=== PATIENT | male | born 1960 ===

== ENCOUNTER 2020-04-24 09:33 | Outpatient (REF) | payer MEDICARE, MEDICAID, SELFPAY | END 2020-04-24 09:34 | disposition home or self-care (01) | LOC: HO.LAB 09:33 | PROVIDERS: PCP Internal Medicine; Visit Provider Internal Medicine | DX: Z20.828 Contact with and (suspected) exposure to other viral communicable diseases (principal) | CPT/HCPCS: C9803; U0003 ==

== ENCOUNTER 2020-05-06 11:39 | Emergency (ER) | payer MEDICARE, MEDICAID, SELFPAY ==
[2020-05-06 11:41] VITALS: PULSE 84; RESP 16; TEMP 37.2; O2SAT 98; BMI 29.9
--- NOTE | 2020-05-06 13:12 | ECG_ITS ---
Test Reason : ELEVATED POTASSIUM Blood Pressure : / mmHG Vent. Rate : 078 BPM Atrial Rate : 078 BPM P-R Int : 196 ms QRS Dur : 080 ms QT Int : 378 ms P-R-T Axes : 028 009 046 degrees QTc Int : 430 ms Normal sinus rhythm Normal ECG When compared with ECG of 24-JUL-2015 09:22, No significant change was found Referred By: Rocío Goldberg Electronically Signed By:PARVEEN HALL MD
--- NOTE | 2020-05-06 13:37 | ED_ITS ---
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 The patient tells me he was seen by his primary care doctor yesterday and had annual labs. He was called this morning and told his potassium level was high and was told to come to the emergency department for further evaluation. The patient has no complaints. He denies any chest pain, shortness breath, cough, dizziness, vomiting, diarrhea or any other complaints. No changes in his medications. MD complaint: abnormal lab Initial visit (ago): day(s) (1 day ) Returns today for: called because of abnormal lab/test Symptoms since prior visit: no new symptoms Context: called for abnormal lab result Associated symptoms: none Related Data Previous Rx's Medication Instructions Recorded sodium polystyrene sulfonate 15 g PO DAILY 1 Days #15 g 05/06/20 Allergies Allergy/AdvReac Type Severity Reaction Status Date / Time No Known Allergies Allergy Verified 05/06/20 11:46 [No Known Allergies*] Review of Systems Review of Systems: Yes all other systems are reviewed and are negative Constitutional: Constitutional: Reports no additional constitutional complaints, Denies body ache(s), Denies chills, Denies fever(s), Denies headache(s) and Denies weakness Eyes: Eyes: Reports no additional eye complaints and Denies change in vision ENT: Reports system reviewed and no additional complaints, except as documented, Denies dizziness, Denies headache(s), Denies nasal congestion, Denies nasal discharge and Denies neck pain Cardiovascular: Cardiovascular: Reports no additional cardiovascular c omplaints, Denies chest pain, Denies leg edema and Denies dyspnea Respiratory: Respiratory: Reports no additional respiratory complaints, Denies cough and Denies dyspnea Gastrointestinal: Gastrointestinal: Reports no additional gastrointestinal complaints, Denies abdominal pain, Denies diarrhea, Denies nausea and Denies vomiting Genitourinary: Genitourinary: Denies urinary incontinence Musculoskeletal: Musculoskeletal: Reports no additional musculoskeletal complaints, Denies back pain, Denies arthralgias, Denies joint swelling, Denies neck pain, Denies numbness and Denies tingling Integumentary/Breasts: Skin/Breast: Reports system reviewed and no additional complaints, except as docu and Denies rash Neurologic: Reports system reviewed and no additional complaints, except as documented, Denies Abnormal speech present, Denies dizziness, Denies headache(s), Denies numbness, Denies tingling and Denies weakness PMFSH Past Medical History Attestation statement: The following information was validated with the patient. Source: old records reviewed and nursing notes reviewed Medical History Diabetes HTN (hypertension) Social History Social History Alcohol intake: unknown Smoking Status: Unknown if ever smoked Use of substances other than those prescribed or required for medical reasons: No Advance Directives: No Advance Directives Information Provided: No Physical Exam Vital Signs: Vital Signs: Last Vital Signs Temp 99.0 F 05/06/20 11:41 Pulse 69 05/06/20 16:00 Resp 12 05/06/20 16:00 BP 132/57 L 05/06/20 16:00 Pulse Ox 94 05/06/20 16:00 Body Mass Index 29.9 Const: General: cooperative, healthy appearing, comfortable and no acute distress Orientation/consciousness: patient oriented x3 Limitations: no limitations HENMT: Head: Yes normal to inspection Ears: hearing grossly normal bilaterally General nose exam: Normal external nose present Face and sinus: Yes normal facial exam Mouth: Normal oral and palatal mucosa present Throat: Yes posterior oropharynx normal Eyes: General: appearance normal, both eyes and all related structures Pupils: Equal, round and reactive pupils present Neck: Neck: Yes normal visual inspection Chest: Chest palpation & inspection: normal inspection of the chest Resp: Effort & Inspection: normal respiratory effort Auscultation: clear to auscultation bilaterally Cardio: Rate: regular rate Rhythm: regular rhythm Peripheral pulses: Peripheral pulses 2+ throughout GI: Inspection: Yes normal to inspection Palpation (GI): Soft to palpation and nontender Auscultation: normal bowel sounds Back/Spine/Pelvis: Thoracic/Lumbar Spine: thoracic and lumbar spine normal to inspection Skin: General skin exam: no rashes or lesions noted Neuro: General: patient oriented x3, no focal motor deficits and normal sensation to monofilament Cranial nerves: Yes Equal, round and reactive pupils present Cognition (Neuro): normal cognition Speech: No Abnormal speech present Gait exam (Neuro): Normal gait present Motor exam (neuro): 5/5 motor strength present throughout Extrem: General: Yes normal to inspection Course Course Course Narrative: 59-year-old male here with abnormal labs. The patient tells me was called for an abnormally high potassium level which had run yesterday as an annual screening by his primary care doctor. He has no complaints. Will plan to recheck potassium and EKG here. 1630- Labs show mildly elevated renal function more c/w with dehydration. Not likely contributing to hyperkalemia. Likely more medication related. On lisinopril. Potassium 5.6. Patient given 1 L of normal saline with improvement of renal function. His repeat potassium is 5.2. Plan for 1 dose of Kayexalate here with repeat tomorrow and then a follow-up with PCP and this week. Patient did have some hypoglycemia but took insulin just prior to arrival and did not eat anything. He was alert and oriented was able to take oral food and recheck of glucose was improved. Reviewed worrisome signs symptoms of when to return to the emergency department. Comfortable discharge home. MDM - Recheck/Abnormal Lab/Rx Medical Records Attestation: I reviewed the patient's medical records. Lab Data Attestation: I reviewed the patient's lab results. Result diagrams: 05/06/20 13:30 05/06/20 15:41 Labs: Lab Results 05/06/20 05/06/20 05/06/20 Range/Units 13:30 13:30 13:30 WBC 7.4 (4.8-10.8) X10*3/uL RBC 3.83 L (4.60-5.80) X10*6/uL Hgb 10.9 L (14.0-18.0) g/dl Hct 35.1 L (42-52) % MCV 91.6 (80-98) fL MCH 28.5 (27.0-33.0) pg MCHC 31.1 (31.0-36.0) g/dl RDW 13.2 (11.0-16.0) % Plt Count 300 (160-400) X10*3/uL MPV 11.5 (9.4-12.4) fL Immature Gran % (Auto) 0.7 H (0.0-0.4) % Neut % (Auto) 40.2 L (45-73) % Lymph % (Auto) 42.9 H (20-40) % [place] % (Auto) 10.7 (2-11) % Eos % (Auto) 4.1 H (0-4) % Baso % (Auto) 1.4 (0-2) % Lymph # (Auto) 3.2 (1.2-4.9) X10*3/uL [place] # (Auto) 0.8 (0.1-1.2) X10*3/uL Eos # (Auto) 0.3 (0.0-0.4) X10*3/uL Baso # (Auto) 0.1 (0.0-0.2) X10*3/uL Abs Immat Gran (auto) 0.05 H (0.00-0.03) X10*3/uL Absolute Neuts (auto) 3.0 (2.0-8.3) X10*3/uL Absolute Nucleated RBC 0.000 (0.0-0.012) X10*3/uL Nucleated RBC % (auto) 0.0 (0.0-0.2) /100WBC Hold Blue Top SEE NOTE Sodium 141 (135-145) mmol/L Potassium 5.6 H (3.3-5.1) mmol/l Chloride 107 (96-108) mmol/L Carbon Dioxide 29 (22-29) mmol/L Anion Gap 11 L (12-20) BUN 48 H (9-16) mg/dL Creatinine 1.31 (0.5-1.4) mg/dL Estim Creat Clear Calc 71.4 Estimated GFR 56 POC Glucose (60-115) mg/dL Random Glucose 75 (60-115) mg/dL Calcium 9.3 (8.4-10.2) mg/dL Magnesium (1.6-2.6) mg/dL Total Bilirubin (0.0-1.0) mg/dL Direct Bilirubin (0.0-0.5) mg/dL AST (5-37) U/L ALT (0-40) U/L Alkaline Phosphatase (39-117) U/L Total Protein (6.5-8.0) g/dL Albumin (3.5-5.0) g/dL 05/06/20 05/06/20 05/06/20 Range/Units 13:30 15:41 17:26 WBC (4.8-10.8) X10*3/uL RBC (4.60-5.80) X10*6/uL Hgb (14.0-18.0) g/dl Hct (42-52) % MCV (80-98) fL MCH (27.0-33.0) pg MCHC (31.0-36.0) g/dl RDW (11.0-16.0) % Plt Count (160-400) X10*3/uL MPV (9.4-12.4) fL Immature Gran % (Auto) (0.0-0.4) % Neut % (Auto) (45-73) % Lymph % (Auto) (20-40) % [place] % (Auto) (2-11) % Eos % (Auto) (0-4) % Baso % (Auto) (0-2) % Lymph # (Auto) (1.2-4.9) X10*3/uL [place] # (Auto) (0.1-1.2) X10*3/uL Eos # (Auto) (0.0-0.4) X10*3/uL Baso # (Auto) (0.0-0.2) X10*3/uL Abs Immat Gran (auto) (0.00-0.03) X10*3/uL Absolute Neuts (auto) (2.0-8.3) X10*3/uL Absolute Nucleated RBC (0.0-0.012) X10*3/uL Nucleated RBC % (auto) (0.0-0.2) /100WBC Hold Blue Top Sodium 142 (135-145) mmol/L Potassium 5.2 H (3.3-5.1) mmol/l Chloride 111 H (96-108) mmol/L Carbon Dioxide 26 (22-29) mmol/L Anion Gap 10 L (12-20) BUN 47 H (9-16) mg/dL Creatinine 1.09 (0.5-1.4) mg/dL Estim Creat Clear Calc 85.8 Estimated GFR > 60 POC Glucose 95 (60-115) mg/dL Random Glucose 40 L* (60-115) mg/dL Calcium 8.2 L D (8.4-10.2) mg/dL Magnesium 2.6 (1.6-2.6) mg/dL Total Bilirubin < 0.2 (0.0-1.0) mg/dL Direct Bilirubin < 0.2 (0.0-0.5) mg/dL AST 19 (5-37) U/L ALT 28 (0-40) U/L Alkaline Phosphatase 112 (39-117) U/L Total Protein 6.1 L (6.5-8.0) g/dL Albumin 3.2 L (3.5-5.0) g/dL ECG Data Attestation: I personally reviewed and interpreted this ECG as follows: ECG interpretation date: 05/06/20 ECG interpretation time: 13:20 Interpretation: Sinus rhythm with rate of 78, normal [place], normal QRS, normal QT Discharge Plan Discharge Clinical Impression: Hypoglycemia, Acute hyperkalemia, Acute dehydration Patient Disposition: Home, Self-Care Instructions: Hypoglycemia in a Person with Diabetes (ED), Hyperkalemia (ED) Additional Instructions: we gave you a dose of Kayexalate here today. Take your next dose tomorrow. Call your doctor tomorrow for a follow-up appointment in next 1-2 days. Some times her medications can cause her potassium level to be high. Do not change her medications before speaking to her primary care doctor. Eat frequent small meals especially after taking insulin as her blood sugar was low today. Prescriptions: New sodium polystyrene sulfonate Powder 15 g PO DAILY 1 Days Qty: 15 RF: 0 Referrals: Freddy Rai MD [Primary Care Provider] - 2 days Interventions: ED Discharge Assessment Last Done: 05/06/20 17:30 Discharge Date/Time: 05/06/20 17:30 Print Language: Bulgarian
[2020-05-06 13:38] LABS: MANUAL DIFF FLAG NO
[2020-05-06 13:39] LABS: Basophils Absolute Auto 0.1 X10*3/uL (0.0-0.2); Basophils Percent Auto 1.4 % (0-2); Eosinophils Absolute Auto 0.3 X10*3/uL (0.0-0.4); Eosinophils Percent Auto 4.1 % (0-4); Hematocrit 35.1 % (42-52); Hemoglobin 10.9 g/dl (14.0-18.0); Imm Gran Abs Auto 0.05 X10*3/uL (0.00-0.03); Imm Gran Pct Auto 0.7 % (0.0-0.4); Lymphocytes Absolute Auto 3.2 X10*3/uL (1.2-4.9); Lymphocytes Percent Auto 42.9 % (20-40); Mean Corpuscular HGB Conc 31.1 g/dl (31.0-36.0); Mean Corpuscular Hemoglobin 28.5 pg (27.0-33.0); Mean Corpuscular Volume 91.6 fL (80-98); Mean Platelet Volume 11.5 fL (9.4-12.4); Monocytes Absolute Auto 0.8 X10*3/uL (0.1-1.2); Monocytes Percent Auto 10.7 % (2-11); Neutrophils Percent Auto 40.2 % (45-73); Platelet Count 300 X10*3/uL (160-400); Red Blood Count 3.83 X10*6/uL (4.60-5.80); Red Cell Distribution Width 13.2 % (11.0-16.0); White Blood Count 7.4 X10*3/uL (4.8-10.8)
[2020-05-06 14:02] LABS: Anion Gap 11 (12-20); Blood Urea Nitrogen 48 mg/dL (9-16); Calcium 9.3 mg/dL (8.4-10.2); Carbon Dioxide 29 mmol/L (22-29); Chloride 107 mmol/L (96-108); Creatinine Clr Calc Pharmacy 71.4; Estimated Glomerular Filt Rate 56; Glucose Random 75 mg/dL (60-115); Potassium 5.6 mmol/l (3.3-5.1); Sodium 141 mmol/L (135-145)
[2020-05-06 14:05] LABS: Alanine Aminotransferase 28 U/L (0-40); Magnesium 2.6 mg/dL (1.6-2.6)
[2020-05-06 14:23] LABS: Albumin Level 3.2 g/dL (3.5-5.0); Alkaline Phosphatase 112 U/L (39-117); Aspartate Amino Transferase 19 U/L (5-37); Bilirubin Direct < 0.2 mg/dL (0.0-0.5); Bilirubin Total < 0.2 mg/dL (0.0-1.0); Total Protein 6.1 g/dL (6.5-8.0)
[2020-05-06] MEDS: 0.9 % Sodium Chloride 1,000 ML 999 ML IV (14:39)
--- NOTE | 2020-05-06 14:39 | PC.NURSE ---
scanning device would not work in room, tried multiple times.
[2020-05-06 16:00] VITALS: BP 132/57; PULSE 69; RESP 12; O2SAT 94
[2020-05-06 16:23] LABS: Anion Gap 10 (12-20); Blood Urea Nitrogen 47 mg/dL (9-16); Calcium 8.2 mg/dL (8.4-10.2); Carbon Dioxide 26 mmol/L (22-29); Chloride 111 mmol/L (96-108); Creatinine Clr Calc Pharmacy 85.8; Estimated Glomerular Filt Rate > 60; Glucose Random 40 mg/dL (60-115); Potassium 5.2 mmol/l (3.3-5.1); Sodium 142 mmol/L (135-145)
[2020-05-06] MEDS: Sodium Polystyrene Sulfon/Sorb 15 GM/60 ML ORAL.SUSP PO (16:56)
[2020-05-06 17:29] LABS: Glucose, Whole Blood 95 mg/dL (60-115)
== END 2020-05-06 17:30 | disposition home or self-care (01) ==
PROVIDERS: Nurse Practitioner Family; Emergency Provider Emergency Medicine Emergency Medical Services; PCP Internal Medicine
DX: E11.649 Type 2 diabetes mellitus with hypoglycemia without coma (principal); E23.2 Diabetes insipidus; E86.0 Dehydration; R79.89 Other specified abnormal findings of blood chemistry; Z79.899 Other long term (current) drug therapy
CPT/HCPCS: 36415; 80048; 80076; 82947; 83735; 85025; 93005; 96360; 99284

== ENCOUNTER 2020-06-27 09:48 | Outpatient (REF) | payer MEDICARE, MEDICAID, SELFPAY | END 2020-06-27 09:49 | disposition home or self-care (01) | LOC: HO.LAB 09:48 | PROVIDERS: Visit Provider Internal Medicine | DX: Z20.822 Contact with and (suspected) exposure to COVID-19 (principal) | CPT/HCPCS: 36415; C9803; U0003 ==

== ENCOUNTER 2020-10-31 11:11 | Outpatient (REF) | payer MEDICARE, MEDICAID, SELFPAY | END 2020-10-31 11:12 | disposition home or self-care (01) | LOC: HO.LAB 11:11 | PROVIDERS: Visit Provider Internal Medicine | DX: Z20.822 Contact with and (suspected) exposure to COVID-19 (principal) | CPT/HCPCS: C9803; U0003; U0005 ==

== ENCOUNTER 2020-11-15 20:54 | Emergency (ER) | payer MEDICARE, MEDICAID, SELFPAY ==
[2020-11-15 21:11] VITALS: BP 139/63; PULSE 81; RESP 16; TEMP 36.7; O2SAT 98; BMI 29.9
--- NOTE | 2020-11-15 21:15 | ECG_ITS ---
Test Reason : HYPERKALEMIA Blood Pressure : / mmHG Vent. Rate : 079 BPM Atrial Rate : 079 BPM P-R Int : 168 ms QRS Dur : 082 ms QT Int : 378 ms P-R-T Axes : 080 024 080 degrees QTc Int : 433 ms Normal sinus rhythm Normal ECG When compared with ECG of 06-MAY-2020 13:20, No significant change was found Referred By: Generic ED Physician Electronically Signed By:Isaac Guzmán
[2020-11-15 21:29] LABS: MANUAL DIFF FLAG NO
[2020-11-15 21:29] LABS: Glucose, Whole Blood 105 mg/dL (60-115)
[2020-11-15 21:34] LABS: Basophils Absolute Auto 0.1 X10*3/uL (0.0-0.2); Eosinophils Absolute Auto 0.4 X10*3/uL (0.0-0.4); Eosinophils Percent Auto 4.5 % (0-4); Hematocrit 35.3 % (42-52); Hemoglobin 11.2 g/dl (14.0-18.0); Imm Gran Abs Auto 0.03 X10*3/uL (0.00-0.03); Imm Gran Pct Auto 0.4 % (0.0-0.4); Lymphocytes Absolute Auto 3.6 X10*3/uL (1.2-4.9); Lymphocytes Percent Auto 43.2 % (20-40); Mean Corpuscular HGB Conc 31.7 g/dl (31.0-36.0); Mean Corpuscular Hemoglobin 28.6 pg (27.0-33.0); Mean Corpuscular Volume 90.3 fL (80-98); Mean Platelet Volume 11.7 fL (9.4-12.4); Monocytes Absolute Auto 0.8 X10*3/uL (0.1-1.2); Monocytes Percent Auto 9.6 % (2-11); Neutrophils Absolute Auto 3.4 X10*3/uL (2.0-8.3); Neutrophils Percent Auto 41.3 % (45-73); Platelet Count 254 X10*3/uL (160-400); Red Blood Count 3.91 X10*6/uL (4.60-5.80); White Blood Count 8.3 X10*3/uL (4.8-10.8)
[2020-11-15 21:56] LABS: Anion Gap 14 (12-20); Blood Urea Nitrogen 42 mg/dL (9-16); Carbon Dioxide 24 mmol/L (22-29); Chloride 107 mmol/L (96-108); Creatinine Clr Calc Pharmacy 69.9; Estimated Glomerular Filt Rate 55; Glucose Random 106 mg/dL (60-115); Sodium 140 mmol/L (135-145)
[2020-11-15 21:58] LABS: Troponin-I High Sensitivity < 3.5 ng/L (<3.5-35.0)
--- NOTE | 2020-11-16 00:29 | ED.RECABL ---
HPI - Recheck/Abnormal Lab/Rx General Chief Complaint: Recheck/Abnormal Lab/Rx Stated Complaint: Abnormal Labs Time Seen by Provider: 11/16/20 00:29 Source: patient, RN notes reviewed and old records reviewed Mode of arrival: ambulatory Limitations: no limitations History of Present Illness HPI narrative: 60-year-old male is here today to recheck his lab work. Patient was called by his PCP at the [facility] that his potassium was elevated. Patient does not recall how high it was. Patient was given Kayexalate as prescription however pharmacy called patient and told him the prescription is not available right now, patient is concerned however has no cardiac symptoms. Denies any CP, PND, syncope, presyncope, palpitations. Related Data Previous Rx's Medication Instructions Recorded sodium polystyrene sulfonate 15 g PO DAILY 1 Days #15 g 05/06/20 Allergies Allergy/AdvReac Type Severity Reaction Status Date / Time No Known Allergies Allergy Verified 11/15/20 21:15 [No Known Allergies*] Review of Systems Review of Systems: Constitutional : No Weight loss, No Fever, No Chills, No Night Sweats, No Fatigue, No Malaise ENT/Mouth : No Hearing loss, No Ear Pain, No Nasal Congestion, No Sinus Pain, No Hoarseness, No sore throat, No Rhinorrhea, No Swallowing Difficulty Eyes: No Eye Pain, No Swelling, No Redness, No Foreign Body, No Discharge, No Vision Changes Cardiovascular : No Chest Pain, No SOB, No Dyspnea on Exertion, No Orthopnea, No Edema, No Palpitations Respiratory : No Cough, No Sputum, No Wheezing, No Smoke Exposure, No Dyspnea Gastrointestinal : No Nausea, No Vomiting, No Diarrhea, No Constipation, No abdominal Pain, No Hematochezia, No Melena Genitourinary : no irregular bleeding, No Dysuria, No Urinary Frequency, No Hematuria, No Urinary Incontinence, No Urgency, No Flank Pain, No Urinary Flow Changes, No Hesitancy Musculoskeletal : No joint pain, No Myalgias, No Joint Swelling Skin : No Skin Lesions, No rash Neuro : No Weakness, No Numbness, No Paresthesias, No Loss of Consciousness, No Dizziness, No Headache Psych : No Anxiety/Panic, No Depression, No SI/HI/AH/VH, No Social Issues, Heme/Lymph: No Bruising, No Bleeding,No Lymphadenopathy Endocrine : No Polyuria, No Polydipsia, No Temperature Intolerance Yes all other systems are reviewed and are negative PMFSH Past Medical History Medical History Diabetes HTN (hypertension) Social History Social History Alcohol intake: unknown Advance Directives: No Advance Directives Information Provided: No Physical Exam Vital Signs: Vital Signs: Last Vital Signs Temp 98.5 F 11/16/20 00:58 Pulse 75 11/16/20 00:58 Resp 16 11/16/20 00:58 BP 153/72 H 11/16/20 00:58 Pulse Ox 98 11/16/20 00:58 Body Mass Index 29.9 Const: General: healthy appearing, no acute distress and well developed Nutritional Appearance: well nourished Orientation/consciousness: patient oriented x3 Neck: Neck: Yes normal visual inspection, Yes full ROM and Yes trachea midline Thyroid: Thyroid normal Resp: Auscultation: clear to auscultation bilaterally Cardio: Rate: regular rate Rhythm: regular rhythm GI: Inspection: Yes normal to inspection and No distended Palpation (GI): No hepatosplenomegaly present Auscultation: normal bowel sounds Skin: General skin exam: elasticity normal, turgor normal and dry skin Neuro: General: patient oriented x3 Course Course Course Narrative: 60-year-old male is here today to recheck his potassium level. His PCP called him to let him know that his potassium level was elevated. Kayexalate was order however not available in pharmacy. Patient is concerned as his doctor called him couple times. Patient denies any cardiac symptoms. Denies any CP, palpitations, syncope, presyncope, PND, SOB with or without exertion. His potassium is 5. I will give him copy of his results so he can bring it to his primary care provider. MDM - Recheck/Abnormal Lab/Rx Lab Data Result diagrams: 11/15/20 21:23 11/15/20 21:23 Labs: Lab Results 11/15/20 11/15/20 11/15/20 Range/Units 21:23 21:23 21:23 WBC 8.3 (4.8-10.8) X10*3/uL RBC 3.91 L (4.60-5.80) X10*6/uL Hgb 11.2 L (14.0-18.0) g/dl Hct 35.3 L (42-52) % MCV 90.3 (80-98) fL MCH 28.6 (27.0-33.0) pg MCHC 31.7 (31.0-36.0) g/dl RDW 14.0 (11.0-16.0) % Plt Count 254 (160-400) X10*3/uL MPV 11.7 (9.4-12.4) fL Immature Gran % (Auto) 0.4 (0.0-0.4) % Neut % (Auto) 41.3 L (45-73) % Lymph % (Auto) 43.2 H (20-40) % [place] % (Auto) 9.6 (2-11) % Eos % (Auto) 4.5 H (0-4) % Baso % (Auto) 1.0 (0-2) % Lymph # (Auto) 3.6 (1.2-4.9) X10*3/uL [place] # (Auto) 0.8 (0.1-1.2) X10*3/uL Eos # (Auto) 0.4 (0.0-0.4) X10*3/uL Baso # (Auto) 0.1 (0.0-0.2) X10*3/uL Abs Immat Gran (auto) 0.03 (0.00-0.03) X10*3/uL Absolute Neuts (auto) 3.4 (2.0-8.3) X10*3/uL Absolute Nucleated RBC 0.000 (0.0-0.012) X10*3/uL Nucleated RBC % (auto) 0.0 (0.0-0.2) /100WBC Hold Blue Top SEE NOTE Sodium 140 (135-145) mmol/L Potassium 5.0 (3.3-5.1) mmol/L Chloride 107 (96-108) mmol/L Carbon Dioxide 24 (22-29) mmol/L Anion Gap 14 (12-20) BUN 42 H (9-16) mg/dL Creatinine 1.32 (0.5-1.4) mg/dL Estim Creat Clear Calc 69.9 Estimated GFR 55 POC Glucose (60-115) mg/dL Random Glucose 106 D (60-115) mg/dL Calcium 9.0 D (8.4-10.2) mg/dL Troponin I High Sens (<3.5-35.0) ng/L 11/15/20 11/15/20 Range/Units 21:23 21:24 WBC (4.8-10.8) X10*3/uL RBC (4.60-5.80) X10*6/uL Hgb (14.0-18.0) g/dl Hct (42-52) % MCV (80-98) fL MCH (27.0-33.0) pg MCHC (31.0-36.0) g/dl RDW (11.0-16.0) % Plt Count (160-400) X10*3/uL MPV (9.4-12.4) fL Immature Gran % (Auto) (0.0-0.4) % Neut % (Auto) (45-73) % Lymph % (Auto) (20-40) % [place] % (Auto) (2-11) % Eos % (Auto) (0-4) % Baso % (Auto) (0-2) % Lymph # (Auto) (1.2-4.9) X10*3/uL [place] # (Auto) (0.1-1.2) X10*3/uL Eos # (Auto) (0.0-0.4) X10*3/uL Baso # (Auto) (0.0-0.2) X10*3/uL Abs Immat Gran (auto) (0.00-0.03) X10*3/uL Absolute Neuts (auto) (2.0-8.3) X10*3/uL Absolute Nucleated RBC (0.0-0.012) X10*3/uL Nucleated RBC % (auto) (0.0-0.2) /100WBC Hold Blue Top Sodium (135-145) mmol/L Potassium (3.3-5.1) mmol/L Chloride (96-108) mmol/L Carbon Dioxide (22-29) mmol/L Anion Gap (12-20) BUN (9-16) mg/dL Creatinine (0.5-1.4) mg/dL Estim Creat Clear Calc Estimated GFR POC Glucose 105 (60-115) mg/dL Random Glucose (60-115) mg/dL Calcium (8.4-10.2) mg/dL Troponin I High Sens < 3.5 (<3.5-35.0) ng/L Discharge Plan Discharge Clinical Impression: Alteration in lab values Patient Disposition: Home, Self-Care Instructions: Normal Exam (ED) Additional Instructions: Your sent to emergency department to recheck your potassium level as your potassium level was high per your primary care provider. However your potassium level in the emergency department tonight was 5. Please follow-up with your PCP in the next 2-3 days. You may return to emergency department leave he will experience any additional concerning symptoms. Prescriptions: No Action sodium polystyrene sulfonate Powder 15 g PO DAILY 1 Days Qty: 15 RF: 0 Interventions: ED Discharge Assessment Last Done: 11/16/20 01:02 Discharge Date/Time: 11/16/20 01:03
[2020-11-16 00:58] VITALS: BP 153/72; PULSE 75; RESP 16; TEMP 36.9; O2SAT 98
== END 2020-11-16 01:03 | disposition home or self-care (01) ==
PROVIDERS: Emergency Provider Emergency Medicine Emergency Medical Services
DX: R79.89 Other specified abnormal findings of blood chemistry (principal); E11.9 Type 2 diabetes mellitus without complications; I10 Essential (primary) hypertension; Z79.899 Other long term (current) drug therapy
CPT/HCPCS: 36415; 80048; 82947; 84484; 85025; 93005; 99283

== ENCOUNTER 2021-03-09 11:18 | Emergency (ER) | payer MEDICARE, MEDICAID, SELFPAY ==
[2021-03-09 12:54] VITALS: BP 124/64; PULSE 73; RESP 19; TEMP 35.5; O2SAT 97; BMI 30.4
--- NOTE | 2021-03-09 13:27 | ED_ITS ---
HPI - Wound/Laceration General Chief Complaint: Wound/Laceration Stated Complaint: FALL Time Seen by Provider: 03/09/21 13:27 Source: patient and family () Mode of arrival: ambulatory Limitations: no limitations History of Present Illness HPI narrative: 60-year-old insulin-dependent diabetic lost his balance due to his neuropathy and fell on to a glass table landing on his left hip. Patient had no head strike, no loss of consciousness. This was a mechanical fall, no dizziness, lightheadedness, chest pain, or shortness of breath preceded the fall. Patient has had itching on his left hip, no pain is washing area daily, applying bacitracin. Related Data Previous Rx's Medication Instructions Recorded sodium polystyrene sulfonate 15 g PO DAILY 1 Days #15 g 05/06/20 Allergies Allergy/AdvReac Type Severity Reaction Status Date / Time No Known Allergies Allergy Verified 11/15/20 21:15 [No Known Allergies*] Review of Systems Constitutional: Constitutional: Denies body ache(s), Denies chills, Denies fatigue, Denies fever(s), Denies headache(s), Denies malaise and Denies weakness Eyes: Eyes: Denies diplopia ENT: Denies vertigo, Denies dizziness, Denies otalgia, Denies headache(s), Denies mouth pain, Denies post nasal drip, Denies sinus pain, Denies sinus pressure, Denies sore throat and Denies throat swelling Cardiovascular: Cardiovascular: Denies chest pain, Denies syncope, Denies leg edema, Denies lightheadedness, Denies Loss of Consciousness, Denies palpitations and Denies dyspnea Respiratory: Respiratory: Denies chest congestion, Denies cough and Denies dyspnea Gastrointestinal: Gastrointestinal: Reports abdominal pain, Denies hemat ochezia, Denies constipation, Denies diarrhea and Denies vomiting Musculoskeletal: Musculoskeletal: Reports no additional musculoskeletal complaints Integumentary/Breasts: Comments: Laceration to left hip Neurologic: Denies confusion, Denies vertigo, Denies dizziness, Denies syncope, Denies headache(s) and Denies weakness Psychiatric: Psychiatric: Denies anxiety, Denies confusion and Denies depression Endocrine: Endocrine: Denies fatigue and Denies palpitations Allergic/Immunologic: Allergic/Immunologic: Denies throat swelling PMFSH Past Medical History Medical History Diabetes HTN (hypertension) Social History Social History Alcohol intake: unknown Advance Directives: No Advance Directives Information Provided: No Physical Exam Vital Signs: Vital Signs: Last Vital Signs Temp 95.9 F L 03/09/21 12:54 Pulse 73 03/09/21 12:54 Resp 19 03/09/21 12:54 BP 124/64 03/09/21 12:54 Pulse Ox 97 03/09/21 12:54 Body Mass Index 30.4 Const: General: No confusion Nutritional Appearance: well nourished Orientation/consciousness: No confusion Limitations: no limitations Eyes: Conjunctivae: conjunctivae normal Pupils: Equal, round and reactive p upils present EOM: EOMs intact bilaterally Neck: Neck: Yes full ROM, Yes no lymphadenopathy and Yes supple Resp: Effort & Inspection: normal respiratory effort and able to speak in complete sentences Auscultation: clear to auscultation bilaterally, no crackles, no rales, no rhonchi and no wheezes Cardio: Rate: regular rate Rhythm: regular rhythm Heart sounds: S1 normal heart sound present and S2 normal heart sound present Back/Spine/Pelvis: Thoracic/Lumbar Spine: No thoracic spinal tenderness and No lumbar spinal tenderness Pelvis: no pain with anterior-posterior compression, no pain with lateral compression and buttock ecchymosis Back/spine/pelvis image: 1. Area of ecchymosis Neuro: General: No confusion Cranial nerves: Yes Equal, round and reactive pupils present Extrem: General: Yes normal to inspection and Yes full ROM Psych: Appearance: grossly normal Affect: normal affect Attitude: cooperative Thought process: Normal thought process present Discharge Plan Discharge Clinical Impression: Abrasion Patient Disposition: Home, Self-Care Instructions: Abrasion (ED) Additional Instructions: Please continue to dress his wounds the way have been doing, wash with soap and water, pat dry, thin layer bacitracin. This wound on his left hip looks good to me today, it is not red, it is not infected. Please return to the emergency room for any new or concerning symptoms. Prescriptions: No Action sodium polystyrene sulfonate Powder 15 g PO DAILY 1 Days Qty: 15 RF: 0 Interventions: ED Discharge Assessment Last Done: 03/09/21 13:52 Discharge Date/Time: 03/09/21 13:54
[2021-03-09] MEDS: Diphth,Pertus(ACell),Tet Adult 0.5 ML SYRINGE IM (13:48)
== END 2021-03-09 13:54 | disposition home or self-care (01) ==
PROVIDERS: Emergency Provider Emergency Medicine; PCP Internal Medicine
DX: S70.212A Abrasion, left hip, initial encounter (principal); M25.552 Pain in left hip; I10 Essential (primary) hypertension; W01.10XA Fall on same level from slipping, tripping and stumbling with subsequent striking against unspecified object, initial encounter; Y93.9 Activity, unspecified; Y92.9 Unspecified place or not applicable; Y99.9 Unspecified external cause status; Z79.899 Other long term (current) drug therapy
CPT/HCPCS: 90471; 90715; 99283; 99284

== ENCOUNTER 2021-06-23 10:03 | Outpatient (REF) | payer MEDICARE, MEDICAID, SELFPAY ==
[2021-06-23 13:37] LABS: Binax Now Covid-19 Ag Negative (Negative)
[2021-06-23 13:38] LABS: Binax Internal Control QC Valid
== END 2021-06-23 10:04 | disposition home or self-care (01) ==
LOC: HO.LAB 10:03
PROVIDERS: Visit Provider Internal Medicine
DX: Z20.822 Contact with and (suspected) exposure to COVID-19 (principal)
CPT/HCPCS: C9803

== ENCOUNTER 2022-02-02 20:03 | Emergency (ER) | payer MEDICARE, MEDICAID, SELFPAY ==
[2022-02-02 20:41] VITALS: BP 171/81; PULSE 86; RESP 17; TEMP 36.3; O2SAT 96; BMI 29.9
--- NOTE | 2022-02-02 20:43 | PC.NURSE ---
Patient ran out of BP meds approximately 1 month ago, hypertensive at triage. 171/81.
== END 2022-02-03 03:56 | disposition left against medical advice (07) ==
LOC: HO.ED 23:37
PROVIDERS: Emergency Provider Emergency Medicine; PCP Internal Medicine
DX: R60.0 Localized edema (principal)
CPT/HCPCS: 99281

== ENCOUNTER 2022-03-24 19:19 | Emergency (ER) | payer OTHER, MEDICARE, MEDICAID, SELFPAY ==
[2022-03-24 21:07] VITALS: BP 124/65; PULSE 82; RESP 16; TEMP 36.6; O2SAT 98; BMI 30.2
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
== END 2022-03-24 22:17 | disposition home or self-care (01) ==
LOC: HO.ED 22:08
PROVIDERS: Emergency Provider Emergency Medicine
DX: M54.50 Low back pain, unspecified (principal)
CPT/HCPCS: 99282; 99283

== ENCOUNTER 2022-03-29 15:20 | Outpatient (REF) | payer OTHER, MEDICARE, MEDICAID, SELFPAY ==
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
== END 2022-03-29 15:21 | disposition home or self-care (01) ==
LOC: HO.XRAY 15:20
PROVIDERS: PCP Internal Medicine; Visit Provider Chiropractor
DX: S13.4XXA Sprain of ligaments of cervical spine, initial encounter (principal); S23.3XXA Sprain of ligaments of thoracic spine, initial encounter; S33.5XXA Sprain of ligaments of lumbar spine, initial encounter
CPT/HCPCS: 72040; 72072; 72100

== ENCOUNTER 2022-04-03 14:37 | Emergency (ER) | payer OTHER, MEDICARE, MEDICAID, SELFPAY ==
--- NOTE | ~2022-04-03 | CT_ITS ---
EXAMINATION: CT ABDOMEN AND PELVIS WITHOUT CONTRAST CLINICAL INFORMATION: Epigastric pain COMPARISON: None TECHNIQUE: Multidetector volumetric imaging was performed from the superior aspect of the liver through the pubic symphysis. Sagittal and coronal reformatted images were obtained on the technologist's workstation. This CT examination was performed using dose optimization techniques as appropriate, variously including the following: *Automated exposure control *Adjustment of mA and/or kV according to patient size (this includes techniques or standardized protocols for targeted exams where dose is matched to indication/reason for exam; i.e. extremities or head) *Use of iterative reconstruction technique DLP: 781 mGy-cm FINDINGS: LUNG BASES: Calcified granulomata at both bases symmetrical gynecomastia moderate severity. Scarring or discoid atelectasis right base middle lobe. LIVER, GALLBLADDER, AND BILIARY TREE: The liver is normal in size, shape, and attenuation. No focal hepatic lesion or biliary ductal dilatation is present. The gallbladder is unremarkable with no evidence of radiopaque gallstones, gallbladder wall thickening, or obvious pericholecystic inflammatory changes. PANCREAS: Unremarkable. SPLEEN: Unremarkable. ADRENAL GLANDS: Unremarkable. KIDNEYS AND URETERS: The kidneys are normal in size, shape, and attenuation. No hydronephrosis, hydroureter, or calculi seen. No perinephric stranding. BLADDER: Bladder wall relatively thick diffusely. No discrete lesion or stones. GASTROINTESTINAL TRACT: The small and large bowel are unremarkable. The appendix is unremarkable. Small axial type hiatus hernia. ABDOMINAL WALL: No significant hernia is appreciated. LYMPH NODES: Normal. VASCULAR: Unremarkable. PELVIC VISCERA: Unremarkable. OSSEOUS STRUCTURES: Unremarkable. CT/CT abdomen pelvis wo IV con IMPRESSION: 1. No specific findings to explain patient's symptoms. 2. Incidental findings as above. Nonspecific bladder wall thickening. Fleischner guidelines were followed.
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
[2022-04-03 14:58] VITALS: BP 152/60; PULSE 84; RESP 18; TEMP 36.6; O2SAT 97; BMI 30.4
--- NOTE | 2022-04-03 15:03 | ECG_ITS ---
Test Reason : CP Blood Pressure : / mmHG Vent. Rate : 082 BPM Atrial Rate : 082 BPM P-R Int : 186 ms QRS Dur : 086 ms QT Int : 362 ms P-R-T Axes : 045 001 053 degrees QTc Int : 422 ms Normal sinus rhythm Normal ECG When compared with ECG of 15-NOV-2020 21:18, No significant change was found Referred By: Generic ED Physician Electronically Signed By:PARVEEN HALL MD
--- OUTSIDE RECORDS SUMMARY | 2022-04-03 15:40 | XMS_ITS | Continuity of Care Document ---
:1960 Author Organization [facility] Address [address] [place] [phone]- Care Team Providers Name Role Phone Fredi COLEMAN MD, Freddy Stephenson Primary Care Physician Encounter [facility] [place] Date(s): 06/02/20 - 07/02/20 [facility] [address] [place] [id number] Allergies, Adverse Reactions, Alerts Substance Reaction Severity Status NKA Active Immunizations Not Given Vaccine Date Status Refusal Reason pneumococcal 23-valent vaccine 05/31/18 Not Given P atient Refuses Medications Alcohol Pads See Instructions, # 200 each, Refills 5, Tot. Refills 5, Maintenance, use as directed for Type 1 Diabetes Mellitus, 11/28/18 16:25:00 EDT, Compound Start Date: 11/28/18 Stop Date: 05/27/19 Status: OrderedALPRAZOLAM 1 MG TABS ALPRAZOLAM 1 MG TABS, 0 Refills, Maintenance, 09/04/18 9:26:40 EDT Start Date: 09/04/18 Status: OrderedAMMONIUM LACTATE 12 % CREA AMMONIUM LACTATE 12 % CREA, 0 Refills, Maintenance, 09/04/18 9:26:43 EDT Start Date: 09/04/18 Status: OrderedATORVASTATIN CALCIUM 80 MG TABS ATORVASTATIN CALCIUM 80 MG TABS, 0 Refills, Maintenance, 09/04/18 9:26:48 EDT Start Date: 09/04/18 Status: OrderedClonazepam = 20 mg, By Mouth, 2 times a day, 1pill in AM 2 pills in PM, 0 Refills, Maintenance, 05/30/18 17:05:05 EST Start Date: 05/30/18 Status: OrderedDiabetic shoes Diabetic shoes, See Instructions, # 1 each, Refills 1, Tot. Refills 1, Maintenance, dx E10.9, severeperipheral neuropathy, frequent falls, 03/10/20 16:16:00 EDT, Supply Start Date: 03/10/20 Status: OrderedDOXYCYCLINE MONOHYDRATE 100 MG TABS DOXYCYCLINE MONOHYDRATE 100 MG TABS, 0 Refills, Maintenance, 09/04/18 9:26:31 EDT Start Date: 09/04/18 Status: OrderedENALAPRIL MALEATE 10 MG TABS ENALAPRIL MALEATE 10 MG TABS, 0 Refills, Maintenance, 09/04/18 9:26:42 EDT Start Date: 09/04/18 Status: OrderedFLUoxetine 20 mg oral capsule 20 mg, 1, capsule, By Mouth, Daily, # 60 capsule, Refills 0, Maintenance, 05/30/18 17:06:31 EST Start Date: 05/30/18 Status: OrderedFLUOXETINE HCL 20 MG CAPS FLUOXETINE HCL 20 MG CAPS, 0 Refills, Maintenance, 09/04/18 9:26:37 EDT Start Date: 09/04/18 Status: OrderedFLUTICASONE PROPIONATE 50 MCG/ACT SUSP FLUTICASONE PROPIONATE 50 MCG/ACT SUSP, 0 Refills, Maintenance, 09/04/18 9:26:39 EDT Start Date: 09/04/18 Status: OrderedFreestyle Quynh 2 CGM Freestyle Quynh 2 CGM, See Instructions, # 1 each, Refills 1, Tot. Refills 1, Maintenance, use to check BS 5 times daily, 03/10/20 16:02:00 EDT, Supply, 180, cm, 03/04/20 6:18:00 EDT, Height, 100.3, kg, 03/04/20 6:18:00 EDT, Dry Weight Start Date: 03/10/20 Status: OrderedFreestyle Quynh 2 sensors Freestyle Quynh 2 sensors, See Instructions, # 2 each, Refills 11, Tot. Refills 11, Maintenance, change every 14 days, 03/10/20 16:03:00 EDT, Supply, 180, cm, 03/04/20 6:18:00 EDT, Height, 100.3, kg, 03/04/20 6:18:00 EDT, Dry Weight Start Date: 03/10/20 Status: OrderedGABAPENTIN 300 MG CAPS GABAPENTIN 300 MG CAPS, 0 Refills, Maintenance, 09/04/18 9:26:36 EDT Start Date: 09/04/18 Status: OrderedGlucose Tablets See Instructions, # 100 each, Refills 5, Tot. Refills 5, Maintenance, take 4-8 tablets as needed forsymptoms of hypoglycemia, 09/20/16 21:56:03, Compound Start Date: 09/20/16 Status: OrderedHumaLOG KwikPen 200 units/mL (Concentrated) subcutaneous solution See Instructions, Inject 3 times daily with meals, E 10.9, 90 days, max 120 units/d, # 18 each, 4 Refills, Maintenance, 03/10/20 16:09:00 EDT, [facility]/pharmacy #[id number], 6 pens per month, 180, cm, 03/04/20 6:18:00 EDT, Height, 100.3, kg, 03/04/20 6:18:00 EDT... Start Date: 03/10/20 Status: OrderedMethadone = 50 mg, By Mouth, Daily, [facility], 0 Refills, Maintenance, 05/30/18 17:15:33 EST Start Date: 05/30/18 Status: OrderedOneTouch Verio Test Strips See Instructions, # 450 each, Refills 4, Tot. Refills 4, Maintenance, Use to test blood glucose up to 5 times a day, E10.65, 03/10/20 16:10:00 EDT, Compound, 180, cm, 03/04/20 6:18:00 EDT, Height, 100.3, kg, 03/04/20 6:18:00 EDT, Dry Weight Start Date: 03/10/20 Status: OrderedPen [place], 31 G x 5 mm BD Ultra Fine III See Instructions, # 450 each, Refills 4, Tot. Refills 4, Maintenance, use to inject insulin 5 times a day for Type 1 Diabetes Mellitus, E 10.9, 90 days, 03/10/20 16:10:00 EDT, Compound, 180, cm, 03/04/20 6:18:00 EDT, Height, 100.3, kg, 03/04/20 6:18:0... Start Date: 03/10/20 Stop Date: 08/07/20 Status: OrderedPROAIR HFA 108 (90 Base) MCG/ACT AERS PROAIR HFA 108 (90 Base) MCG/ACT AERS, 0 Refills, Maintenance, 09/04/18 9:26:34 EDT Start Date: 09/04/18 Status: OrderedTRESIBA FLEXTOUCH 100 UNIT/ML SOPN TRESIBA FLEXTOUCH 100 UNIT/ML SOPN, 0 Refills, Maintenance, 09/04/18 9:26:45 EDT Start Date: 09/04/18 Status: OrderedTresiba FlexTouch 200 units/mL subcutaneous solution See Instructions, 50 units in am and 50 units at bedtime, 90 days E10.9, # 15 each, 4 Refills, Maintenance, 03/10/20 16:05:00 EDT, [facility]/pharmacy #[id number], 5 pens per month, 180, cm, 03/04/20 6:18:00 EDT, Height, 100.3, kg, 03/04/20 6:18:00 EDT, Dry Weight Start Date: 03/10/20 Status: OrderedXanax 1 mg oral tablet 1 tablet = 1 mg, By Mouth, 2 times a day, 1 in AM 2 in PM, 0 Refills, Maintenance, 05/30/18 17:06:02EST, Tablet Start Date: 05/30/18 Status: Ordered Problem List Condition Effective Dates Status Health Status Informant Hyperlipidemia(Confirmed) Active HTN (hypertension)(Confirmed) Active MARIANGEL (obstructive sleep Active apnea)(Confirmed) Long-term current use of methadone for Active opiate dependence(Confirmed) T1DM (type 1 diabetes Active mellitus)(Confirmed) Social History Social History Type Response Sex Male
--- OUTSIDE RECORDS SUMMARY | 2022-04-03 15:40 | XMS_ITS | Continuity of Care Document ---
:1960 Author Organization [facility] Address [address] [place] [phone]- Care Team Providers Name Role Phone Fredi COLEMAN MD, Freddy Stephenson Primary Care Physician [place] [facility] [place] 12/19[place] - 01/18/21 [facility] [address] [place] [id number] Attending Physician: AdmMoris meier Admitting Physician: Admtr, [id number] Referring Physician: Admtr, [id number] Allergies, Adverse Reactions, Alerts Substance Reaction Severity [...] each, 4 Refills, Maintenance, 03/10/20 16:09:00 EDT, [facility]/pharmacy #[id number], 6 pens per month, 180, cm, 03/04/20 6:18:00 EDT, Height, 100.3, kg, 03/04/20 6:18:00 EDT... Start Date: 03/10/20 Status: OrderedMethadone = 50 mg, By Mouth, Daily, [facility], 0 Refills, Maintenance, 05/30/18 17:15:33 EST Start Date: 05/30/18 Status: OrderedOneTouch Verio Test Strips See Instructions, # 450 each, Refills 4, Tot. Refills 4, Maintenance, Use to test blood glucose up to 5 times a day, E10.65, 03/10/20 16:10:00 EDT, Compound, 180, cm, 03/04/20 6:18:00 EDT, Height, 100.3, kg, 03/04/20 6:18:00 EDT, Dry Weight Start Date: 03/10/20 Status: OrderedPen [place], 31 G x 5 mm BD Ultra [...] FlexTouch 200 units/mL subcutaneous solution See Instructions, please inject twice daily ; 50 units in am and 30 units at bedtime, 90 days E10.9,# 12 each, 4 Refills, Maintenance, 01/01/21 19:03:00 EDT, 4 pens per month, 180, cm, 12/19/20 14:48:00 EDT, Height, 100.3, kg, 03/04/20 6:18:00 EDT, D... Start Date: 01/01/21 Status: OrderedXanax 1 mg oral tablet 1 [...]
--- OUTSIDE RECORDS SUMMARY | 2022-04-03 15:40 | XMS_ITS | Continuity of Care Document ---
:1960 Author Organization [facility] Address [address] [place] [phone]- Care Team Providers Name Role Phone Fredi COLEMAN MD, Freddy Stephenson Primary Care Physician Encounter [facility] [place] Date(s): 01/16/20 - 02/15/20 [facility] [address] [place] [phone]- [facility] Allergies, Adverse Reactions, Alerts Substance Reaction Severity [...] 05/30/18 17:05:05 EST Start Date: 05/30/18 Status: OrderedDOXYCYCLINE MONOHYDRATE 100 MG TABS DOXYCYCLINE [...] 09/04/18 9:26:39 EDT Start Date: 09/04/18 Status: OrderedGABAPENTIN 300 MG CAPS GABAPENTIN 300 MG CAPS, 0 Refills, Maintenance, 09/04/18 9:26:36 EDT Start Date: 09/04/18 Status: OrderedGlucose Tablets See Instructions, # 100 each, Refills 5, Tot. Refills 5, Maintenance, take 4-8 tablets as needed forsymptoms of hypoglycemia, 09/20/16 21:56:03, Compound Start Date: 09/20/16 Status: OrderedHumalog Kwik Pen 100 units/mL subcutaneous injection See Instructions, 100-149: 6 units, 208284: 8 units, 200-249: 10 units, 250-299: 12 units, 300-349: 14 units, 350-399: 16 units, call MD if glucose less than 80 or more than 400., # 60 mL, 5 Refills, Maintenance, 06/01/18 9:32:36 EST Start Date: 06/01/18 Status: Orderedlisinopril 2.5 mg oral tablet 2.5 mg, 1, tablet, By Mouth, Daily, # 30 tablet, Refills 11, Tot. Refills 11, Maintenance, 09/07/18 9:28:27 EDT, Route to Pharmacy Electronically, [id number], [facility]/pharmacy #[id number] Start Date: 09/07/18 Stop Date: 09/02/19 Status: OrderedMethadone = 50 mg, By Mouth, Daily, [facility], 0 Refills, Maintenance, 05/30/18 17:15:33 EST Start Date: 05/30/18 Status: OrderedOneTouch Verio Test Strips See Instructions, # 150 each, Refills 11, Tot. Refills 11, Maintenance, Use to test blood glucose upto 5 times a day, E10.65, 01/17/20 10:12:00 EDT, Compound, 180, cm, 12/24/19 13:08:00 EDT, Height, 95.2, kg, 05/30/18 16:59:00 EST, Dry Weight Start Date: 01/17/20 Status: OrderedOneTouch Verio Test Strips See Instructions, # 200 each, Refills 5, Tot. Refills 5, Maintenance, to test blood glucose 5 times a day for Dx E 10.9, 07/16/16 16:18:18, Compound Start Date: 07/16/16 Status: OrderedPen [place], 31 G x 5 mm BD Ultra Fine III See Instructions, # 150 each, Refills 5, Tot. Refills 5, Maintenance, use to inject insulin 5 times a day for Type 1 Diabetes Mellitus, 07/16/16 16:16:41, Compound Start Date: 07/16/16 Stop Date: 01/12/17 Status: OrderedPROAIR HFA 108 (90 Base) MCG/ACT AERS PROAIR HFA 108 (90 Base) MCG/ACT AERS, 0 Refills, Maintenance, 09/04/18 9:26:34 EDT Start Date: 09/04/18 Status: OrderedTRESIBA FLEXTOUCH 100 UNIT/ML SOPN TRESIBA FLEXTOUCH 100 UNIT/ML SOPN, 0 Refills, Maintenance, 09/04/18 9:26:45 EDT Start Date: 09/04/18 Status: OrderedTresiba FlexTouch 200 units/mL subcutaneous solution See Instructions, 35 units in am and 30 units at bedtime, # 45 mL, 5 Refills, Maintenance, 06/01/18 9:34:21 EST Start Date: 06/01/18 Status: OrderedXanax 1 mg oral tablet 1 tablet = 1 mg, By Mouth, 2 times a day, 1 in AM 2 in PM, 0 Refills, Maintenance, 05/30/18 17:06:02EST, Tablet Start Date: 05/30/18 Status: Ordered Problem List Condition Effective Dates Status Health Status Informant T1DM (type 1 diabetes Active mellitus)(Confirmed) Social History Social History Type Response Sex Male
--- OUTSIDE RECORDS SUMMARY | 2022-04-03 15:40 | XMS_ITS | Continuity of Care Document ---
:1960 Author Organization [facility] Address [address] [place] [address]- Care Team Providers Name Role Phone Fredi COLEMAN MD, Freddy Stephenson Primary Care Physician [id number] Date(s): 03/03/20 - 03/04/[address] [address]- [facility] Discharge Disposition: A-D/C AMA Attending Physician: Berlin Castillo MD Admitting Physician: Lane ARANDA, Ayush Referring Physician: Not on Staff, Referring MD Allergies, Adverse Reactions, Alerts Substance Reaction Severity [...] subcutaneous injection See Instructions, 100-149: 6 units, 843496: 8 units, 200-249: 10 units, 250-299: 12 [...] 09/07/18 9:28:27 EDT, Route to Pharmacy Electronically, [id number], [facility]/pharmacy #[id number] Start Date: 09/07/18 Stop Date: 09/02/19 Status: OrderedMethadone = 50 mg, By Mouth, Daily, [facility], 0 Refills, Maintenance, 05/30/18 17:15:33 EST Start [...] 16:18:18, Compound Start Date: 07/16/16 Status: OrderedPen [place], 31 G x 5 mm BD Ultra [...] Informant T1DM (type 1 diabetes Active mellitus)(Confirmed) Results Radiology Reports Exam Date Time Procedure Performing Provider Status 03/03/20 3:21 PM Chest 2 Views Frontal and Lat Carlos Massey; Au th (Verified) Notes:(Chest 2 Views Frontal and Lat) Reason For Exam: Shortness of Breath RESULT: Chest 2 Views Frontal and Lat Chest 2 Views Frontal and Lat INDICATION: From urgent care known diabetic no new complaints has chronic issues recent lab work ECGappears unchanged from previous BS 58 given oral glucose reports feeling better. Aox 4 English speaking no distress notedNeuros intact no current complaints.; Reason: Shortness of Breath; Clinical Question(s): Pneumonia / Pneumonia COMPARISON: 05/30/2018 FINDINGS: LINES AND TUBES: None. LUNGS AND PLEURA: Mild linear scarring or atelectasis in the right mid lung. No consolidation or evidence of pulmonaryedema. No pleural effusion. No pneumothorax. HEART, MEDIASTINUM AND ELIA: Heart is normal in size. Normal mediastinal and hilar contour. BONES AND SOFT TISSUES: No acute abnormality. IMPRESSION: No evidence of acute abnormality. WSN: [id number] Ordering Physician: Sandeep Beasley Dictated By: Roly Curran MD Dictated Date/Time: 03/03/20 3:24 pm Reviewed By: Roly Curran MD Signed By: Roly Curran MD Signed Date/Time: 03/03/20 3:24 pm Transcribed By: JAY Transcribed Date/Time: 03/03/20 3:23 pm Vital Signs Most recent to oldest 1 2 3 [Reference Range]: Height 180 cm 180 cm 180 cm (03/04/20 6:18 AM) (03/04/20 4:00 AM) (03/04/20 1:3 2 AM) Weight 100.3 kg 100.3 kg 100.3 kg (03/04/20 6:18 AM) (03/04/20 4:00 AM) (03/04/20 1:3 2 AM) Oxygen Saturation [94-100 %] 96 % 97 % 99 % (03/04/20 6:18 AM) (03/04/20 4:00 AM) (03/04/20 1:3 2 AM) Pulse Rate [55-90 bpm] 89 bpm 84 bpm 93 bpm (03/04/20 6:18 AM) (03/04/20 4:00 AM) *H* (03/04/20 1:32 AM ) Body Mass Index [18.5-24.99] 30.96 30.96 30. 96 *>HHI* *>HHI* *>HHI* (03/04/20 6:18 AM) (03/04/20 4:00 AM) (03/04/20 1:3 2 AM) Blood Pressure [90-138/55-84 mm 178/87 mm Hg 152/77 mm Hg 189/80 mm Hg Hg] *H* *H* *H* (03/04/20 6:18 AM) (03/04/20 4:00 AM) (03/04/20 1:3 2 AM) Respiratory Rate [16-30 br/min] 18 br/min 22 br/min 21 br/min (03/04/20 6:18 AM) (03/04/20 4:00 AM) (03/04/20 1:3 2 AM) Temperature [96.8-100.4 DegF] 98.1 DegF 99.6 DegF 98 .1 DegF (03/04/20 6:18 AM) (03/04/20 4:00 AM) (03/04/20 1:3 2 AM) Mode of Delivery (Oxygen) Room air Room air Room a ir (03/04/20 6:18 AM) (03/04/20 4:00 AM) (03/04/20 1:3 2 AM) Blood pressure sites Arm, right Arm, right Arm, right (03/04/20 6:18 AM) (03/04/20 4:00 AM) (03/04/20 1:3 2 AM) Temperature Route Oral Oral Oral (03/04/20 6:18 AM) (03/04/20 4:00 AM) (03/04/20 1:3 2 AM) Dry Weight 100.3 kg 100.3 kg 100.3 kg (03/04/20 6:18 AM) (03/04/20 4:00 AM) (03/04/20 1:3 2 AM) Weight Obtained Via Standing scale (03/03/20 1:43 PM) Dry Weight Obtained Via Standing scale (03/03/20 1:43 PM) Social History Social History Type Response Sex Male
--- OUTSIDE RECORDS SUMMARY | 2022-04-03 15:40 | XMS_ITS | Continuity of Care Document ---
:1960 Author Organization [facility] Address [address] [place] [address]- Care Team Providers Name Role Phone Fredi COLEMAN MD, Freddy Stephenson Primary Care Physician En[place] [facility] [place] Date(s): 01/01/21 - 01/31/21 [facility] [address] [place] [address]- Allergies, Adverse Reactions, Alerts Substance Reaction Severity [...] each, 4 Refills, Maintenance, 03/10/20 16:09:00 EDT, [facility]/pharmacy #[id number], 6 pens per month, 180, cm, 03/04/20 6:18:00 EDT, Height, 100.3, kg, 03/04/20 6:18:00 EDT... Start Date: 03/10/20 Status: OrderedMethadone = 50 mg, By Mouth, Daily, [facility], 0 Refills, Maintenance, 05/30/18 17:15:33 EST Start Date: 05/30/18 Status: OrderedOneTouch Verio Test Strips See Instructions, # 450 each, Refills 4, Tot. Refills 4, Maintenance, Use to test blood glucose up to 5 times a day, E10.65, 03/10/20 16:10:00 EDT, Compound, 180, cm, 03/04/20 6:18:00 EDT, Height, 100.3, kg, 03/04/20 6:18:00 EDT, Dry Weight Start Date: 03/10/20 Status: OrderedPen [place], 31 G x 5 mm BD Ultra [...]
--- OUTSIDE RECORDS SUMMARY | 2022-04-03 15:40 | XMS_ITS | Continuity of Care Document ---
:1960 Author Organization [facility] Address [address] [place] [address]- Care Team Providers Name Role Phone Fredi COLEMAN MD, Freddy Stephenson Primary Care Physician [place] [facility] [place] Date(s): 06/15/21 - 07/15/21 [facility] [address] [place] [id number] Allergies, Adverse Reactions, Alerts No Known Allergies Immunizations Not Given Vaccine Date Status Refusal [...] units/d, # 18 each, 4 Refills, Maintenance, 06/15/21 15:11:00 EST, [facility], 6 pens per month, 180, cm, 12/19/20 14:48:00 EDT, Height, 100.3, kg, 03/04/... Start Date: 06/15/21 Status: OrderedMethadone = 50 mg, By Mouth, Daily, [facility], 0 Refills, Maintenance, 05/30/18 17:15:33 EST Start Date: 05/30/18 Status: OrderedOneTouch Verio Test Strips See Instructions, # 450 each, Refills 4, Tot. Refills 4, Maintenance, Use to test blood glucose up to 5 times a day, E10.65, 06/15/21 15:12:00 EST, Compound, 180, cm, 12/19/20 14:48:00 EDT, Height, 100.3, kg, 03/04/20 6:18:00 EDT, Dry Weight Start Date: 06/15/21 Status: OrderedPen [place], 31 G x 5 mm BD Ultra Fine III See Instructions, # 450 each, Refills 4, Tot. Refills 4, Maintenance, use to inject insulin 5 times a day for Type 1 Diabetes Mellitus, E 10.9, 90 days, 06/15/21 15:11:00 EST, Compound, 180, cm, 12/19/20 14:48:00 EDT, Height, 100.3, kg, 03/04/20 6:18:... Start Date: 06/15/21 Stop Date: 11/12/21 Status: OrderedPROAIR HFA 108 (90 Base) MCG/ACT [...]
--- OUTSIDE RECORDS SUMMARY | 2022-04-03 15:40 | XMS_ITS | Continuity of Care Document ---
:1960 Author Organization [facility] Address [address] [place] [address]- Care Team Providers Name Role Phone Fredi COLEMAN MD, Freddy Stephenson Primary Care Physician Encounter [facility] [place] Date(s): 12/21/21 - 01/20/22 [facility] [address] [place] [address] Attending Physician: Moris Kelly Admitting Physician: AdmtrMoris Referring Physician: Admtr, Ar8 Allergies, Adverse Reactions, Alerts No Known Allergies Immunizations Not Given Vaccine Date Status Refusal Reason pneumococcal 23-valent vaccine 05/31/18 Not Given P atient Refuses Medications Alcohol Pads See Instructions, # 200 each, Refills 5, Tot. Refills 5, Maintenance, use as directed for Type 1 Diabetes Mellitus, 09/09/21 9:45:00 EDT, Compound, 180, cm, 09/09/21 9:14:00 EDT, Height, 100.3, kg, 03/04/20 6:18:00 EDT, Dry Weight Start Date: 09/09/21 Stop Date: 03/08/22 Status: OrderedALPRAZOLAM 1 MG TABS ALPRAZOLAM 1 [...] Refills 11, Maintenance, change every 14 days, 09/09/21 9:46:00 EDT, Supply, 180, cm, 09/09/21 9:14:00 EDT, Height, 100.3, kg, 03/04/20 6:18:00 EDT, Dry Weight Start Date: 09/09/21 Status: OrderedGABAPENTIN 300 MG CAPS GABAPENTIN 300 [...] units/d, # 18 each, 4 Refills, Maintenance, 09/10/21 9:33:00 EDT, [facility], 6 pens per month, 180, cm,09/09/21 9:14:00 EDT, Height, 100.3, kg, 03/04/20... Start Date: 09/10/21 Status: OrderedMethadone = 50 mg, By Mouth, Daily, [facility], 0 Refills, Maintenance, 05/30/18 17:15:33 EST Start Date: 05/30/18 Status: OrderedOneTouch Verio Test Strips See Instructions, # 450 each, Refills 4, Tot. Refills 4, Maintenance, Use to test blood glucose up to 5 times a day, E10.65, 09/09/21 9:46:00 EDT, Compound, 180, cm, 09/09/21 9:14:00 EDT, Height, 100.3, kg, 03/04/20 6:18:00 EDT, Dry Weight Start Date: 09/09/21 Status: OrderedPen [place], 31 G x 5 mm BD Ultra Fine III See Instructions, # 450 each, Refills 4, Tot. Refills 4, Maintenance, use to inject insulin 5 times a day for Type 1 Diabetes Mellitus, E 10.9, 90 days, 09/09/21 9:45:00 EDT, Compound, 180, cm, 09/09/21 9:14:00 EDT, Height, 100.3, kg, 03/04/20 6:18:00... Start Date: 09/09/21 Stop Date: 02/06/22 Status: OrderedPROAIR HFA 108 (90 Base) MCG/ACT [...] days E10.9,# 12 each, 4 Refills, Maintenance, 09/09/21 9:45:00 EDT, [id number], 4 pens permonth, 180, cm, 09/09/21 9:14:00 EDT, Height, 100... 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
--- OUTSIDE RECORDS SUMMARY | 2022-04-03 15:40 | XMS_ITS | Continuity of Care Document ---
:1960 Author Organization [facility] Address [address] [place] [address]- Care Team Providers Name Role Phone Freddy Rai III, MD Primary Care Physician [place] [facility] [place]s): 09/09/21 - 12/04/[address] [address] Attending Physician: Val Cano MD Admitting Physician: Val Cano MD Referring Physician: Freddy Rai III, MD Allergies, Adverse Reactions, Alerts No Known Allergies [...] each, 4 Refills, Maintenance, 09/10/21 9:33:00 EDT, [facility], 6 pens per month, 180, cm,09/09/21 9:14:00 EDT, Height, 100.3, kg, 03/04/20... Start Date: 09/10/21 Status: OrderedMethadone = 50 mg, By Mouth, Daily, [facility], 0 Refills, Maintenance, 05/30/18 17:15:33 EST Start Date: 05/30/18 Status: OrderedOneTouch Verio Test Strips See Instructions, # 450 each, Refills 4, Tot. Refills 4, Maintenance, Use to test blood glucose up to 5 times a day, E10.65, 09/09/21 9:46:00 EDT, Compound, 180, cm, 09/09/21 9:14:00 EDT, Height, 100.3, kg, 03/04/20 6:18:00 EDT, Dry Weight Start Date: 09/09/21 Status: OrderedPen [place], 31 G x 5 mm BD Ultra [...] each, 4 Refills, Maintenance, 09/09/21 9:45:00 EDT, [facility]-17[address], 4 pens permonth, 180, cm, 09/09/21 9:14:00 [...]
--- OUTSIDE RECORDS SUMMARY | 2022-04-03 15:40 | XMS_ITS | Continuity of Care Document ---
:1960 Author Organization [facility] Address [address] [place] [address]- Care Team Providers Name Role Phone Freddy Rai III, MD Primary Care Physician [place] [facility]/02/[place] - 09/28/[address] [address]- [facility] Attending Physician: Val Cano MD Admitting Physician: Val Cano MD Referring Physician: Freddy Rai III, MD Allergies, Adverse Reactions, Alerts Substance Reaction [...] subcutaneous injection See Instructions, 100-149: 6 units, 567647: 8 units, 200-249: 10 units, 250-299: 12 [...] 09/07/18 9:28:27 EDT, Route to Pharmacy Electronically, [id number], [facility]/pharmacy #[id number] Start Date: 09/07/18 Stop Date: 09/02/19 Status: OrderedMethadone = 50 mg, By Mouth, Daily, [facility], 0 Refills, Maintenance, 05/30/18 17:15:33 EST Start Date: 05/30/18 Status: OrderedOneTouch Verio Test Strips See Instructions, # 150 each, Refills 6, Tot. Refills 6, Maintenance, Use to test blood glucose up to 5 times a day, E10.65, 12/22/18 13:43:03 EDT, Compound Start Date: 12/22/18 Status: OrderedOneTouch Verio Test Strips See Instructions, # 200 each, Refills 5, Tot. Refills 5, Maintenance, to test blood glucose 5 times a day for Dx E 10.9, 07/16/16 16:18:18, Compound Start Date: 07/16/16 Status: OrderedPen [place], 31 G x 5 mm BD Ultra [...]
--- OUTSIDE RECORDS SUMMARY | 2022-04-03 15:40 | XMS_ITS | Continuity of Care Document ---
:1960 Author Organization [facility] Address [address] [place] [address]- Care Team Providers Name Role Phone Freddy Rai III, MD Primary Care Physician En[place] [facility] [place] Date(s): 10/05/19 - 11/07/[address] [address]- [facility] Attending Physician: Jerome ARANDA Ibitorviraj Referring Physician: Freddy Rai III, MD Allergies, [...] subcutaneous injection See Instructions, 100-149: 6 units, [id number]: 8 units, 200-249: 10 units, 250-299: 12 [...] 09/07/18 9:28:27 EDT, Route to Pharmacy Electronically, [id number], [facility]/pharmacy #[id number] Start Date: 09/07/18 Stop Date: 09/02/19 Status: OrderedMethadone = 50 mg, By Mouth, Daily, [facility], 0 Refills, Maintenance, 05/30/18 17:15:33 EST [...] 16:18:18, Compound Start Date: 07/16/16 Status: OrderedPen [place], 31 G x 5 mm BD Ultra [...]
--- OUTSIDE RECORDS SUMMARY | 2022-04-03 15:40 | XMS_ITS | Continuity of Care Document ---
:1960 Author Organization [facility] Address [address] [place] [address]- Care Team Providers Name Role Phone Freddy Rai III, MD Primary Care Physician [place] [facility] [place] Date(s): 08/01/19 - 10/03/19 [facility] [address] [place] [address]- [facility] Attending Physician: Sanrda Meza MD Admitting Physician: Sandra Meza MD Referring Physician: Freddy Rai III, MD [...] subcutaneous injection See Instructions, 100-149: 6 units, 272912: 8 units, 200-249: 10 units, 250-299: 12 [...] 09/07/18 9:28:27 EDT, Route to Pharmacy Electronically, [id number], [facility]/pharmacy #[id number] Start Date: 09/07/18 Stop Date: 09/02/19 Status: OrderedMethadone = 50 mg, By Mouth, Daily, [facility], 0 Refills, Maintenance, 05/30/18 17:15:33 EST Start [...] 16:18:18, Compound Start Date: 07/16/16 Status: OrderedPen [place], 31 G x 5 mm BD Ultra [...]
--- OUTSIDE RECORDS SUMMARY | 2022-04-03 15:40 | XMS_ITS | Continuity of Care Document ---
:1960 Author Organization [facility] Address [address] [place] [address]- Care Team Providers Name Role Phone Fredi COLEMAN MD, Freddy Stephenson Primary Care Phys[id number] Date(s[facility] 11/23/19 - 12/23/[address] [address]- [facility] Attending Physician: Moris Kelly Admitting Physician: Moris Kelly Referring Physician: AdmtrMoris Allergies, Adverse Reactions, Alerts Substance Reaction Severity [...] subcutaneous injection See Instructions, 100-149: 6 units, [id number]: 8 units, 200-249: 10 units, 250-299: 12 [...] 09/07/18 9:28:27 EDT, Route to Pharmacy Electronically, [id number], [facility]/pharmacy #[id number] Start Date: 09/07/18 Stop Date: 09/02/19 Status: OrderedMethadone = 50 mg, By Mouth, Daily, [facility], 0 Refills, Maintenance, 05/30/18 17:15:33 EST [...] 16:18:18, Compound Start Date: 07/16/16 Status: OrderedPen [place], 31 G x 5 mm BD Ultra [...]
--- OUTSIDE RECORDS SUMMARY | 2022-04-03 15:40 | XMS_ITS | Continuity of Care Document ---
:1960 Author Organization [facility] Address [address] [place] [address]- Care Team Providers Name Role Phone Freddy Rai III, MD Primary Care Physician [place] [facility] [place] Date(s[place] 06/03/20 - 07/03/[address] [address]- Attending Physician: Moris Kelly Admitting Physician: AdmtrMoris Referring Physician: Admtr, Moris Allergies, Adverse Reactions, Alerts Substance Reaction Severity [...] each, 4 Refills, Maintenance, 03/10/20 16:09:00 EDT, [facility]/pharmacy #[id number], 6 pens per month, 180, cm, 03/04/20 6:18:00 EDT, Height, 100.3, kg, 03/04/20 6:18:00 EDT... Start Date: 03/10/20 Status: OrderedMethadone = 50 mg, By Mouth, Daily, [facility], 0 Refills, Maintenance, 05/30/18 17:15:33 EST Start Date: 05/30/18 Status: OrderedOneTouch Verio Test Strips See Instructions, # 450 each, Refills 4, Tot. Refills 4, Maintenance, Use to test blood glucose up to 5 times a day, E10.65, 03/10/20 16:10:00 EDT, Compound, 180, cm, 03/04/20 6:18:00 EDT, Height, 100.3, kg, 03/04/20 6:18:00 EDT, Dry Weight Start Date: 03/10/20 Status: OrderedPen [place], 31 G x 5 mm BD Ultra [...] each, 4 Refills, Maintenance, 03/10/20 16:05:00 EDT, [facility]/pharmacy #[id number], 5 pens per month, 180, cm, [...]
--- OUTSIDE RECORDS SUMMARY | 2022-04-03 15:40 | XMS_ITS | Continuity of Care Document ---
:1960 Author Organization [facility] Address [address] [place] [address]- Care Team Providers Name Role Phone Freddy Rai III, MD Primary Care Physician En[place] [facility] [place] Date(s): 08/01/19 - 10/03/19 [facility] [address] [place] [address]- [facility] Attending Physician: Dinah Arreola MD Admitting Physician: Dinah Arreola MD Referring Physician: Freddy Rai III, MD [...] subcutaneous injection See Instructions, 100-149: 6 units, [id number]: 8 units, 200-249: 10 units, 250-299: 12 [...] 09/07/18 9:28:27 EDT, Route to Pharmacy Electronically, [id number], [facility]/pharmacy #[id number] Start Date: 09/07/18 Stop Date: 09/02/19 Status: OrderedMethadone = 50 mg, By Mouth, Daily, [facility], 0 Refills, Maintenance, 05/30/18 17:15:33 EST [...] 16:18:18, Compound Start Date: 07/16/16 Status: OrderedPen [place], 31 G x 5 mm BD Ultra [...]
--- OUTSIDE RECORDS SUMMARY | 2022-04-03 15:40 | XMS_ITS | Continuity of Care Document ---
:1960 Author Organization [facility] Address [address] [place] [address]- Care Team Providers Name Role Phone Fredi COLEMAN MD, Freddy Stephenson Primary Care Physician [place] [facility] [place] 02/01/20 [facility] [address] [place] [address]- [facility] Allergies, Adverse Reactions, Alerts Substance Reaction Severity [...] subcutaneous injection See Instructions, 100-149: 6 units, 280845: 8 units, 200-249: 10 units, 250-299: 12 [...] 09/07/18 9:28:27 EDT, Route to Pharmacy Electronically, [id number], [facility]/pharmacy #[id number] Start Date: 09/07/18 Stop Date: 09/02/19 Status: OrderedMethadone = 50 mg, By Mouth, Daily, [facility], 0 Refills, Maintenance, 05/30/18 17:15:33 EST Start [...] 16:18:18, Compound Start Date: 07/16/16 Status: OrderedPen [place], 31 G x 5 mm BD Ultra [...]
--- OUTSIDE RECORDS SUMMARY | 2022-04-03 15:40 | XMS_ITS | Continuity of Care Document ---
:1960 Author Organization [facility] Address [address] [place] [address]- Care Team Providers Name Role Phone Freddy Rai III, MD Primary Care Physician [place] [facility] [place] - 12/06/[address] [address]- [facility] Attending Physician: Val Cano MD Referring Physician: Freddy [...] subcutaneous injection See Instructions, 100-149: 6 units, [id number]: 8 units, 200-249: 10 units, 250-299: 12 [...] 09/07/18 9:28:27 EDT, Route to Pharmacy Electronically, [id number], [facility]/pharmacy #[id number] Start Date: 09/07/18 Stop Date: 09/02/19 Status: OrderedMethadone = 50 mg, By Mouth, Daily, [facility], 0 Refills, Maintenance, 05/30/18 17:15:33 EST [...] 16:18:18, Compound Start Date: 07/16/16 Status: OrderedPen [place], 31 G x 5 mm BD Ultra [...]
--- OUTSIDE RECORDS SUMMARY | 2022-04-03 15:40 | XMS_ITS | Continuity of Care Document ---
:1960 Author Organization [facility] Address [address] [place] [address]- Care Team Providers Name Role Phone Freddy Rai III, MD Primary Care Physician En[place] [facility] [place] Date(s): 11/04/21 - 12/04/[address] [address]- Attending Physician: Moris Kelly Admitting Physician: AdmtrMoris Referring Physician: Admtr, ArSajan Allergies, Adverse Reactions, Alerts No Known Allergies [...] each, 4 Refills, Maintenance, 09/10/21 9:33:00 EDT, [facility], 6 pens per month, 180, cm,09/09/21 9:14:00 EDT, Height, 100.3, kg, 03/04/20... Start Date: 09/10/21 Status: OrderedMethadone = 50 mg, By Mouth, Daily, [facility], 0 Refills, Maintenance, 05/30/18 17:15:33 EST Start Date: 05/30/18 Status: OrderedOneTouch Verio Test Strips See Instructions, # 450 each, Refills 4, Tot. Refills 4, Maintenance, Use to test blood glucose up to 5 times a day, E10.65, 09/09/21 9:46:00 EDT, Compound, 180, cm, 09/09/21 9:14:00 EDT, Height, 100.3, kg, 03/04/20 6:18:00 EDT, Dry Weight Start Date: 09/09/21 Status: OrderedPen [place], 31 G x 5 mm BD Ultra [...] each, 4 Refills, Maintenance, 09/09/21 9:45:00 EDT, [facility]-[address], 4 pens permonth, 180, cm, 09/09/21 9:14:00 [...]
--- OUTSIDE RECORDS SUMMARY | 2022-04-03 15:40 | XMS_ITS | Continuity of Care Document ---
:1960 Author Organization [facility] Address [address] [place] [address]- Care Team Providers Name Role Phone Fredi COLEMAN MD, Freddy Stephenson Primary Care Physician En[place] [facility] [place] Date(s): 09/10/21 - 10/10/21 [facility] [address] [place] [id number] Allergies, Adverse Reactions, Alerts No Known Allergies [...] each, 4 Refills, Maintenance, 09/10/21 9:33:00 EDT, [facility], 6 pens per month, 180, cm,09/09/21 9:14:00 EDT, Height, 100.3, kg, 03/04/20... Start Date: 09/10/21 Status: OrderedMethadone = 50 mg, By Mouth, Daily, [facility], 0 Refills, Maintenance, 05/30/18 17:15:33 EST Start Date: 05/30/18 Status: OrderedOneTouch Verio Test Strips See Instructions, # 450 each, Refills 4, Tot. Refills 4, Maintenance, Use to test blood glucose up to 5 times a day, E10.65, 09/09/21 9:46:00 EDT, Compound, 180, cm, 09/09/21 9:14:00 EDT, Height, 100.3, kg, 03/04/20 6:18:00 EDT, Dry Weight Start Date: 09/09/21 Status: OrderedPen [place], 31 G x 5 mm BD Ultra [...] Refills, Maintenance, 09/09/21 9:45:00 EDT, [facility]-[address], 4 pens permonth, 180, cm, 09/09/21 9:14:00 [...]
--- OUTSIDE RECORDS SUMMARY | 2022-04-03 15:40 | XMS_ITS | Continuity of Care Document ---
:1960 Author Organization [facility] Address [address] [place] [address]- Care Team Providers Name Role Phone Fredi COLEMAN MD, Freddy Stephenson Primary Care Physician Encounter [facility] Date(s): 06/02/20 - 07/02/[address] [address] Attending Physician: Linn WILLS, Bing Gunter Admitting Physician: Linn WILLS, Bing Gunter Referring Physician: Linn WILLS, Bing Gunter Allergies, Adverse Reactions, Alerts Substance Reaction Severity [...] each, 4 Refills, Maintenance, 03/10/20 16:09:00 EDT, [facility]/pharmacy #[id number], 6 pens per month, 180, cm, 03/04/20 6:18:00 EDT, Height, 100.3, kg, 03/04/20 6:18:00 EDT... Start Date: 03/10/20 Status: OrderedMethadone = 50 mg, By Mouth, Daily, [facility], 0 Refills, Maintenance, 05/30/18 17:15:33 EST Start Date: 05/30/18 Status: OrderedOneTouch Verio Test Strips See Instructions, # 450 each, Refills 4, Tot. Refills 4, Maintenance, Use to test blood glucose up to 5 times a day, E10.65, 03/10/20 16:10:00 EDT, Compound, 180, cm, 03/04/20 6:18:00 EDT, Height, 100.3, kg, 03/04/20 6:18:00 EDT, Dry Weight Start Date: 03/10/20 Status: OrderedPen [place], 31 G x 5 mm BD Ultra [...] each, 4 Refills, Maintenance, 03/10/20 16:05:00 EDT, [facility]/pharmacy #[id number], 5 pens per month, 180, cm, [...]
--- OUTSIDE RECORDS SUMMARY | 2022-04-03 15:40 | XMS_ITS | Continuity of Care Document ---
:1960 Author Organization [facility] Address [address] [place] [address]- Care Team Providers Name Role Phone Freddy Rai III, MD Primary Care Physician Encounter [facility] R [id number] Date(s): 02/04/20 - 03/05/[address] [address]- [facility] Attending Physician: Moris Kelly Admitting Physician: AdmtrMoris Referring Physician: AdmtrMoris Allergies, Adverse Reactions, Alerts [...] subcutaneous injection See Instructions, 100-149: 6 units, 636016: 8 units, 200-249: 10 units, 250-299: 12 [...] 09/07/18 9:28:27 EDT, Route to Pharmacy Electronically, [id number], [facility]/pharmacy #[id number] Start Date: 09/07/18 Stop Date: 09/02/19 Status: OrderedMethadone = 50 mg, By Mouth, Daily, [facility], 0 Refills, Maintenance, 05/30/18 17:15:33 [...] 16:18:18, Compound Start Date: 07/16/16 Status: OrderedPen [place], 31 G x 5 mm BD Ultra [...]
--- OUTSIDE RECORDS SUMMARY | 2022-04-03 15:40 | XMS_ITS | Continuity of Care Document ---
:1960 Author Organization [facility] Address [address] [place] [address]- Care Team Providers Name Role Phone Freddy Rai III, MD Primary Care Physician Encounter [facility] Date(s): 08/27/19 - 11/07/[address] [address]- [facility] Attending Physician: Val Cano MD Admitting Physician: [...] subcutaneous injection See Instructions, 100-149: 6 units, [id number]: 8 units, 200-249: 10 units, 250-299: 12 [...] 09/07/18 9:28:27 EDT, Route to Pharmacy Electronically, [id number], [facility]/pharmacy #[id number] Start Date: 09/07/18 Stop Date: 09/02/19 Status: OrderedMethadone = 50 mg, By Mouth, Daily, [facility], 0 Refills, Maintenance, 05/30/18 17:15:33 EST Start [...] 16:18:18, Compound Start Date: 07/16/16 Status: OrderedPen [place], 31 G x 5 mm BD Ultra [...]
--- OUTSIDE RECORDS SUMMARY | 2022-04-03 15:40 | XMS_ITS | Continuity of Care Document ---
:1960 Author Organization [facility] Address [address] [place] [address]- Care Team Providers Name Role Phone Fredi COLEMAN MD, Freddy Stephenson Primary Care Physician Encounter [facility] Date(s): 03/10/20 - 04/09/20 [facility] [address] [place] [address]- [facility] Attending Physician: Admhardeep, Moris Admitting Physician: AdmtrMoris Referring Physician: Admtr, Ar8 [...] each, 4 Refills, Maintenance, 03/10/20 16:09:00 EDT, [facility]/pharmacy #[id number], 6 pens per month, 180, cm, 03/04/20 6:18:00 EDT, Height, 100.3, kg, 03/04/20 6:18:00 EDT... Start Date: 03/10/20 Status: OrderedMethadone = 50 mg, By Mouth, Daily, [facility], 0 Refills, Maintenance, 05/30/18 17:15:33 EST Start Date: 05/30/18 Status: OrderedOneTouch Verio Test Strips See Instructions, # 450 each, Refills 4, Tot. Refills 4, Maintenance, Use to test blood glucose up to 5 times a day, E10.65, 03/10/20 16:10:00 EDT, Compound, 180, cm, 03/04/20 6:18:00 EDT, Height, 100.3, kg, 03/04/20 6:18:00 EDT, Dry Weight Start Date: 03/10/20 Status: OrderedPen [place], 31 G x 5 mm BD Ultra [...] each, 4 Refills, Maintenance, 03/10/20 16:05:00 EDT, [facility]/pharmacy #[id number], 5 pens per month, 180, cm, [...]
--- OUTSIDE RECORDS SUMMARY | 2022-04-03 15:40 | XMS_ITS | Continuity of Care Document ---
:1960 Author Organization [facility] Address [address] [place] [address]- Care Team Providers Name Role Phone Freddy Rai III, MD Primary Care Physician [id number] Date(s): 11/09/19 - 12/23/[address] [address]- [facility] Attending Physician: Val Cano MD Admitting [...] subcutaneous injection See Instructions, 100-149: 6 units, 728155: 8 units, 200-249: 10 units, 250-299: 12 [...] 09/07/18 9:28:27 EDT, Route to Pharmacy Electronically, [id number], [facility]/pharmacy #[id number] Start Date: 09/07/18 Stop Date: 09/02/19 Status: OrderedMethadone = 50 mg, By Mouth, Daily, [facility], 0 Refills, Maintenance, 05/30/18 17:15:33 EST Start [...] 16:18:18, Compound Start Date: 07/16/16 Status: OrderedPen [place], 31 G x 5 mm BD Ultra [...]
--- OUTSIDE RECORDS SUMMARY | 2022-04-03 15:40 | XMS_ITS | Continuity of Care Document ---
:1960 Author Organization [facility] Address [address] [place] [address]- Care Team Providers Name Role Phone Fredi COLEMAN MD, Freddy Stephenson Primary Care Physician Encounter [facility] Date(s): 09/03/19 - 09/13/19 [facility] [address] [place] [address]- [facility] Attending Physician: Moris Kelly Admitting Physician: [...] subcutaneous injection See Instructions, 100-149: 6 units, 196384: 8 units, 200-249: 10 units, 250-299: 12 [...] 09/07/18 9:28:27 EDT, Route to Pharmacy Electronically, [id number], [facility]/pharmacy #[id number] Start Date: 09/07/18 Stop Date: 09/02/19 Status: OrderedMethadone = 50 mg, By Mouth, Daily, [facility], 0 Refills, Maintenance, 05/30/18 17:15:33 [...] 16:18:18, Compound Start Date: 07/16/16 Status: OrderedPen [place], 31 G x 5 mm BD Ultra [...]
--- OUTSIDE RECORDS SUMMARY | 2022-04-03 15:40 | XMS_ITS | Continuity of Care Document ---
:1960 Author Organization [facility] Address [address] [place] [address]- Care Team Providers Name Role Phone Fredi COLEMAN MD, Freddy Stephenson Primary Care Physician Encounter [facility] Date(s): 05/26/20 - 06/25/20 [facility] [address] [place] [address] Allergies, Adverse Reactions, Alerts Substance Reaction [...] 4 Refills, Maintenance, 03/10/20 16:09:00 EDT, [facility]/pharmacy #[id number], 6 pens per month, 180, cm, 03/04/20 6:18:00 EDT, Height, 100.3, kg, 03/04/20 6:18:00 EDT... Start Date: 03/10/20 Status: OrderedMethadone = 50 mg, By Mouth, Daily, [facility], 0 Refills, Maintenance, 05/30/18 17:15:33 EST Start Date: 05/30/18 Status: OrderedOneTouch Verio Test Strips See Instructions, # 450 each, Refills 4, Tot. Refills 4, Maintenance, Use to test blood glucose up to 5 times a day, E10.65, 03/10/20 16:10:00 EDT, Compound, 180, cm, 03/04/20 6:18:00 EDT, Height, 100.3, kg, 03/04/20 6:18:00 EDT, Dry Weight Start Date: 03/10/20 Status: OrderedPen [place], 31 G x 5 mm BD Ultra [...] each, 4 Refills, Maintenance, 03/10/20 16:05:00 EDT, [facility]/pharmacy #[id number], 5 pens per month, 180, cm, [...]
--- OUTSIDE RECORDS SUMMARY | 2022-04-03 15:40 | XMS_ITS | Continuity of Care Document ---
:1960 Author Organization [facility] Address [address] [place] [address]- Care Team Providers Name Role Phone Freddy Rai III, MD Primary Care Physician [place] [facility] [place] [id number] Date(s): 03/17/20 - 04/16/[address] [address]- [facility] Attending Physician: Moris Kelly Admitting Physician: AdmtrMoris [...] Maintenance, 03/10/20 16:09:00 EDT, [facility]/pharmacy #[id number], 6 pens per month, 180, cm, 03/04/20 6:18:00 EDT, Height, 100.3, kg, 03/04/20 6:18:00 EDT... Start Date: 03/10/20 Status: OrderedMethadone = 50 mg, By Mouth, Daily, [facility], 0 Refills, Maintenance, 05/30/18 17:15:33 EST Start Date: 05/30/18 Status: OrderedOneTouch Verio Test Strips See Instructions, # 450 each, Refills 4, Tot. Refills 4, Maintenance, Use to test blood glucose up to 5 times a day, E10.65, 03/10/20 16:10:00 EDT, Compound, 180, cm, 03/04/20 6:18:00 EDT, Height, 100.3, kg, 03/04/20 6:18:00 EDT, Dry Weight Start Date: 03/10/20 Status: OrderedPen [place], 31 G x 5 mm BD Ultra [...] 4 Refills, Maintenance, 03/10/20 16:05:00 EDT, [facility]/pharmacy #[id number], 5 pens per month, 180, [...]
--- OUTSIDE RECORDS SUMMARY | 2022-04-03 15:40 | XMS_ITS | Continuity of Care Document ---
:1960 Author Organization [facility] Address [address] [place] [address]- Care Team Providers Name Role Phone Fredi COLEMAN MD, Freddy Stephenson Primary Care Physician Encounter [facility] Date(s): 02/13/20 - 03/14/20 [facility] [address] [place] [address]- [facility] Allergies, Adverse Reactions, Alerts Substance Reaction Severity [...] each, 4 Refills, Maintenance, 03/10/20 16:09:00 EDT, [facility]/pharmacy #[id number], 6 pens per month, 180, cm, 03/04/20 [...] Dry Weight Start Date: 03/10/20 Status: OrderedPen [place], 31 G x 5 mm BD Ultra [...] each, 4 Refills, Maintenance, 03/10/20 16:05:00 EDT, [facility]/pharmacy #[id number], 5 pens per month, 180, cm, [...]
--- OUTSIDE RECORDS SUMMARY | 2022-04-03 15:41 | XMS_ITS | Continuity of Care Document ---
:1960 Author Organization [facility] Address [address] [place] [address]- Care Team Providers Name Role Phone Fredi COLEMAN MD, Freddy Stephenson Primary Care Physician [facility] [facility] Date(s): 01/01/21 - 01/31/21 [facility] [address] [place] [address]- Allergies, Adverse Reactions, Alerts Substance Reaction Severity [...] each, 4 Refills, Maintenance, 03/10/20 16:09:00 EDT, [facility]/pharmacy #[id number], 6 pens per month, 180, cm, 03/04/20 6:18:00 EDT, Height, 100.3, kg, 03/04/20 6:18:00 EDT... Start Date: 03/10/20 Status: OrderedMethadone = 50 mg, By Mouth, Daily, [facility], 0 Refills, Maintenance, 05/30/18 17:15:33 EST Start Date: 05/30/18 Status: OrderedOneTouch Verio Test Strips See Instructions, # 450 each, Refills 4, Tot. Refills 4, Maintenance, Use to test blood glucose up to 5 times a day, E10.65, 03/10/20 16:10:00 EDT, Compound, 180, cm, 03/04/20 6:18:00 EDT, Height, 100.3, kg, 03/04/20 6:18:00 EDT, Dry Weight Start Date: 03/10/20 Status: OrderedPen [place], 31 G x 5 mm BD Ultra [...]
--- NOTE | 2022-04-03 15:57 | ED.GENADULT ---
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 (9.4-12.4) fL Immature Gran % (Auto) (0.0-0.4) % Neut % (Auto) (45-73) % Lymph % (Auto) (20-40) % [place] % (Auto) (2-11) % Eos % (Auto) (0-4) % Baso % (Auto) (0-2) % Lymph # (Auto) (1.2-4.9) X10*3/uL [place] # (Auto) (0.1-1.2) X10*3/uL Eos # (Auto) (0.0-0.4) X10*3/uL Baso # (Auto) (0.0-0.2) X10*3/uL Abs Immat Gran (auto) (0.00-0.03) X10*3/uL Absolute Neuts (auto) (2.0-8.3) x10*3/uL Absolute Nucleated RBC (0.0-0.012) X10*3/uL Nucleated RBC % (auto) (0.0-0.2) /100WBC VBG pH (7.32-7.43) VBG pCO2 mmHg VBG pO2 mmHg VBG HCO3 (22-26) mmol/L VBG O2 Saturation % VBG Base Excess mmol/L Sodium 139 139 (135-145) mmol/L Potassium 5.4 H 4.6 (3.3-5.1) mmol/L Chloride 106 110 H (96-108) mmol/L Carbon Dioxide 25 23 (22-29) mmol/L Anion Gap 13 11 L (12-20) BUN 31 H 27 H (9-16) mg/dL Creatinine 1.24 0.99 (0.5-1.4) mg/dL Estim Creat Clear Calc 74.0 92.7 Estimated GFR 59 > 60 POC Glucose 202 H (60-115) mg/dL Random Glucose 296 H 187 H D (60-115) mg/dL Calcium 9.2 8.1 L D (8.4-10.2) mg/dL Total Bilirubin (0.0-1.0) mg/dL Direct Bilirubin (0.0-0.5) mg/dL AST (5-37) U/L ALT (0-40) U/L Alkaline Phosphatase (39-117) U/L Troponin I High Sens (<3.5-35.0) ng/L Total Protein (6.5-8.0) g/dL Albumin (3.5-5.0) g/dL Lipase (8-78) U/L Urine Color Urine Appearance Urine pH (5.0-9.0) Ur Specific [place] (1.005-1.025) Urine Protein (Neg-Trace) mg/dL Urine Glucose (UA) (Negative) mg/dL Urine Ketones (Negative) mg/dL Urine Blood (Negative) Urine Nitrite (Negative) Ur Leukocyte Esterase (Negative) Urine RBC (0-2) /HPF Urine WBC (0-5) /HPF Ur Squamous Epith Cells (0-2) /HPF Urine Bacteria (None Seen) Hyaline Casts (0-2) /LPF Acetone, Qual (Negative) <OSMIN Davison - Last Filed: 04/03/22 23:31> Lab Results 04/03/22 04/03/22 04/03/22 Range/Units 16:32 16:32 16:32 WBC 8.3 (4.8-10.8) X10*3/uL RBC 3.92 L (4.60-5.80) X10*6/uL Hgb 10.9 L (14.0-18.0) g/dl Hct 36.5 L (42.0-52.0) % MCV 93.1 (80.0-98.0) fL MCH 27.8 (27.0-33.0) pg MCHC 29.9 L (31.0-36.0) g/dl RDW 13.4 (11.0-16.0) % Plt Count 280 (160-400) X10*3/uL MPV 11.9 (9.4-12.4) fL Immature Gran % (Auto) 0.5 H (0.0-0.4) % Neut % (Auto) 46.9 (45-73) % Lymph % (Auto) 39.0 (20-40) % [place] % (Auto) 9.0 (2-11) % Eos % (Auto) 3.6 (0-4) % Baso % (Auto) 1.0 (0-2) % Lymph # (Auto) 3.2 (1.2-4.9) X10*3/uL [place] # (Auto) 0.8 (0.1-1.2) X10*3/uL Eos # (Auto) 0.3 (0.0-0.4) X10*3/uL Baso # (Auto) 0.1 (0.0-0.2) X10*3/uL Abs Immat Gran (auto) 0.04 H (0.00-0.03) X10*3/uL Absolute Neuts (auto) 3.9 (2.0-8.3) x10*3/uL Absolute Nucleated RBC 0.000 (0.0-0.012) X10*3/uL Nucleated RBC % (auto) 0.0 (0.0-0.2) /100WBC VBG pH (7.32-7.43) VBG pCO2 mmHg VBG pO2 mmHg VBG HCO3 (22-26) mmol/L VBG O2 Saturation % VBG Base Excess mmol/L Sodium 135 (135-145) mmol/L Potassium 6.1 H* D (3.3-5.1) mmol/L Chloride 101 (96-108) mmol/L Carbon Dioxide 27 (22-29) mmol/L Anion Gap 13 (12-20) BUN 32 H (9-16) mg/dL Creatinine 1.45 H (0.5-1.4) mg/dL Estim Creat Clear Calc 63.3 Estimated GFR 49 POC Glucose (60-115) mg/dL Random Glucose 503 H* (60-115) mg/dL Calcium 9.1 (8.4-10.2) mg/dL Total Bilirubin (0.0-1.0) mg/dL Direct Bilirubin (0.0-0.5) mg/dL AST (5-37) U/L ALT (0-40) U/L Alkaline Phosphatase (39-117) U/L Troponin I High Sens < 3.5 (<3.5-35.0) ng/L Total Protein (6.5-8.0) g/dL Albumin (3.5-5.0) g/dL Lipase (8-78) U/L Urine Color Urine Appearance Urine pH (5.0-9.0) Ur Specific [place] (1.005-1.025) Urine Protein (Neg-Trace) mg/dL Urine Glucose (UA) (Negative) mg/dL Urine Ketones (Negative) mg/dL Urine Blood (Negative) Urine Nitrite (Negative) Ur Leukocyte Esterase (Negative) Urine RBC (0-2) /HPF Urine WBC (0-5) /HPF Ur Squamous Epith Cells (0-2) /HPF Urine Bacteria (None Seen) Hyaline Casts (0-2) /LPF Acetone, Qual (Negative) 04/03/22 04/03/22 04/03/22 Range/Units 16:32 16:34 17:36 WBC (4.8-10.8) X10*3/uL RBC (4.60-5.80) X10*6/uL Hgb (14.0-18.0) g/dl Hct (42.0-52.0) % MCV (80.0-98.0) fL MCH (27.0-33.0) pg MCHC (31.0-36.0) g/dl RDW (11.0-16.0) % Plt Count (160-400) X10*3/uL MPV (9.4-12.4) fL Immature Gran % (Auto) (0.0-0.4) % Neut % (Auto) (45-73) % Lymph % (Auto) (20-40) % [place] % (Auto) (2-11) % Eos % (Auto) (0-4) % Baso % (Auto) (0-2) % Lymph # (Auto) (1.2-4.9) X10*3/uL [place] # (Auto) (0.1-1.2) X10*3/uL Eos # (Auto) (0.0-0.4) X10*3/uL Baso # (Auto) (0.0-0.2) X10*3/uL Abs Immat Gran (auto) (0.00-0.03) X10*3/uL Absolute Neuts (auto) (2.0-8.3) x10*3/uL Absolute Nucleated RBC (0.0-0.012) X10*3/uL Nucleated RBC % (auto) (0.0-0.2) /100WBC VBG pH (7.32-7.43) VBG pCO2 mmHg VBG pO2 mmHg VBG HCO3 (22-26) mmol/L VBG O2 Saturation % VBG Base Excess mmol/L Sodium (135-145) mmol/L Potassium (3.3-5.1) mmol/L Chloride (96-108) mmol/L Carbon Dioxide (22-29) mmol/L Anion Gap (12-20) BUN (9-16) mg/dL Creatinine (0.5-1.4) mg/dL Estim Creat Clear Calc Estimated GFR POC Glucose (60-115) mg/dL Random Glucose (60-115) mg/dL Calcium (8.4-10.2) mg/dL Total Bilirubin 0.2 (0.0-1.0) mg/dL Direct Bilirubin < 0.2 (0.0-0.5) mg/dL AST 13 (5-37) U/L ALT 16 (0-40) U/L Alkaline Phosphatase 94 (39-117) U/L Troponin I High Sens (<3.5-35.0) ng/L Total Protein 6.6 (6.5-8.0) g/dL Albumin 3.6 (3.5-5.0) g/dL Lipase 9 (8-78) U/L Urine Color Yellow Urine Appearance Clear Urine pH 6.0 (5.0-9.0) Ur Specific [place] 1.015 (1.005-1.025) Urine Protein 30 (1+) H (Neg-Trace) mg/dL Urine Glucose (UA) >=1000 H (Negative) mg/dL Urine Ketones Negative (Negative) mg/dL Urine Blood Negative (Negative) Urine Nitrite Negative (Negative) Ur Leukocyte Esterase Negative (Negative) Urine RBC 0-2 (0-2) /HPF Urine WBC 0-5 (0-5) /HPF Ur Squamous Epith Cells 0-2 (0-2) /HPF Urine Bacteria None Seen (None Seen) Hyaline Casts 0-2 (0-2) /LPF Acetone, Qual Negative (Negative) 04/03/22 04/03/22 04/03/22 Range/Units 17:39 19:24 20:27 WBC (4.8-10.8) X10*3/uL RBC (4.60-5.80) X10*6/uL Hgb (14.0-18.0) g/dl Hct (42.0-52.0) % MCV (80.0-98.0) fL MCH (27.0-33.0) pg MCHC (31.0-36.0) g/dl RDW (11.0-16.0) % Plt Count (160-400) X10*3/uL MPV (9.4-12.4) fL Immature Gran % (Auto) (0.0-0.4) % Neut % (Auto) (45-73) % Lymph % (Auto) (20-40) % [place] % (Auto) (2-11) % Eos % (Auto) (0-4) % Baso % (Auto) (0-2) % Lymph # (Auto) (1.2-4.9) X10*3/uL [place] # (Auto) (0.1-1.2) X10*3/uL Eos # (Auto) (0.0-0.4) X10*3/uL Baso # (Auto) (0.0-0.2) X10*3/uL Abs Immat Gran (auto) (0.00-0.03) X10*3/uL Absolute Neuts (auto) (2.0-8.3) x10*3/uL Absolute Nucleated RBC (0.0-0.012) X10*3/uL Nucleated RBC % (auto) (0.0-0.2) /100WBC VBG pH 7.31 L (7.32-7.43) VBG pCO2 55 mmHg VBG pO2 44 mmHg VBG HCO3 28 H (22-26) mmol/L VBG O2 Saturation 73.0 % VBG Base Excess 1.3 mmol/L Sodium 136 (135-145) mmol/L Potassium 5.5 H (3.3-5.1) mmol/L Chloride 106 (96-108) mmol/L Carbon Dioxide 25 (22-29) mmol/L Anion Gap 11 L (12-20) BUN 29 H (9-16) mg/dL Creatinine 1.25 (0.5-1.4) mg/dL Estim Creat Clear Calc 73.4 Estimated GFR 59 POC Glucose 353 H* (60-115) mg/dL Random Glucose 393 H* (60-115) mg/dL Calcium 9.1 (8.4-10.2) mg/dL Total Bilirubin (0.0-1.0) mg/dL Direct Bilirubin (0.0-0.5) mg/dL AST (5-37) U/L ALT (0-40) U/L Alkaline Phosphatase (39-117) U/L Troponin I High Sens (<3.5-35.0) ng/L Total Protein (6.5-8.0) g/dL Albumin (3.5-5.0) g/dL Lipase (8-78) U/L Urine Color Urine Appearance Urine pH (5.0-9.0) Ur Specific [place] (1.005-1.025) Urine Protein (Neg-Trace) mg/dL Urine Glucose (UA) (Negative) mg/dL Urine Ketones (Negative) mg/dL Urine Blood (Negative) Urine Nitrite (Negative) Ur Leukocyte Esterase (Negative) Urine RBC (0-2) /HPF Urine WBC (0-5) /HPF Ur Squamous Epith Cells (0-2) /HPF Urine Bacteria (None Seen) Hyaline Casts (0-2) /LPF Acetone, Qual (Negative) 04/03/22 04/04/22 04/04/22 Range/Units 22:52 00:52 02:28 WBC (4.8-10.8) X10*3/uL RBC (4.60-5.80) X10*6/uL Hgb (14.0-18.0) g/dl Hct (42.0-52.0) % MCV (80.0-98.0) fL MCH (27.0-33.0) pg MCHC (31.0-36.0) g/dl RDW (11.0-16.0) % Plt Count (160-400) X10*3/uL MPV (9.4-12.4) fL Immature Gran % (Auto) (0.0-0.4) % Neut % (Auto) (45-73) % Lymph % (Auto) (20-40) % [place] % (Auto) (2-11) % Eos % (Auto) (0-4) % Baso % (Auto) (0-2) % Lymph # (Auto) (1.2-4.9) X10*3/uL [place] # (Auto) (0.1-1.2) X10*3/uL Eos # (Auto) (0.0-0.4) X10*3/uL Baso # (Auto) (0.0-0.2) X10*3/uL Abs Immat Gran (auto) (0.00-0.03) X10*3/uL Absolute Neuts (auto) (2.0-8.3) x10*3/uL Absolute Nucleated RBC (0.0-0.012) X10*3/uL Nucleated RBC % (auto) (0.0-0.2) /100WBC VBG pH (7.32-7.43) VBG pCO2 mmHg VBG pO2 mmHg VBG HCO3 (22-26) mmol/L VBG O2 Saturation % VBG Base Excess mmol/L Sodium 139 139 (135-145) mmol/L Potassium 5.4 H 4.6 (3.3-5.1) mmol/L Chloride 106 110 H (96-108) mmol/L Carbon Dioxide 25 23 (22-29) mmol/L Anion Gap 13 11 L (12-20) BUN 31 H 27 H (9-16) mg/dL Creatinine 1.24 0.99 (0.5-1.4) mg/dL Estim Creat Clear Calc 74.0 92.7 Estimated GFR 59 > 60 POC Glucose 202 H (60-115) mg/dL Random Glucose 296 H 187 H D (60-115) mg/dL Calcium 9.2 8.1 L D (8.4-10.2) mg/dL Total Bilirubin (0.0-1.0) mg/dL Direct Bilirubin (0.0-0.5) mg/dL AST (5-37) U/L ALT (0-40) U/L Alkaline Phosphatase (39-117) U/L Troponin I High Sens (<3.5-35.0) ng/L Total Protein (6.5-8.0) g/dL Albumin (3.5-5.0) g/dL Lipase (8-78) U/L Urine Color Urine Appearance Urine pH (5.0-9.0) Ur Specific [place] (1.005-1.025) Urine Protein (Neg-Trace) mg/dL Urine Glucose (UA) (Negative) mg/dL Urine Ketones (Negative) mg/dL Urine Blood (Negative) Urine Nitrite (Negative) Ur Leukocyte Esterase (Negative) Urine RBC (0-2) /HPF Urine WBC (0-5) /HPF Ur Squamous Epith Cells (0-2) /HPF Urine Bacteria (None Seen) Hyaline Casts (0-2) /LPF Acetone, Qual (Negative) <Sally Govea MD - Last Filed: 04/04/22 03:12> ECG Data Attestation: I personally reviewed and interpreted this ECG as follows: <OSMIN Pineda - Last Filed: 04/03/22 20:03> Interpretation: EKG normal sinus rhythm at a rate of 82. Pr interval 186. QTC 422. No STEMI <OSMIN Pineda - Last Filed: 04/03/22 20:03> Critical Care Time Critical Care Time Critical Care Time: Yes <OSMIN Pineda - Last Filed: 04/03/22 20:03> Total Critical Care Time: 40 <OSMIN Pineda - Last Filed: 04/03/22 20:03> Attestation: I have personally provided critical care time exclusive of time spent on separately billable procedures. Time includes review of lab data, radiology results, discussion with consultants, and monitoring for potential decompensation. Intervention performed as documented. <OSMIN Pineda - Last Filed: 04/03/22 20:03> Discharge Plan Discharge Clinical Impression: Contusion of rib, Acute hyperkalemia, Acute hyperglycemia <OSMIN Pineda - Last Filed: 04/03/22 20:03> Patient Disposition: Home, Self-Care <OSMIN Pineda - Last Filed: 04/03/22 20:03> Instructions: Hyperkalemia (ED), Contusion in Adults (ED), Diabetic Hyperglycemia (ED) <OSMIN Pineda - Last Filed: 04/03/22 20:03> Additional Instructions: Your blood work showed elevation in your potassium, glucose, and renal function. Is very important for you to take her prescribed home medications, especially your insulin/diabetic medications Monitor your glucose closely. Your CAT scans do not show any acute abnormalities or fractures, you likely have contusions of her ribs. You do have an increasing attenuation in her right upper/middle lobe, please have close follow-up with her primary care doctor in regards to this. Your CAT scan of her belly was unremarkable Flexeril as a muscle relaxer, take as needed, this makes you drowsy, do not drive, drink alcohol, or operate machinery while taking. Additionally ketorolac as an anti-inflammatory/pain medication, take with food. You may also take Tylenol and use Lidoderm patches. If symptoms persist or worsen, pain becomes unbearable return to the emergency department. [place] an?lisis de kye mostr? elevaci?n en purcell potasio, glucosa y funci?n renal. Es muy importante que usted lleve janice medicamentos prescritos a casa, especialmente purcell insulina/medicamentos para la diabetes. Controle purcell glucosa de cerca. Janice tomograf?as computarizadas no muestran anomal?as agudas ni fracturas, es probable que tenga contusiones en las costillas. Tiene hany atenuaci?n creciente en purcell l?bulo superior/medio derecho, yael un seguimiento cercano con purcell m?dico de atenci?n primaria con respecto a esto. Purcell tomograf?a computarizada de purcell vientre fue normal Flexeril koki relajante muscular, t?bravo seg?n sea necesario, esto lo adormecer?, no maneje, rimma alcohol ni opere maquinaria mientras lo josefina. Adem?s, ketorolaco koki medicamento antiinflamatorio/analg?sico, t?bravo con alimentos. Tambi?n puede jessica Tylenol y usar parches de Lidoderm. Si los s?ntomas persisten o empeoran, el dolor se vuelve insoportable, regrese al servicio de urgencias. <OSMIN Pineda - Last Filed: 04/03/22 20:03> Prescriptions: New ketorolac 10 mg tablet 10 mg PO TID PRN (Reason: pain) 5 Days Qty: 15 0RF cyclobenzaprine 5 mg tablet 5 mg PO Q8H PRN (Reason: pain (scale score 7-10)) 5 Days Qty: 14 0RF acetaminophen [Tylenol Extra Strength] 500 mg tablet 500 mg PO Q6H PRN (Reason: fever or pain) Qty: 14 0RF lidocaine [Lidoderm] 5 % adhesive patch,medicated 1 patch topical DAILY MDD remove after 12 hours PRN (Reason: pain) Qty: 30 0RF Rx Instructions: leave on most painful area for up to 12 hrs No Action sodium polystyrene sulfonate Powder 15 g PO DAILY 1 Days Qty: 15 0RF cyclobenzaprine 10 mg tablet 10 mg PO TID PRN (Reason: muscle spasm) Qty: 10 0RF <OSMIN Pineda - Last Filed: 04/03/22 20:03> Referrals: Freddy Rai III, MD [Primary Care Provider] - 3 days <OSMIN Pineda - Last Filed: 04/03/22 20:03> Print Language: Faroese <OSMIN Pineda - Last Filed: 04/03/22 20:03>
[2022-04-03 16:44] LABS: MANUAL DIFF FLAG NO
[2022-04-03 16:45] LABS: Basophils Absolute Auto 0.1 X10*3/uL (0.0-0.2); Eosinophils Absolute Auto 0.3 X10*3/uL (0.0-0.4); Eosinophils Percent Auto 3.6 % (0-4); Hematocrit 36.5 % (42.0-52.0); Hemoglobin 10.9 g/dl (14.0-18.0); Imm Gran Abs Auto 0.04 X10*3/uL (0.00-0.03); Imm Gran Pct Auto 0.5 % (0.0-0.4); Lymphocytes Absolute Auto 3.2 X10*3/uL (1.2-4.9); Mean Corpuscular HGB Conc 29.9 g/dl (31.0-36.0); Mean Corpuscular Hemoglobin 27.8 pg (27.0-33.0); Mean Corpuscular Volume 93.1 fL (80.0-98.0); Mean Platelet Volume 11.9 fL (9.4-12.4); Monocytes Absolute Auto 0.8 X10*3/uL (0.1-1.2); Neutrophils Absolute Auto 3.9 x10*3/uL (2.0-8.3); Neutrophils Percent Auto 46.9 % (45-73); Platelet Count 280 X10*3/uL (160-400); Red Blood Count 3.92 X10*6/uL (4.60-5.80); Red Cell Distribution Width 13.4 % (11.0-16.0); White Blood Count 8.3 X10*3/uL (4.8-10.8)
[2022-04-03 16:46] LABS: Appearance Urine Clear; Color Urine Yellow; Glucose Urine UA >=1000 mg/dL (Negative); Leukocyte Esterase Urine Negative (Negative); Nitrite Urine Negative (Negative); Specific Gravity - Urine 1.015 (1.005-1.025); UMIC TRIGGER UACC YES; Urine Blood Negative (Negative); Urine Ketones Negative (Negative); Urine Protein 30 (1+) mg/dL (Neg-Trace)
[2022-04-03 16:49] LABS: Bacteria Urine None Seen (None Seen); Hyaline Casts Urine 0-2 /LPF (0-2); RBC Urine 0-2 /HPF (0-2); Squamous Epithelial Cell Urine 0-2 /HPF (0-2); WBC Urine 0-5 /HPF (0-5)
[2022-04-03 16:59] LABS: Alanine Aminotransferase 16 U/L (0-40); Albumin Level 3.6 g/dL (3.5-5.0); Alkaline Phosphatase 94 U/L (39-117); Aspartate Amino Transferase 13 U/L (5-37); Bilirubin Direct < 0.2 mg/dL (0.0-0.5); Bilirubin Total 0.2 mg/dL (0.0-1.0); Lipase 9 U/L (8-78); Total Protein 6.6 g/dL (6.5-8.0)
[2022-04-03 17:04] LABS: Troponin-I High Sensitivity < 3.5 ng/L (<3.5-35.0)
[2022-04-03] MEDS: Cyclobenzaprine HCl 10 MG TABLET PO (17:13)
[2022-04-03 17:16] LABS: Anion Gap 13 (12-20); Blood Urea Nitrogen 32 mg/dL (9-16); Calcium 9.1 mg/dL (8.4-10.2); Carbon Dioxide 27 mmol/L (22-29); Chloride 101 mmol/L (96-108); Creatinine Clr Calc Pharmacy 63.3; Estimated Glomerular Filt Rate 49; Glucose Random 503 mg/dL (60-115); Potassium 6.1 mmol/L (3.3-5.1); Sodium 135 mmol/L (135-145)
[2022-04-03 17:46] LABS: Venous Blood Gas Refer to POC result
[2022-04-03 17:46] LABS: VBG Base Excess 1.3 mmol/L; VBG HCO3 28 mmol/L (22-26); VBG pCO2 55 mmHg; VBG pH 7.31 (7.32-7.43); VBG pO2 44 mmHg
[2022-04-03 17:51] LABS: Acetone, serum QL Negative (Negative)
[2022-04-03] MEDS: 0.9 % Sodium Chloride 1,000 ML 999 ML IV ×2 (17:57→23:38)
[2022-04-03] MEDS: Calcium Gluconate/NaCl,Iso-Osm 1 GM/50 ML PLAST..BAG IV (18:03)
[2022-04-03] MEDS: Sodium Zirconium Cyclosilicate 10 GM POWD.PACK PO (18:07)
[2022-04-03] MEDS: Insulin Lispro 100 UNIT/ML 3 ML VIAL 10 UNIT SUBCUT (18:13)
[2022-04-03 19:28] LABS: Glucose, Whole Blood 353 mg/dL (60-115)
[2022-04-03] MEDS: Ketorolac Tromethamine 15 MG/ML VIAL IVPUSH (20:12)
[2022-04-03] MEDS: Lidocaine 4 % Patch ADH..PATCH 1 PATCH TRANSDERMA (20:13)
[2022-04-03] MEDS: Insulin Lispro 100 UNIT/ML 3 ML VIAL SUBCUT (20:13)
[2022-04-03 20:55] LABS: Anion Gap 11 (12-20); Blood Urea Nitrogen 29 mg/dL (9-16); Calcium 9.1 mg/dL (8.4-10.2); Carbon Dioxide 25 mmol/L (22-29); Chloride 106 mmol/L (96-108); Creatinine Clr Calc Pharmacy 73.4; Estimated Glomerular Filt Rate 59; Glucose Random 393 mg/dL (60-115); Potassium 5.5 mmol/L (3.3-5.1); Sodium 136 mmol/L (135-145)
[2022-04-03 21:59] VITALS: BP 156/77; PULSE 62; RESP 9; TEMP 36.7; O2SAT 97
[2022-04-03 23:36] LABS: Anion Gap 13 (12-20); Blood Urea Nitrogen 31 mg/dL (9-16); Calcium 9.2 mg/dL (8.4-10.2); Carbon Dioxide 25 mmol/L (22-29); Chloride 106 mmol/L (96-108); Estimated Glomerular Filt Rate 59; Glucose Random 296 mg/dL (60-115); Potassium 5.4 mmol/L (3.3-5.1); Sodium 139 mmol/L (135-145)
[2022-04-04 00:59] LABS: Glucose, Whole Blood 202 mg/dL (60-115)
[2022-04-04] MEDS: 0.9 % Sodium Chloride 2,000 ML 999 ML IV (01:15)
[2022-04-04 03:02] LABS: Anion Gap 11 (12-20); Blood Urea Nitrogen 27 mg/dL (9-16); Calcium 8.1 mg/dL (8.4-10.2); Carbon Dioxide 23 mmol/L (22-29); Chloride 110 mmol/L (96-108); Creatinine Clr Calc Pharmacy 92.7; Estimated Glomerular Filt Rate > 60; Glucose Random 187 mg/dL (60-115); Potassium 4.6 mmol/L (3.3-5.1); Sodium 139 mmol/L (135-145)
== END 2022-04-04 03:41 | disposition home or self-care (01) ==
PROVIDERS: Physician Assistant; Student in an Organized Health Care Education/Training Program; Emergency Provider Emergency Medicine; PCP Internal Medicine
DX: S20.212D Contusion of left front wall of thorax, subsequent encounter (principal); V43.52XD Car driver injured in collision with other type car in traffic accident, subsequent encounter; E87.5 Hyperkalemia; E11.65 Type 2 diabetes mellitus with hyperglycemia; I10 Essential (primary) hypertension; Z79.84 Long term (current) use of oral hypoglycemic drugs
CPT/HCPCS: 36415; 71250; 74176; 80048; 80076; 81001; 82009; 82803; 82947; 83690; 84484; 85025; 93005; 96361; 96365; 96375; 99284; J0610; J1885

== ENCOUNTER 2022-08-12 12:58 | Outpatient (REF) | payer MEDICARE, MEDICAID, SELFPAY ==
[2022-08-12 13:36] LABS: COVID-19 Test Negative (Negative); IDNOW Serial# 55D5AD1C
== END 2022-08-12 12:59 | disposition home or self-care (01) ==
LOC: HO.LAB 12:58
PROVIDERS: Visit Provider Internal Medicine
DX: Z20.822 Contact with and (suspected) exposure to COVID-19 (principal)
CPT/HCPCS: 87635; C9803

== ENCOUNTER 2022-11-16 17:56 | Observation (INO) | payer MEDICARE, MEDICAID, SELFPAY ==
[2022-11-16] VITALS (7 sets, daily range): BP systolic 160–178; BP diastolic 81–93; PULSE 82–101; RESP 16–18; TEMP 36.4–36.7; O2SAT 94–97; BMI 30.5
--- NOTE | ~2022-11-16 | CT_ITS ---
EXAMINATION: CT HEAD WITHOUT CONTRAST CLINICAL INFORMATION: Multiple falls. COMPARISON: None. TECHNIQUE: Contiguous axial imaging was performed from the skull base to vertex without intravenous administration of contrast. This CT examination was performed using dose optimization techniques as appropriate, variously including the following: *Automated exposure control *Adjustment of mA and/or kV according to patient size (this includes techniques or standardized protocols for targeted exams where dose is matched to indication/reason for exam; i.e. extremities or head) *Use of iterative reconstruction technique DLP: 687 mGy-cm. FINDINGS: There is no intracranial hemorrhage, large infarction, or mass lesion. There is no extra-axial collection. The ventricles are normal in size and configuration without evidence of hydrocephalus. The visualized paranasal sinuses and mastoid air cells are clear. CT/CT head/brain wo IV con IMPRESSION: No acute intracranial abnormality.
--- NOTE | 2022-11-16 18:01 | ECG_ITS ---
Test Reason : chestpain Blood Pressure : / mmHG Vent. Rate : 086 BPM Atrial Rate : 086 BPM P-R Int : 160 ms QRS Dur : 080 ms QT Int : 352 ms P-R-T Axes : 038 -10 078 degrees QTc Int : 421 ms Normal sinus rhythm Minimal voltage criteria for LVH, may be normal variant ( R in aVL ) Borderline ECG When compared with ECG of 03-APR-2022 15:01, No significant change was found Referred By: Juliann Kaye Electronically Signed By:Isaac Guzmán
--- NOTE | 2022-11-16 18:43 | ED.RECABL ---
HPI - Recheck/Abnormal Lab/Rx General Chief Complaint: Recheck/Abnormal Lab/Rx Stated Complaint: sent by dr/ high potassium Time Seen by Provider: 11/16/22 19:42 Source: patient Mode of arrival: ambulatory Limitations: no limitations History of Present Illness HPI narrative: Patient comes emergency room complaining of high potassium. Patient states that he receive a phone call to to 3 days ago from their primary care physician asking them to come to the emergency room for hyperkalemia. Patient states he is asymptomatic. Patient has had high potassium in the past, states that he has to take some kind of medication that made him have hyperkalemia, but discontinue taking it several weeks ago. Patient denies chest pain or shortness of breath. Patient states that in 1 week, he has fallen 3 times. Patient states that it usually happens when he stands up fast, he falls, does not pass out. Patient states that today he hit his head, has mild headache, no neck pain, denies being on blood thinners. Related Data Previous Rx's Medication Instructions Recorded sodium polystyrene sulfonate 15 g PO DAILY 1 day #15 grams 05/06/20 cyclobenzaprine 10 mg tablet 10 mg PO TID PRN muscle spasm #10 03/24/22 tabs acetaminophen 500 mg tablet 500 mg PO Q6H PRN fever or pain 04/03/22 (Tylenol Extra Strength) #14 tabs cyclobenzaprine 5 mg tablet 5 mg PO Q8H PRN pain (scale score 04/03/22 7-10) 5 days #14 tabs ketorolac 10 mg tablet 10 mg PO TID PRN pain 5 days #15 04/03/22 tabs lidocaine 5 % topical patch 1 patch topical DAILY PRN pain #30 04/03/22 (Lidoderm) ea Allergies Allergy/AdvReac Type Severity Reaction Status Date / Time No Known Allergies Allergy Verified 11/16/22 18:49 [No Known Allergies*] Review of Systems Review of Systems: Constitutional : No Weight loss, No Fever, No Chills, No Night Sweats, No Fatigue, No Malaise , complaining of multiple falls ENT/Mouth : No Hearing loss, No Ear Pain, No Nasal Congestion, No Sinus Pain, No Hoarseness, No sore throat, No Rhinorrhea, No Swallowing Difficulty Eyes: No Eye Pain, No Swelling, No Redness, No Foreign Body, No Discharge, No Vision Changes Cardiovascular : No Chest Pain, No SOB, No Dyspnea on Exertion, No Orthopnea, No Edema, No Palpitations Respiratory : No Cough, No Sputum, No Wheezing, No Smoke Exposure, No Dyspnea Gastrointestinal : No Nausea, No Vomiting, No Diarrhea, No Constipation, No abdominal Pain, No Hematochezia, No Melena Genitourinary : no irregular bleeding, No Dysuria, No Urinary Frequency, No Hematuria, No Urinary Incontinence, No Urgency, No Flank Pain, No Urinary Flow Changes, No Hesitancy Musculoskeletal : No joint pain, No Myalgias, No Joint Swelling Skin : No Skin Lesions, No rash Neuro : No Weakness, No Numbness, No Paresthesias, No Loss of Consciousness, No Dizziness, complaining of mild Headache Psych : No Anxiety/Panic, No Depression, No SI/HI/AH/VH, No Social Issues, Heme/Lymph: No Bruising, No Bleeding,No Lymphadenopathy Endocrine : No Polyuria, No Polydipsia, No Temperature Intolerance [facility], [facility] Past Medical History Medical History Diabetes HTN (hypertension) Social History Social History Alcohol intake: unknown Advance Directives: No Advance Directives Information Provided: No Physical Exam Vital Signs: Vital Signs: Last Vital Signs Temp 97.5 F 11/16/22 22:57 Pulse 101 H 11/16/22 22:57 Resp 18 11/16/22 22:57 BP 160/87 H 11/16/22 22:57 Pulse Ox 96 11/16/22 22:57 O2 Del Method Room Air 11/16/22 22:57 BMI result Body Mass Index 30.5 Const: Other: Appearance: Alert. Oriented X3. No acute distress. Eyes: Pupils equal, round and reactive to light. ENT: Pharynx normal. Neck: Normal inspection. Neck supple. No lymph nodes noted. No crepitus CVS: Normal heart rate and rhythm. Pulses normal. Normal S1 and S2 Respiratory: No respiratory distress. Breath sounds normal. No Wheezing. No rales Abdomen: Soft and nontender. No rigidity. No distention. Skin: Skin warm and dry. Normal skin color. Normal skin turgor. there is a small barely noticeable ecchymosis on the scalp posteriorly Extremities: No lower extremity edema. No Lacerations. No Rash Neuro: Oriented X 3. No motor deficit. No sensory deficit. Moving all extremities. No slurred speech. CN 2 through 12 grossly intact Psych: calm, cooperative, normal affect Course Course Course Narrative: RME - 62 yo male with history of DM, HTN who presents to the ER from home for evaluation of elevated potassium on outpatient blood work. MD called expect with K 6.8. He also reports a fall today, lost his balance after seeing his PCP. No injuries. Also reporting some abdominal discomfort. Plan: repeat labs STAT Medications Administered Discontinued Medications Generic Name Dose Route Start Last Admin Trade Name Freq PRN Reason Stop Dose Admin Albuterol Sulfate 10 mg 11/16/22 19:56 11/16/22 20:20 Albuterol Sulfate (0.083%) 2.5 Mg/3 Ml Vial.Neb INHALE 11/16/22 19:57 10 mg ONCE ONE Administration Medical Decision Making Medical Decision Making [facility] Narrative: - potassium improved from 5.8-4.7. Patient remains asymptomatic. - However, after IV fluids, JUAN worsened, creatinine increased from 1.53-1.64. - I discussed the patient with Dr. Roy, patient being admitted for JUAN Admission/Observation Consideration of admission/observation: Escalation of care including admission/observation considered Consult Healthcare Provider Management of the patient was discussed with: Hospitalist Lab Data [facility] Lab Attestation statement: I reviewed the patient's lab results. 11/16/22 19:03 11/16/22 19:03 Labs: Lab Results 11/16/22 11/16/22 11/16/22 Range/Units 19:03 19:03 20:15 WBC 10.8 (4.8-10.8) X10*3/uL RBC 4.21 L (4.60-5.80) X10*6/uL Hgb 11.9 L (14.0-18.0) g/dl Hct 38.3 L (42.0-52.0) % MCV 91.0 (80.0-98.0) fL MCH 28.3 (27.0-33.0) pg MCHC 31.1 (31.0-36.0) g/dl RDW 13.2 (11.0-16.0) % Plt Count 263 (160-400) X10*3/uL MPV 11.9 (9.4-12.4) fL Immature Gran % (Auto) 0.6 H (0.0-0.4) % Neut % (Auto) 47.4 (45-73) % Lymph % (Auto) 39.0 (20-40) % [place] % (Auto) 9.8 (2-11) % Eos % (Auto) 2.5 (0-4) % Baso % (Auto) 0.7 (0-2) % Lymph # (Auto) 4.2 (1.2-4.9) X10*3/uL [place] # (Auto) 1.1 (0.1-1.2) X10*3/uL Eos # (Auto) 0.3 (0.0-0.4) X10*3/uL Baso # (Auto) 0.1 (0.0-0.2) X10*3/uL Abs Immat Gran (auto) 0.06 H (0.00-0.03) X10*3/uL Absolute Neuts (auto) 5.1 (2.0-8.3) x10*3/uL Absolute Nucleated RBC 0.000 (0.0-0.012) X10*3/uL Nucleated RBC % (auto) 0.0 (0.0-0.2) /100WBC Sodium 141 (135-145) mmol/L Potassium 5.8 H D (3.3-5.1) mmol/L Chloride 106 (96-108) mmol/L Carbon Dioxide 28 (22-29) mmol/L Anion Gap 13 (12-20) BUN 35 H (9-16) mg/dL Creatinine 1.53 H (0.5-1.4) mg/dL Estim Creat Clear Calc 59.3 Estimated GFR 46 POC Glucose (60-115) mg/dL Random Glucose 55 L* (60-115) mg/dL Calcium 10.2 D (8.4-10.2) mg/dL Magnesium 2.0 (1.6-2.6) mg/dL Total Bilirubin 0.4 (0.0-1.0) mg/dL Direct Bilirubin 0.1 (0.0-0.5) mg/dL AST 17 (5-37) U/L ALT 14 (0-40) U/L Alkaline Phosphatase 91 (39-117) U/L Troponin I High Sens < 2.7 (<3.5-35.0) ng/L Total Protein 7.2 (6.5-8.0) g/dL Albumin 3.9 (3.5-5.0) g/dL 11/16/22 11/16/22 Range/Units 20:25 22:10 WBC (4.8-10.8) X10*3/uL RBC (4.60-5.80) X10*6/uL Hgb (14.0-18.0) g/dl Hct (42.0-52.0) % MCV (80.0-98.0) fL MCH (27.0-33.0) pg MCHC (31.0-36.0) g/dl RDW (11.0-16.0) % Plt Count (160-400) X10*3/uL MPV (9.4-12.4) fL Immature Gran % (Auto) (0.0-0.4) % Neut % (Auto) (45-73) % Lymph % (Auto) (20-40) % [place] % (Auto) (2-11) % Eos % (Auto) (0-4) % Baso % (Auto) (0-2) % Lymph # (Auto) (1.2-4.9) X10*3/uL [place] # (Auto) (0.1-1.2) X10*3/uL Eos # (Auto) (0.0-0.4) X10*3/uL Baso # (Auto) (0.0-0.2) X10*3/uL Abs Immat Gran (auto) (0.00-0.03) X10*3/uL Absolute Neuts (auto) (2.0-8.3) x10*3/uL Absolute Nucleated RBC (0.0-0.012) X10*3/uL Nucleated RBC % (auto) (0.0-0.2) /100WBC Sodium 139 (135-145) mmol/L Potassium 4.7 (3.3-5.1) mmol/L Chloride 104 (96-108) mmol/L Carbon Dioxide 25 (22-29) mmol/L Anion Gap 15 (12-20) BUN 37 H (9-16) mg/dL Creatinine 1.64 H (0.5-1.4) mg/dL Estim Creat Clear Calc 55.3 Estimated GFR 43 POC Glucose 124 H (60-115) mg/dL Random Glucose 238 H (60-115) mg/dL Calcium 9.4 D (8.4-10.2) mg/dL Magnesium (1.6-2.6) mg/dL Total Bilirubin (0.0-1.0) mg/dL Direct Bilirubin (0.0-0.5) mg/dL AST (5-37) U/L ALT (0-40) U/L Alkaline Phosphatase (39-117) U/L Troponin I High Sens (<3.5-35.0) ng/L Total Protein (6.5-8.0) g/dL Albumin (3.5-5.0) g/dL Critical Care Time Critical Care Time Critical Care Time: Yes Total Critical Care Time: 60 Attestation: I have personally provided critical care time. Time includes review of lab data, radiology results, discussion with consultants, and monitoring for potential decompensation. Intervention performed as documented. Discharge Plan Discharge Clinical Impression: Acute hyperkalemia, Acute kidney injury Patient Disposition: Admitted As Inpatient Prescriptions: No Action sodium polystyrene sulfonate Powder 15 g PO DAILY 1 Days Qty: 15 0RF cyclobenzaprine 10 mg tablet 10 mg PO TID PRN (Reason: muscle spasm) Qty: 10 0RF ketorolac 10 mg tablet 10 mg PO TID PRN (Reason: pain) 5 Days Qty: 15 0RF cyclobenzaprine 5 mg tablet 5 mg PO Q8H PRN (Reason: pain (scale score 7-10)) 5 Days Qty: 14 0RF acetaminophen [Tylenol Extra Strength] 500 mg tablet 500 mg PO Q6H PRN (Reason: fever or pain) Qty: 14 0RF lidocaine [Lidoderm] 5 % adhesive patch,medicated 1 patch topical DAILY MDD remove after 12 hours PRN (Reason: pain) Qty: 30 0RF Rx Instructions: leave on most painful area for up to 12 hrs
[2022-11-16 19:07] LABS: MANUAL DIFF FLAG NO
[2022-11-16 19:28] LABS: Alanine Aminotransferase 14 U/L (0-40); Albumin Level 3.9 g/dL (3.5-5.0); Alkaline Phosphatase 91 U/L (39-117); Anion Gap 13 (12-20); Aspartate Amino Transferase 17 U/L (5-37); Bilirubin Direct 0.1 mg/dL (0.0-0.5); Bilirubin Total 0.4 mg/dL (0.0-1.0); Blood Urea Nitrogen 35 mg/dL (9-16); Calcium 10.2 mg/dL (8.4-10.2); Carbon Dioxide 28 mmol/L (22-29); Chloride 106 mmol/L (96-108); Creatinine Clr Calc Pharmacy 59.3; Estimated Glomerular Filt Rate 46; Glucose Random 55 mg/dL (60-115); Potassium 5.8 mmol/L (3.3-5.1); Sodium 141 mmol/L (135-145); Total Protein 7.2 g/dL (6.5-8.0)
[2022-11-16 19:33] LABS: Basophils Absolute Auto 0.1 X10*3/uL (0.0-0.2); Basophils Percent Auto 0.7 % (0-2); Eosinophils Absolute Auto 0.3 X10*3/uL (0.0-0.4); Eosinophils Percent Auto 2.5 % (0-4); Hematocrit 38.3 % (42.0-52.0); Hemoglobin 11.9 g/dl (14.0-18.0); Imm Gran Abs Auto 0.06 X10*3/uL (0.00-0.03); Imm Gran Pct Auto 0.6 % (0.0-0.4); Lymphocytes Absolute Auto 4.2 X10*3/uL (1.2-4.9); Mean Corpuscular HGB Conc 31.1 g/dl (31.0-36.0); Mean Corpuscular Hemoglobin 28.3 pg (27.0-33.0); Mean Platelet Volume 11.9 fL (9.4-12.4); Monocytes Absolute Auto 1.1 X10*3/uL (0.1-1.2); Monocytes Percent Auto 9.8 % (2-11); Neutrophils Absolute Auto 5.1 x10*3/uL (2.0-8.3); Neutrophils Percent Auto 47.4 % (45-73); Platelet Count 263 X10*3/uL (160-400); Red Blood Count 4.21 X10*6/uL (4.60-5.80); Red Cell Distribution Width 13.2 % (11.0-16.0); White Blood Count 10.8 X10*3/uL (4.8-10.8)
--- NOTE | 2022-11-16 19:51 | PC.NURSE ---
Blood sugar 55 gave turkey sandwich and apple juice x 2. K-5.8
[2022-11-16] MEDS: Albuterol Sulfate (0.083%) 2.5 MG/3 ML VIAL.NEB 10 MG INHALE (20:20)
[2022-11-16 20:40] LABS: Glucose, Whole Blood 124 mg/dL (60-115)
[2022-11-16 20:48] LABS: Troponin-I High Sensitivity < 2.7 ng/L (<3.5-35.0)
[2022-11-16 22:46] LABS: Anion Gap 15 (12-20); Blood Urea Nitrogen 37 mg/dL (9-16); Calcium 9.4 mg/dL (8.4-10.2); Carbon Dioxide 25 mmol/L (22-29); Chloride 104 mmol/L (96-108); Creatinine Clr Calc Pharmacy 55.3; Estimated Glomerular Filt Rate 43; Glucose Random 238 mg/dL (60-115); Potassium 4.7 mmol/L (3.3-5.1); Sodium 139 mmol/L (135-145)
--- NOTE | 2022-11-17 00:13 | P.HPHOSP_ITS ---
History of Present Illness Date of Service: 11/17/22 Chief Complaint: Abnormal labs This is a 62-year-old male with pertinent history of essential hypertension, insulin-dependent diabetes mellitus, mixed hyperlipidemia, mood disorder who was sent to the emergency department for evaluation of abnormal labs. Patient states that he saw his primary care physician today and got blood work done. He was called from his PCPs office asking him to go to the ER for elevated potassium. Patient denies fever, chills, chest discomfort, palpitations, shortness of breath, abdominal pain, changes in urinary or bowel habits. Patient stated that he was taking some medication that made his potassium go up but that has been discontinued several weeks ago. He has been compliant with his medications in the emergency department, creatinine was found to be elevated Review of Systems Constitutional: Constitutional: Reports no additional constitutional complaints Cardiovascular: Cardiovascular: Reports no additional cardiovascular complaints Respiratory: Respiratory: Reports no additional respiratory complaints Gastrointestinal: Gastrointestinal: Reports no additional gastrointestinal complaints Genitourinary: Genitourinary: Reports no additional male genitourinary complaints [facility] Medical History Diabetes HTN (hypertension) Mixed hyperlipidemia Mood disorder Pertinent family history: no family history of early CAD Social History Alcohol intake: unknown Advance Directives: No Advance Directives Information Provided: No Meds Allergies Allergy/AdvReac Type Severity Reaction Status Date / Time No Known Allergies Allergy Verified 11/16/22 18:49 [No Known Allergies*] Active Medications: Current Medications Pharmacy Consult (Consult Rx Perform Med Rec) 1 each MISCELLANE ONCE PRN PRN Reason: Consult order Physical Exam Vital Signs and Narrative: Vital Signs: Last Vital Signs Temp 97.5 F 11/16/22 22:57 Pulse 101 H 11/16/22 22:57 Resp 18 11/16/22 22:57 BP 160/87 H 11/16/22 22:57 Pulse Ox 96 11/16/22 22:57 O2 Del Method Room Air 11/16/22 22:57 BMI result Body Mass Index 30.5 Middle-aged male lying in bed in no distress Neck supple, no JVD Regular rate and rhythm, S1-S2 heard Regular breath sounds bilaterally, no wheezing or crackles appreciated Abdomen distended nontender, no guarding, no rigidity Patient is awake, alert and oriented to self, place, time and person ; no focal motor deficit Psych: Normal mood No pedal edema Results Labs 11/16/22 19:03 11/16/22 22:10 Labs: Laboratory Results - last 24 hr 11/16/22 11/16/22 11/16/22 19:03 19:03 20:15 MCV 91.0 MCH 28.3 MCHC 31.1 RDW 13.2 Plt Count 263 MPV 11.9 Immature Gran % (Auto) 0.6 H Neut % (Auto) 47.4 Lymph % (Auto) 39.0 [place] % (Auto) 9.8 Eos % (Auto) 2.5 Baso % (Auto) 0.7 Lymph # (Auto) 4.2 [place] # (Auto) 1.1 Eos # (Auto) 0.3 Baso # (Auto) 0.1 Abs Immat Gran (auto) 0.06 H Absolute Neuts (auto) 5.1 Absolute Nucleated RBC 0.000 Nucleated RBC % (auto) 0.0 Anion Gap 13 Estim Creat Clear Calc 59.3 Estimated GFR 46 POC Glucose Random Glucose 55 L* Calcium 10.2 D Magnesium 2.0 Total Bilirubin 0.4 Direct Bilirubin 0.1 AST 17 ALT 14 Alkaline Phosphatase 91 Troponin I High Sens < 2.7 Total Protein 7.2 Albumin 3.9 11/16/22 11/16/22 20:25 22:10 MCV MCH MCHC RDW Plt Count MPV Immature Gran % (Auto) Neut % (Auto) Lymph % (Auto) [place] % (Auto) Eos % (Auto) Baso % (Auto) Lymph # (Auto) [place] # (Auto) Eos # (Auto) Baso # (Auto) Abs Immat Gran (auto) Absolute Neuts (auto) Absolute Nucleated RBC Nucleated RBC % (auto) Anion Gap 15 Estim Creat Clear Calc 55.3 Estimated GFR 43 POC Glucose 124 H Random Glucose 238 H Calcium 9.4 D Magnesium Total Bilirubin Direct Bilirubin AST ALT Alkaline Phosphatase Troponin I High Sens Total Protein Albumin Imaging Radiologist's Impressions: Impressions Head CT 11/16/22 21:01 IMPRESSION: No acute intracranial abnormality. Assessment and Plan (1) Acute kidney injury: Status: Acute Plan This is a 62-year-old male with pertinent history of essential hypertension, insulin-dependent diabetes mellitus, mixed hyperlipidemia, mood disorder who was sent to the emergency department for evaluation of abnormal labs. #. Acute kidney injury, stage I , nonoliguric. Monitor creatinine and urine output with fluid resuscitation. UA pending. urine creatinine and urine sodium obtained #. essential hypertension. Continue home antihypertensives, avoid nephrotoxins #. insulin-dependent diabetes mellitus with hyperglycemia. Initiating Accu- Cheks with sliding scale insulin before meals and at bedtime #. mood disorder. Continue home mood stabilizers #. mixed hyperlipidemia: On statin med rec pending DVT prophylaxis: Lovenox Full code Time Spent With Patient Time: Total time managing care of this patient today ____ minutes. Quality Stroke Does the patient have a stroke diagnosis?: No VTE Prior VTE?: No VTE Risk Level:: Medical - moderate - high VTE Device Contraindication: Treatment Not Indicated VTE Drug Contraindication: N/A - Med Ordered
[2022-11-17 00:27] VITALS: BP 151/89; PULSE 100; RESP 14; TEMP 36.4; O2SAT 97
[2022-11-17] MEDS: 0.9 % Sodium Chloride 1,000 ML 999 ML IV (00:52)
[2022-11-17] MEDS: Enoxaparin Sodium 40 MG/0.4 ML SYRINGE SUBCUT (01:05)
--- NOTE | 2022-11-17 01:25 | PC.NURSE ---
Med req completed
[2022-11-17 01:38] LABS: Appearance Urine Clear; Color Urine Yellow; Glucose Urine UA Negative (Negative); Leukocyte Esterase Urine Moderate (2+) (Negative); Nitrite Urine Negative (Negative); PH 5.5 (5.0-9.0); UMIC TRIGGER UACC YES; Urine Blood Negative (Negative); Urine Ketones Negative (Negative); Urine Protein 100 (2+) mg/dL (Neg-Trace)
[2022-11-17 01:43] LABS: Bacteria Urine None Seen (None Seen); Hyaline Casts Urine 0-2 /LPF (0-2); RBC Urine 0-2 /HPF (0-2); Squamous Epithelial Cell Urine 0-2 /HPF (0-2); UACC Culture Trigger YES
[2022-11-17 01:46] LABS: Creatinine Urine 57.63 mg/dL
--- NOTE | 2022-11-17 02:14 | P.HPHOSP_ITS ---
History of Present Illness Date of Service: 11/17/22 Chief Complaint: Fevers PMFSH Medical History Diabetes HTN (hypertension) Mixed hyperlipidemia Mood disorder Social History Alcohol intake: unknown Patient Tobacco Use Status: Former Tobacco user Smoked in Last 30 Days: No Use of substances other than those prescribed or required for medical reasons: No Advance Directives: No Advance Directives Information Provided: No Nutrition Risks: No Nutritional Risk Meds Allergies Allergy/AdvReac Type Severity Reaction Status Date / Time No Known Allergies Allergy Verified 11/16/22 18:49 [No Known Allergies*] Active Medications: Current Medications Acetaminophen (Acetaminophen 325 Mg Tablet) 650 mg PO Q6H PRN PRN Reason: Pain, Mild (Pain Scale 1-3) Enoxaparin Sodium (Enoxaparin Sodium 40 Mg/0.4 Ml Syringe) 40 mg SUBCUT Q24H [facility] Last Admin: 11/17/22 01:05 Dose: 40 mg Glucose (Glucose Gel 15 Gm Gel..Gram.) 15 gm PO Q15M PRN; Protocol PRN Reason: per Hypoglycemia Standing Ord. Dextrose (D10) 250 mls @ 750 mls/hr IV Q15M PRN; Protocol PRN Reason: per Hypoglycemia Standing Ord. Insulin Human Lispro (Insulin Lispro 100 Unit/Ml 3 Ml Vial) 0.1 - 10 unit SUBCUT QIDACHS [facility]; Protocol Melatonin (Melatonin 3 Mg Tablet) 6 mg PO BEDTIME PRN PRN Reason: Insomnia Ondansetron HCl (Ondansetron Hcl 4 Mg/2 Ml Vial) 4 mg IVPUSH Q8H PRN PRN Reason: Nausea and Vomiting Pharmacy Consult (Consult Rx Perform Med Rec) 1 each MISCELLANE ONCE PRN PRN Reason: Consult order Sodium Chloride (0.9 % Sodium Chloride Flush 3 Ml Syringe) 3 ml IVFLUSH QSHIST. [facility] Home Medications Medication Instructions Recorded Confirmed Last Taken Type albuterol sulfate 90 mcg/actuation 90 mcg inhalation Q6-8H PRN Cough 11/17/22 11/17/22 Unknown History aerosol inhaler alprazolam 1 mg tablet 1 mg PO BID PRN Sleep 11/17/22 11/17/22 Unknown History atorvastatin 80 mg tablet 80 mg PO DAILY 11/17/22 11/17/22 Unknown History bumetanide 1 mg tablet 1 mg PO DAILY 11/17/22 11/17/22 Unknown History famotidine 20 mg tablet 20 mg PO DAILY 11/17/22 11/17/22 Unknown History fluoxetine 20 mg capsule 60 mg PO QAM 11/17/22 11/17/22 Unknown History fluticasone furoate 100 1 ea inhalation DAILY 11/17/22 11/17/22 Unknown History mcg-vilanterol 25 mcg/dose inhalation powder (Breo Ellipta) gabapentin 300 mg capsule 300 mg PO DAILY 11/17/22 11/17/22 Unknown History hydrochlorothiazide 25 mg tablet 25 mg PO DAILY 11/17/22 11/17/22 Unknown History tamsulosin 0.4 mg capsule 0.4 mg PO DAILY 11/17/22 11/17/22 Unknown History tizanidine 4 mg tablet 4 mg PO Q6H PRN muscle spasm 11/17/22 11/17/22 Unknown History Physical Exam Vital Signs and Narrative: Vital Signs: Last Vital Signs Temp 97.6 F 11/17/22 00:27 Pulse 100 11/17/22 00:27 Resp 14 11/17/22 00:27 BP 151/89 H 11/17/22 00:27 Pulse Ox 97 11/17/22 00:27 O2 Del Method Room Air 11/17/22 00:27 BMI result Body Mass Index 30.5 Results Labs 11/16/22 19:03 11/16/22 22:10 Labs: Laboratory Results - last 24 hr 11/16/22 11/16/22 11/16/22 19:03 19:03 20:15 MCV 91.0 MCH 28.3 MCHC 31.1 RDW 13.2 Plt Count 263 MPV 11.9 Immature Gran % (Auto) 0.6 H Neut % (Auto) 47.4 Lymph % (Auto) 39.0 [place] % (Auto) 9.8 Eos % (Auto) 2.5 Baso % (Auto) 0.7 Lymph # (Auto) 4.2 [place] # (Auto) 1.1 Eos # (Auto) 0.3 Baso # (Auto) 0.1 Abs Immat Gran (auto) 0.06 H Absolute Neuts (auto) 5.1 Absolute Nucleated RBC 0.000 Nucleated RBC % (auto) 0.0 Anion Gap 13 Estim Creat Clear Calc 59.3 Estimated GFR 46 POC Glucose Random Glucose 55 L* Calcium 10.2 D Magnesium 2.0 Total Bilirubin 0.4 Direct Bilirubin 0.1 AST 17 ALT 14 Alkaline Phosphatase 91 Troponin I High Sens < 2.7 Total Protein 7.2 Albumin 3.9 Urine Color Urine Appearance Urine pH Ur Specific [place] Urine Protein Urine Glucose (UA) Urine Ketones Urine Blood Urine Nitrite Ur Leukocyte Esterase Urine RBC Urine WBC Ur Squamous Epith Cells Urine Bacteria Hyaline Casts Ur Random Sodium Urine Creatinine 11/16/22 11/16/22 11/17/22 20:25 22:10 01:27 MCV MCH MCHC RDW Plt Count MPV Immature Gran % (Auto) Neut % (Auto) Lymph % (Auto) [place] % (Auto) Eos % (Auto) Baso % (Auto) Lymph # (Auto) [place] # (Auto) Eos # (Auto) Baso # (Auto) Abs Immat Gran (auto) Absolute Neuts (auto) Absolute Nucleated RBC Nucleated RBC % (auto) Anion Gap 15 Estim Creat Clear Calc 55.3 Estimated GFR 43 POC Glucose 124 H Random Glucose 238 H Calcium 9.4 D Magnesium Total Bilirubin Direct Bilirubin AST ALT Alkaline Phosphatase Troponin I High Sens Total Protein Albumin Urine Color Urine Appearance Urine pH Ur Specific [place] Urine Protein Urine Glucose (UA) Urine Ketones Urine Blood Urine Nitrite Ur Leukocyte Esterase Urine RBC Urine WBC Ur Squamous Epith Cells Urine Bacteria Hyaline Casts Ur Random Sodium 32.0 Urine Creatinine 57.63 11/17/22 01:27 MCV MCH MCHC RDW Plt Count MPV Immature Gran % (Auto) Neut % (Auto) Lymph % (Auto) [place] % (Auto) Eos % (Auto) Baso % (Auto) Lymph # (Auto) [place] # (Auto) Eos # (Auto) Baso # (Auto) Abs Immat Gran (auto) Absolute Neuts (auto) Absolute Nucleated RBC Nucleated RBC % (auto) Anion Gap Estim Creat Clear Calc Estimated GFR POC Glucose Random Glucose Calcium Magnesium Total Bilirubin Direct Bilirubin AST ALT Alkaline Phosphatase Troponin I High Sens Total Protein Albumin Urine Color Yellow Urine Appearance Clear Urine pH 5.5 Ur Specific [place] 1.010 Urine Protein 100 (2+) H Urine Glucose (UA) Negative Urine Ketones Negative Urine Blood Negative Urine Nitrite Negative Ur Leukocyte Esterase Moderate (2+) H Urine RBC 0-2 Urine WBC 11-20 H Ur Squamous Epith Cells 0-2 Urine Bacteria None Seen Hyaline Casts 0-2 Ur Random Sodium Urine Creatinine Imaging Radiologist's Impressions: Impressions Head CT 11/16/22 21:01 IMPRESSION: No acute intracranial abnormality. Assessment and Plan Time Spent With Patient Time: Total time managing care of this patient today ____ minutes. Quality Stroke Does the patient have a stroke diagnosis?: No VTE Prior VTE?: No VTE Risk Level:: Medical - moderate - high VTE Device Contraindication: Treatment Not Indicated VTE Drug Contraindication: N/A - Med Ordered
[2022-11-17 06:11] LABS: MANUAL DIFF FLAG NO
[2022-11-17 06:16] LABS: Basophils Absolute Auto 0.1 X10*3/uL (0.0-0.2); Basophils Percent Auto 0.9 % (0-2); Eosinophils Absolute Auto 0.2 X10*3/uL (0.0-0.4); Eosinophils Percent Auto 2.3 % (0-4); Hematocrit 34.5 % (42.0-52.0); Hemoglobin 10.7 g/dl (14.0-18.0); Imm Gran Abs Auto 0.05 X10*3/uL (0.00-0.03); Imm Gran Pct Auto 0.6 % (0.0-0.4); Lymphocytes Absolute Auto 2.8 X10*3/uL (1.2-4.9); Lymphocytes Percent Auto 33.5 % (20-40); Mean Corpuscular Hemoglobin 28.5 pg (27.0-33.0); Monocytes Absolute Auto 0.8 X10*3/uL (0.1-1.2); Monocytes Percent Auto 9.4 % (2-11); Neutrophils Absolute Auto 4.4 x10*3/uL (2.0-8.3); Neutrophils Percent Auto 53.3 % (45-73); Platelet Count 219 X10*3/uL (160-400); Red Blood Count 3.75 X10*6/uL (4.60-5.80); Red Cell Distribution Width 13.5 % (11.0-16.0); White Blood Count 8.2 X10*3/uL (4.8-10.8)
[2022-11-17 06:28] VITALS: BP 102/54; PULSE 73; RESP 18; TEMP 37.1; O2SAT 99
[2022-11-17 06:32] LABS: Anion Gap 12 (12-20); Blood Urea Nitrogen 32 mg/dL (9-16); Calcium 9.2 mg/dL (8.4-10.2); Carbon Dioxide 26 mmol/L (22-29); Chloride 108 mmol/L (96-108); Creatinine Clr Calc Pharmacy 60.1; Estimated Glomerular Filt Rate 47; Glucose Random 211 mg/dL (60-115); Potassium 5.3 mmol/L (3.3-5.1); Sodium 141 mmol/L (135-145)
[2022-11-17 07:33] LABS: Glucose, Whole Blood 191 mg/dL (60-115)
[2022-11-17] MEDS: Insulin Lispro 100 UNIT/ML 3 ML VIAL SUBCUT ×4 (07:53→21:07)
[2022-11-17] MEDS: 0.9 % Sodium Chloride Flush 3 ML SYRINGE IVFLUSH (07:53)
--- NOTE | 2022-11-17 07:55 | PC.NURSE ---
medicated per emar- reports he uses methadone and goes in [place]. will reach out to [facility] for assistance
--- NOTE | 2022-11-17 08:04 | PC.NURSE ---
report given to [facility] reaching out to transport
--- NOTE | 2022-11-17 09:17 | PHA.MEDREC ---
Pharmacy Consult ? Medication Reconciliation Pharmacy has completed the medication reconciliation. Contacted patients for med list. contacted [facility] for directions. pt no longer taking trulicity and switching to ozempic but has not started this medicaiton yet
--- NOTE | 2022-11-17 09:27 | PM.EVENT ---
Event Note Date of Service: 11/17/22 Event Note: S C/o epigastric discomfort, nausea but no vomiting. No diarrhea. O VS- T 98.8, BP 102/54, P 73, R 18, SaO2 99 on RA Gen: in no acute distress HEENT: sclera anicteric, moist mucus membranes Neck: supple Lungs: clear to auscultation bilaterally Heart: regular rate and rhythm, no murmurs Abd: soft, non-tender, non-distended, obese Ext: no edema Skin: warm/well-perfused Neuro: alert and oriented x3, no focal findings Psych: appropriate affect Labs: SCr 1.51, K 5.3 A/P 62yo M with DM + HTN sent in by PCP for JUAN/hyperK # JUAN - Prerenal, FENa 0.6%. Give IVisotonic saline, hold diuretics [bumetanide + HCTZ], recheck BMP in AM # hyperK, mild - likely due to JUAN, not on BIBI-I/ARB/TMP. Will give 1 dose Lokelma + recheck K in AM # DM2 - basal/bolus insulin # HLD - atorvastatin # neuropathy - gabapentin # GERD - change to PPI # mood disorder - fluoxetine, alprazolam # chronic lung disease - Breo, albuterol, tiotropium # VTE ppx - LMWH # dispo - eventual home In my clinical judgment, the patient requires continued inpatient hospitalization for the following reasons: JUAN Time Spent With Patient Time: Total time managing care of this patient today ____ minutes.
[2022-11-17 09:33] VITALS: BP 178/84; PULSE 85; RESP 17; TEMP 36; O2SAT 97
[2022-11-17] MEDS: Sodium Zirconium Cyclosilicate 10 GM POWD.PACK PO (10:26)
[2022-11-17] MEDS: FLUoxetine HCl 20 MG CAPSULE 60 MG PO (10:27)
[2022-11-17] MEDS: Omeprazole 40 MG CAPSULE.DR PO (10:27)
[2022-11-17] MEDS: Gabapentin 300 MG CAPSULE PO (10:27)
[2022-11-17] MEDS: Tamsulosin HCL 0.4 MG CAPSULE PO (10:27)
[2022-11-17] MEDS: Atorvastatin Calcium 80 MG TABLET PO (10:27)
[2022-11-17] MEDS: Insulin Glargine,Hum.rec.anlog 100 UNIT/ML 10 ML VIAL 25 UNIT SUBCUT (10:27)
[2022-11-17] MEDS: ALPRAZolam 0.5 MG TABLET 1 MG PO (11:05)
[2022-11-17] MEDS: 0.9 % Sodium Chloride 1,000 ML 125 ML IVCONT ×2 (11:15→19:55)
[2022-11-17 11:35] LABS: Glucose, Whole Blood 181 mg/dL (60-115)
--- NOTE | 2022-11-17 12:16 | HE.PHANOTE ---
Methadone Methadone verification sent down for this patient from nursing. Last dose not documented on verification sheet. Contacted clinic and last dose was given 11/16/22 (43 mg)
[2022-11-17] MEDS: methADONE HCl 20 MG/2 ML ORAL.CONC 43 MG PO (12:35)
--- NOTE | 2022-11-17 13:13 | MHC.CM.PN ---
pt lives with his bottom wheeler own ride home has a ride home has a nurse that visits once a year dc plan home with bottom wheeler
[2022-11-17 14:47] VITALS: BP 153/78; PULSE 87
[2022-11-17 16:00] VITALS: BP 162/79; PULSE 85; RESP 17; TEMP 36.2; O2SAT 96
[2022-11-17 16:24] LABS: Glucose, Whole Blood 213 mg/dL (60-115)
[2022-11-17 19:16] VITALS: PULSE 80; RESP 18; TEMP 36.4; O2SAT 98
[2022-11-17 20:46] LABS: Glucose, Whole Blood 258 mg/dL (60-115)
[2022-11-17] MEDS: Magnesium Hydrox/Alum Hydrox 30 ML ORAL.SUSP 15 ML PO (22:49)
[2022-11-18] MEDS: Enoxaparin Sodium 40 MG/0.4 ML SYRINGE SUBCUT (00:52)
[2022-11-18] MEDS: 0.9 % Sodium Chloride Flush 3 ML SYRINGE IVFLUSH (00:52)
[2022-11-18] MEDS: 0.9 % Sodium Chloride 1,000 ML 125 ML IVCONT ×2 (00:56→09:04)
--- NOTE | 2022-11-18 01:57 | PC.NURSE ---
Pt c/o upset stomach and having acid reflux, Dr. Roy was notified, Maalox susp 15 ml po given, with some relief.
[2022-11-18 04:00] VITALS: BP 179/79; PULSE 89; RESP 16; TEMP 36; O2SAT 94
[2022-11-18] MEDS: Omeprazole 40 MG CAPSULE.DR PO (05:42)
[2022-11-18 06:41] LABS: Anion Gap 12 (12-20); Blood Urea Nitrogen 22 mg/dL (9-16); Calcium 8.9 mg/dL (8.4-10.2); Carbon Dioxide 23 mmol/L (22-29); Chloride 115 mmol/L (96-108); Creatinine Clr Calc Pharmacy 75.6; Estimated Glomerular Filt Rate > 60; Glucose Random 103 mg/dL (60-115); Potassium 4.6 mmol/L (3.3-5.1); Sodium 145 mmol/L (135-145)
[2022-11-18 07:12] VITALS: BP 175/86; PULSE 86; RESP 18; TEMP 36; O2SAT 98
[2022-11-18 07:25] LABS: Glucose, Whole Blood 118 mg/dL (60-115)
[2022-11-18] MEDS: Fluticasone/Vilanterol 100/25 BLST.W.DEV 1 PUFF INHALE (07:58)
[2022-11-18 07:59] VITALS: PULSE 84; RESP 18; O2SAT 96
[2022-11-18] MEDS: Tamsulosin HCL 0.4 MG CAPSULE PO (08:23)
[2022-11-18] MEDS: methADONE HCl 20 MG/2 ML ORAL.CONC 43 MG PO (08:23)
[2022-11-18] MEDS: Gabapentin 300 MG CAPSULE PO (08:23)
[2022-11-18] MEDS: FLUoxetine HCl 20 MG CAPSULE 60 MG PO (08:23)
[2022-11-18] MEDS: Atorvastatin Calcium 80 MG TABLET PO (08:23)
[2022-11-18] MEDS: Insulin Glargine,Hum.rec.anlog 100 UNIT/ML 10 ML VIAL 25 UNIT SUBCUT (08:24)
[2022-11-18] MEDS: Acetaminophen 325 MG TABLET 650 MG PO (10:27)
[2022-11-18 11:18] VITALS: PULSE 84
[2022-11-18 11:32] LABS: Glucose, Whole Blood 183 mg/dL (60-115)
[2022-11-18] MEDS: amLODIPine Besylate 2.5 MG TABLET PO (11:32)
[2022-11-18] MEDS: Insulin Lispro 100 UNIT/ML 3 ML VIAL SUBCUT ×2 (11:54→16:47)
--- NOTE | 2022-11-18 14:31 | MHC.CM.PN ---
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
--- NOTE | 2022-11-18 15:31 | P.DS_ITS ---
DS: Providers Provider Date of Service: 11/18/22 Date of admission: 11/17/22 00:11 Date of discharge: 11/18/22 Primary care physician: Freddy Rai III, MD Attending physician on discharge: Miguel Suresh Discharging clinician: Olesya Stapleton DS: Diagnosis Discharge Diagnosis (1) Acute kidney injury: Status: Acute DS: Summary Hospital Course Hospital Course: From H&P on day of admission This is a 62-year-old male with pertinent history of essential hypertension, insulin-dependent diabetes mellitus, mixed hyperlipidemia, mood disorder who was sent to the emergency department for evaluation of abnormal labs.? Patient states that he saw his primary care physician today and got blood work done.? He was called from his PCPs office asking him to go to the ER for elevated potassium.? Patient denies fever, chills, chest discomfort, palpitations, shortness of breath, abdominal pain, changes in urinary or bowel habits.? Patient stated that he was taking some medication that made his potassium go up but that has been discontinued several weeks ago.? He has been compliant with his medications ?in the emergency department, creatinine was found to be elevated JUAN. Likely pre renal. Treated with IV fluid. Hydrochlorothiazide was discontinued and bumex was placed on hold. Renal function improved to creatinine of 1.20. can resume bumex on tuesday, recommend repeat BMP in one w king salmon. hyperkalemia. Resolved with 1 dose of Lokelma. HTN. HCTZ stopped due to JUAN. changed to norvasc. Will need outpatient follow- up with PCP to up titrate medications as needed. Mechanical fall. Seen by Physical therapy, recommended short-term rehab. Patient declined it was opted to return home with home physical therapy. Time Spent with Patient Time attestation: Total time managing care of this patient today ____ minutes. Discharge coordination time: Greater than 30 minutes Quality: Safe Use of Opioids Does Pt have an Active Cancer Diagnosis on the Problem List?: No Quality: Stroke Does the patient have a stroke diagnosis?: No Physical Exam Vital Signs: Vital Signs: Last Vital Signs Temp 96.8 F 11/18/22 07:12 Pulse 84 11/18/22 11:18 Resp 18 11/18/22 07:59 BP 175/86 H 11/18/22 07:12 Pulse Ox 98 11/18/22 07:12 O2 Del Method Room Air 11/18/22 07:12 BMI result Body Mass Index 30.5 Const: General: cooperative, comfortable, alert and awake Nutritional Appearance: overweight Orientation/consciousness: patient oriented x3 Resp: Effort & Inspection: normal respiratory effort, able to speak in complete sentences, no respiratory distress and no use of accessory muscles Cardio: Rate: regular rate Heart sounds: S1 normal heart sound present and S2 normal heart sound present GI: Inspection: No distended Palpation (GI): Soft to palpation Neuro: General: patient oriented x3, moves all extremities and CN's II-XI intact bilaterally Extrem: General: Yes no pedal edema DS: Data Data Completed and Pending Labs on day of discharge: Laboratory Results - last 24 hr 11/17/22 11/17/22 11/18/22 16:21 20:37 05:19 Sodium 145 Potassium 4.6 Chloride 115 H Carbon Dioxide 23 Anion Gap 12 BUN 22 H Creatinine 1.20 Estim Creat Clear Calc 75.6 Estimated GFR > 60 POC Glucose 213 H 258 H Random Glucose 103 Calcium 8.9 11/18/22 11/18/22 07:10 11:22 Sodium Potassium Chloride Carbon Dioxide Anion Gap BUN Creatinine Estim Creat Clear Calc Estimated GFR POC Glucose 118 H 183 H Random Glucose Calcium Discharge Plan Discharge Patient Disposition: Home Health Service Discharge Diagnosis: JUAN hyperkalemia elevated blood pressure Referrals: [facility] [Outside] - 1 Week Freddy Rai III, MD [Primary Care Provider] - 1 Week Discharge Medications: New amlodipine [Norvasc] 5 mg tablet 5 mg PO DAILY 30 Days Qty: 30 0RF Continued atorvastatin 80 mg tablet 80 mg PO DAILY alprazolam 1 mg tablet 1 mg PO BID PRN (Reason: Sleep) tizanidine 4 mg tablet 4 mg PO Q6H PRN (Reason: muscle spasm) famotidine 20 mg tablet 20 mg PO DAILY tamsulosin 0.4 mg capsule 0.4 mg PO DAILY gabapentin 300 mg capsule 300 mg PO DAILY albuterol sulfate 90 mcg/actuation HFA aerosol inhaler 90 mcg inhalation Q6H PRN (Reason: Shortness Of Breath) fluoxetine 20 mg capsule 60 mg PO DAILY fluticasone furoate-vilanterol [Breo Ellipta] 100-25 mcg/dose blister with device 1 ea inhalation DAILY methadone 10 mg/mL Concentrate 43 mg PO DAILY insulin lispro [Humalog KwikPen Insulin] 100 unit/mL insulin pen See Protocol subcut TIDAC Protocol: Insulin Correction Scale Less than or equal to 110 ---- Give (units): 0 111 to 150 Give (units): 0 151 to 200 Give (units): 2 201 to 250 Give (units): 4 251 to 300 Give (units): 6 301 to 350 Give (units): 8 Greater than 350 Give (units): 10 Call MD if Blood Glucose > : 350 cholecalciferol (vitamin D3) [Vitamin D3] 25 mcg (1,000 unit) Tablet 25 mcg PO DAILY insulin degludec [Tresiba FlexTouch U-100] 100 unit/mL (3 mL) insulin pen 25 unit subcut BID Spiriva Respimat 1.25 mcg/actuation mist 2 puff inhalation DAILY Ozempic 0.25 mg or 0.5 mg (2 mg/3 mL) pen injector 0.25 mg subcut KONG@0900 Rx Instructions: Patient has not started yet- to be picked up at pharmacy Held bumetanide 1 mg tablet 1 mg PO DAILY Hold Instructions: resume tuesday Discontinued hydrochlorothiazide 25 mg tablet 25 mg PO DAILY Discharge Orders: Discharge Order (Routine); Ordered 11/18/22 Ordered By: Olesya Stapleton Activity on Discharge: As tolerated Stand Alone Forms: Patient Portal Discharge page Other Ambulatory Orders: Basic Metabolic Panel (Routine) Timeframe: 20221124 Facility: [facility] - Location: Laboratory Ordered By: Olesya Stapleton Care Plan Goals: see below Health Concerns: JUAN - resolved. resume bumex tuesday. stop taking hydrochlorothiazide. have repeat BMP in 1 week hyperkalemia -resolved seen by Physical therapy -recommended short-term rehab, patient opted to return home with home physical therapy Plan of Treatment: see above Assessment: see discharge summary
[2022-11-18 15:43] VITALS: BP 151/82; PULSE 78; RESP 18; TEMP 37; O2SAT 97
--- NOTE | 2022-11-18 15:45 | P.F2F_ITS ---
Service Date Service Date: 11/18/22 Encounter Date of encounter: 11/18/22 Reasons for Services Signs and symptoms assessed: needs physical therapy for unsteady gait Reason for occupational therapy: home safety and mobility, therapeutic exercises and gait/transfer training Overseeing Care: Freddy Rai III Homebound: Leaving the home is medically contraindicated at this time without the asist of a device and/or another person due th the listed conditions above and below. Reason homebound: unsteady gait / fall risk Certification: Based on the above findings, I certify that this patient is confined to the home and needs intermittent nursing home care, physical therapy and/or speech therapy, or continues to need occupational therapy. The patient is under my care, and I have initiated the establishment of the plan of care. The patient will be followed by a physician who will periodically review the plan of care. Time Spent With Patient Time: Total time managing care of this patient today ____ minutes.
[2022-11-18 15:46] VITALS: PULSE 78; RESP 18; TEMP 36.2; O2SAT 95
[2022-11-18 16:17] LABS: Glucose, Whole Blood 283 mg/dL (60-115)
== END 2022-11-18 17:26 | disposition home health service (06) ==
LOC: HO.ED 23:47 → HO.EDOVER 11-17 00:16 → HO.S3 11-17 07:15
PROVIDERS: Family Medicine; Physician Assistant; Admitting Provider Student in an Organized Health Care Education/Training Program; Emergency Provider Emergency Medicine; PCP Internal Medicine; Visit Provider Physician Assistant Medical
DX: N17.9 Acute kidney failure, unspecified (principal); E87.5 Hyperkalemia; E11.9 Type 2 diabetes mellitus without complications; I10 Essential (primary) hypertension
CPT/HCPCS: 36415; 70450; 80048; 80076; 81001; 82947; 83735; 84300; 84484; 85025; 87086; 93005; 94640; 96360; 96361; 96372; 97162; 99221; 99285; J1650

== ENCOUNTER 2022-12-07 19:29 | Emergency (ER) | payer MEDICARE, MEDICAID, SELFPAY ==
--- NOTE | 2022-12-07 | ECG_ITS ---
Test Reason : abnormal labs Blood Pressure : / mmHG Vent. Rate : 084 BPM Atrial Rate : 084 BPM P-R Int : 162 ms QRS Dur : 086 ms QT Int : 364 ms P-R-T Axes : 043 003 084 degrees QTc Int : 430 ms Normal sinus rhythm Normal ECG When compared with ECG of 16-NOV-2022 18:54, No significant change was found Referred By: Generic ED Physician Electronically Signed By:Isaac Guzmán
--- NOTE | 2022-12-07 19:40 | ED.GENADULT ---
HPI - General Adult General Chief complaint: Recheck/Abnormal Lab/Rx Stated complaint: Abnormal labs/High potassium Time Seen by Provider: 12/07/22 21:35 Source: patient and family () Mode of arrival: ambulatory History of Present Illness HPI narrative: 62-year-old male who was recently admitted here for JUAN and hyperkalemia was referred back to the emergency room after repeat outpatient lab work straight did potassium level 5.2. Patient denies any complaints of shortness of breath, chest pain/palpitations, nausea/vomiting, myalgias and denies any headache or dizziness. Related Data Home Medications Medication Instructions Recorded Confirmed albuterol sulfate 90 mcg/actuation 90 mcg inhalation Q6H PRN 11/17/22 11/17/22 aerosol inhaler Shortness Of Breath alprazolam 1 mg tablet 1 mg PO BID PRN Sleep 11/17/22 11/17/22 atorvastatin 80 mg tablet 80 mg PO DAILY 11/17/22 11/17/22 bumetanide 1 mg tablet 1 mg PO DAILY 11/17/22 11/17/22 cholecalciferol (vitamin D3) 25 25 mcg PO DAILY 11/17/22 11/17/22 mcg (1,000 unit) tablet (Vitamin D3) famotidine 20 mg tablet 20 mg PO DAILY 11/17/22 11/17/22 fluoxetine 20 mg capsule 60 mg PO DAILY 11/17/22 11/17/22 fluticasone furoate 100 1 ea inhalation DAILY 11/17/22 11/17/22 mcg-vilanterol 25 mcg/dose inhalation powder (Breo Ellipta) gabapentin 300 mg capsule 300 mg PO DAILY 11/17/22 11/17/22 insulin degludec 100 unit/mL (3 25 unit subcut BID 11/17/22 11/17/22 mL) subcutaneous pen (Tresiba FlexTouch U-100 insulin) insulin lispro 100 unit/mL See Protocol subcut TIDAC 11/17/22 11/17/22 subcutaneous pen (Humalog KwikPen (U-100) Insulin) methadone 10 mg/mL oral concentrate 43 mg PO DAILY 11/17/22 11/17/22 semaglutide 0.25 mg or 0.5 mg (2 0.25 mg subcut KONG@0900 11/17/22 11/17/22 mg/3 mL) subcutaneous pen injector (Ozempic) tamsulosin 0.4 mg capsule 0.4 mg PO DAILY 11/17/22 11/17/22 tiotropium bromide 1.25 2 puff inhalation DAILY 11/17/22 11/17/22 mcg/actuation mist for inhalation (Spiriva Respimat) tizanidine 4 mg tablet 4 mg PO Q6H PRN muscle spasm 11/17/22 11/17/22 Previous Rx's Medication Instructions Recorded amlodipine 5 mg tablet (Norvasc) 5 mg PO DAILY 30 days #30 tabs 11/18/22 Allergies Allergy/AdvReac Type Severity Reaction Status Date / Time No Known Allergies Allergy Verified 12/07/22 19:40 [No Known Allergies*] Review of Systems Review of Systems: Pertinent positives and negatives as stated in [facility] Past Medical History Source: nursing notes reviewed Medical History Diabetes HTN (hypertension) Mixed hyperlipidemia Mood disorder Social History Social History Household Members: Spouse Housing: Apartment Do you presently have visiting nurse or other home services: Yes (human services program specialist) Alcohol intake: never Patient Tobacco Use Status: Former Tobacco user Smoked in Last 30 Days: No Use of substances other than those prescribed or required for medical reasons: No Advance Directives: No Advance Directives Information Provided: No service: No Physical Exam ED Vital Signs: Vital Signs - 24 hr 12/07/22 19:41 12/08/22 05:16 12/08/22 06:33 Temperature 97.1 F 98.1 F Pulse Rate 84 70 76 Respiratory Rate 18 16 18 Blood Pressure 103/61 149/79 H Pulse Oximetry 98 95 Oxygen Delivery Method Room Air Room Air BMI result Body Mass Index 30.4 VITAL SIGNS: Reviewed. GENERAL: Well developed, well nourished, in no acute distress. HEAD: Normocephalic/atraumatic EYES: PERRLA, EOMI EARS: Ext canals without abnormality NOSE: Nares patent bilateral OROPHARYNX: no oral lesions noted, posterior pharynx clear NECK: Supple, no adenopathy LUNGS: Normal breath sounds. No adventitious sounds or accessory muscle use. SpO2<98> CARDIOVASCULAR: Regular rate and rhythm without noted murmurs ABDOMEN: Soft, non-tender, non-distended with bowel sounds. MUSCULOSKELETAL: No tenderness, deformities, or effusions noted on gross inspection. EXTREMITIES: No cyanosis, clubbing or edema. SKIN: Inspection of the skin reveals no rashes NEUROLOGIC: Alert and oriented x 4. Strength and sensation to light touch were grossly intact x 4. Course Course Course Narrative: This is an RME: Additional HPI, ROS, PE not included below will be deferred to primary provider. Patient is a 62-year-old male with history of recent admission for hyperkalemia and JUAN presenting to the emergency department from PCP office for K of 7.2, creatinine of 2.6, PCP states both values were higher than when he was inpatient in the hospital. Patient denies any symptoms. Plan: EKG, labs Reevaluation(s) Reevaluation #1: Patient with AKA with hyperkalemia received IV fluids p.o. Lokelma with partial response to medication for test patient asymptomatic EKG without any changes patient received calcium gluconate and insulin along with dextrose last potassium level was 5.5 Time: 05:30 Reevaluation #2: Patient received albuterol treatment and IV Lasix. Will discharge patient home as patient has no EKG changes and asymptomatic advised to follow with PCP for repeat chemistry in 2 days avoid to eat any [place] food or food and any high potassium Time: 06:37 Medications Administered Discontinued Medications Generic Name Dose Route Start Last Admin Trade Name Freq PRN Reason Stop Dose Admin Albuterol Sulfate 2.5 mg 12/08/22 06:21 12/08/22 06:30 Albuterol Sulfate (0.083%) 2.5 Mg/3 Ml Vial.Neb INHALE 12/08/22 06:22 2.5 mg ONCE ONE Administration Dextrose 12.5 gm 12/08/22 03:02 12/08/22 03:17 Dextrose 50 % 25 Gm/50 Ml Syringe IVPUSH 12/08/22 03:03 12.5 gm ONCE ONE Administration Furosemide 20 mg 12/08/22 06:21 12/08/22 06:30 Furosemide 20 Mg/2 Ml Vial IVPUSH 12/08/22 06:22 20 mg ONCE ONE Administration Protocol Sodium Chloride 1,000 mls @ 999 mls/hr 12/07/22 22:15 12/07/22 23:56 Ns IV 12/07/22 23:15 Infused .Q1H1M GILDARDO Infusion Calcium Gluconate 2 gm in 100 mls @ 50 mls/hr 12/08/22 03:00 12/08/22 05:13 Calcium Gluconate IV 12/08/22 04:59 Infused ONCE ONE Infusion Insulin Human Regular 5 unit 12/08/22 03:00 12/08/22 03:19 Insulin Regular, Human 100 Unit/Ml 3 Ml Vial IVPUSH 12/08/22 03:01 5 unit ONCE ONE Administration Sodium Zirconium Cyclosilicate 10 gm 12/08/22 00:51 12/08/22 01:11 Sodium Zirconium Cyclosilicate 10 Gm Powd.Pack PO 12/08/22 00:52 10 gm ONCE ONE Administration Medical Decision Making Medical Decision Making [facility] Narrative: This is a 62-year-old male with history and clinical presentation after review of all investigations consistent with mild bump an potassium levels likely secondary to JUAN. Patient received 1 L of IV fluids and will proceed with repeat basic metabolic panel. I reviewed patient's repeat BMP after receiving 1 L fluid come, JUAN is certainly improving, there was noted further elevation in the potassium for which patient will receive 10 mg of Lokelma and then have repeat BMP. I signed this out to Dr Styles. Differential Diagnosis Please see the discussion above Lab Data Please see the discussion above 12/07/22 20:09 12/07/22 20:09 Labs: Lab Results 12/07/22 12/07/22 12/07/22 Range/Units 20:09 20:09 20:09 WBC 9.8 (4.8-10.8) X10*3/uL RBC 4.00 L (4.60-5.80) X10*6/uL Hgb 11.4 L (14.0-18.0) g/dl Hct 37.1 L (42.0-52.0) % MCV 92.8 (80.0-98.0) fL MCH 28.5 (27.0-33.0) pg MCHC 30.7 L (31.0-36.0) g/dl RDW 13.5 (11.0-16.0) % Plt Count 262 (160-400) X10*3/uL MPV 12.0 (9.4-12.4) fL Immature Gran % (Auto) 0.5 H (0.0-0.4) % Neut % (Auto) 50.7 (45-73) % Lymph % (Auto) 33.7 (20-40) % [place] % (Auto) 10.8 (2-11) % Eos % (Auto) 3.4 (0-4) % Baso % (Auto) 0.9 (0-2) % Lymph # (Auto) 3.3 (1.2-4.9) X10*3/uL [place] # (Auto) 1.1 (0.1-1.2) X10*3/uL Eos # (Auto) 0.3 (0.0-0.4) X10*3/uL Baso # (Auto) 0.1 (0.0-0.2) X10*3/uL Abs Immat Gran (auto) 0.05 H (0.00-0.03) X10*3/uL Absolute Neuts (auto) 5.0 (2.0-8.3) x10*3/uL Absolute Nucleated RBC 0.000 (0.0-0.012) X10*3/uL Nucleated RBC % (auto) 0.0 (0.0-0.2) /100WBC Sodium 138 (135-145) mmol/L Potassium 5.2 H (3.3-5.1) mmol/L Chloride 106 (96-108) mmol/L Carbon Dioxide 22 (22-29) mmol/L Anion Gap 15 (12-20) BUN 45 H (9-16) mg/dL Creatinine 1.91 H (0.5-1.4) mg/dL Estim Creat Clear Calc 47.4 Estimated GFR 36 Random Glucose 111 (60-115) mg/dL Calcium 9.8 D (8.4-10.2) mg/dL Total Bilirubin 0.3 (0.0-1.0) mg/dL AST 13 (5-37) U/L ALT 13 (0-40) U/L Alkaline Phosphatase 85 (39-117) U/L Troponin I High Sens < 2.7 (<3.5-35.0) ng/L Total Protein 7.1 (6.5-8.0) g/dL Albumin 3.6 (3.5-5.0) g/dL Urine Color Urine Appearance Urine pH (5.0-9.0) Ur Specific Tensed (1.005-1.025) Urine Protein (Neg-Trace) mg/dL Urine Glucose (UA) (Negative) mg/dL Urine Ketones (Negative) mg/dL Urine Blood (Negative) Urine Nitrite (Negative) Ur Leukocyte Esterase (Negative) Urine RBC (0-2) /HPF Urine WBC (0-5) /HPF Ur Squamous Epith Cells (0-2) /HPF Urine Bacteria (None Seen) Hyaline Casts (0-2) /LPF 12/07/22 12/08/22 12/08/22 Range/Units 20:09 00:21 02:04 WBC (4.8-10.8) X10*3/uL RBC (4.60-5.80) X10*6/uL Hgb (14.0-18.0) g/dl Hct (42.0-52.0) % MCV (80.0-98.0) fL MCH (27.0-33.0) pg MCHC (31.0-36.0) g/dl RDW (11.0-16.0) % Plt Count (160-400) X10*3/uL MPV (9.4-12.4) fL Immature Gran % (Auto) (0.0-0.4) % Neut % (Auto) (45-73) % Lymph % (Auto) (20-40) % [place] % (Auto) (2-11) % Eos % (Auto) (0-4) % Baso % (Auto) (0-2) % Lymph # (Auto) (1.2-4.9) X10*3/uL [place] # (Auto) (0.1-1.2) X10*3/uL Eos # (Auto) (0.0-0.4) X10*3/uL Baso # (Auto) (0.0-0.2) X10*3/uL Abs Immat Gran (auto) (0.00-0.03) X10*3/uL Absolute Neuts (auto) (2.0-8.3) x10*3/uL Absolute Nucleated RBC (0.0-0.012) X10*3/uL Nucleated RBC % (auto) (0.0-0.2) /100WBC Sodium 140 140 (135-145) mmol/L Potassium 5.6 H 5.7 H (3.3-5.1) mmol/L Chloride 108 109 H (96-108) mmol/L Carbon Dioxide 25 23 (22-29) mmol/L Anion Gap 13 14 (12-20) BUN 42 H 39 H (9-16) mg/dL Creatinine 1.57 H 1.47 H (0.5-1.4) mg/dL Estim Creat Clear Calc 57.7 61.6 Estimated GFR 45 48 Random Glucose 175 H 208 H (60-115) mg/dL Calcium 9.7 9.8 (8.4-10.2) mg/dL Total Bilirubin (0.0-1.0) mg/dL AST (5-37) U/L ALT (0-40) U/L Alkaline Phosphatase (39-117) U/L Troponin I High Sens (<3.5-35.0) ng/L Total Protein (6.5-8.0) g/dL Albumin (3.5-5.0) g/dL Urine Color Yellow Urine Appearance Clear Urine pH 5.0 (5.0-9.0) Ur Specific Tensed 1.010 (1.005-1.025) Urine Protein 30 (1+) H (Neg-Trace) mg/dL Urine Glucose (UA) Negative (Negative) mg/dL Urine Ketones Negative (Negative) mg/dL Urine Blood Negative (Negative) Urine Nitrite Negative (Negative) Ur Leukocyte Esterase Negative (Negative) Urine RBC 0-2 (0-2) /HPF Urine WBC 0-5 (0-5) /HPF Ur Squamous Epith Cells 0-2 (0-2) /HPF Urine Bacteria None Seen (None Seen) Hyaline Casts 6-10 (0-2) /LPF 12/08/22 Range/Units 05:58 WBC (4.8-10.8) X10*3/uL RBC (4.60-5.80) X10*6/uL Hgb (14.0-18.0) g/dl Hct (42.0-52.0) % MCV (80.0-98.0) fL MCH (27.0-33.0) pg MCHC (31.0-36.0) g/dl RDW (11.0-16.0) % Plt Count (160-400) X10*3/uL MPV (9.4-12.4) fL Immature Gran % (Auto) (0.0-0.4) % Neut % (Auto) (45-73) % Lymph % (Auto) (20-40) % [place] % (Auto) (2-11) % Eos % (Auto) (0-4) % Baso % (Auto) (0-2) % Lymph # (Auto) (1.2-4.9) X10*3/uL [place] # (Auto) (0.1-1.2) X10*3/uL Eos # (Auto) (0.0-0.4) X10*3/uL Baso # (Auto) (0.0-0.2) X10*3/uL Abs Immat Gran (auto) (0.00-0.03) X10*3/uL Absolute Neuts (auto) (2.0-8.3) x10*3/uL Absolute Nucleated RBC (0.0-0.012) X10*3/uL Nucleated RBC % (auto) (0.0-0.2) /100WBC Sodium 142 (135-145) mmol/L Potassium 5.5 H (3.3-5.1) mmol/L Chloride 109 H (96-108) mmol/L Carbon Dioxide 26 (22-29) mmol/L Anion Gap 13 (12-20) BUN (9-16) mg/dL Creatinine (0.5-1.4) mg/dL Estim Creat Clear Calc Estimated GFR Random Glucose (60-115) mg/dL Calcium (8.4-10.2) mg/dL Total Bilirubin (0.0-1.0) mg/dL AST (5-37) U/L ALT (0-40) U/L Alkaline Phosphatase (39-117) U/L Troponin I High Sens (<3.5-35.0) ng/L Total Protein (6.5-8.0) g/dL Albumin (3.5-5.0) g/dL Urine Color Urine Appearance Urine pH (5.0-9.0) Ur Specific Tensed (1.005-1.025) Urine Protein (Neg-Trace) mg/dL Urine Glucose (UA) (Negative) mg/dL Urine Ketones (Negative) mg/dL Urine Blood (Negative) Urine Nitrite (Negative) Ur Leukocyte Esterase (Negative) Urine RBC (0-2) /HPF Urine WBC (0-5) /HPF Ur Squamous Epith Cells (0-2) /HPF Urine Bacteria (None Seen) Hyaline Casts (0-2) /LPF Independent Interpretation I performed an independent interpretation of an: EKG Interpretation: Normal sinus rhythm, HR-84, no STEMI, VA/QRS/QTC is within normal limits. External Record Review External record reviewed: Prior outpatient labs Chronic Conditions Patient?s care impacted by: Diabetes and Hypertension Discharge Plan Discharge Clinical Impression: Hyperkalemia, JUAN (acute kidney injury) Patient Disposition: Home, Self-Care Instructions: Acute Kidney Injury (DC), Potassium Content of Foods List (ED), Hyperkalemia (ED) Additional Instructions: 1. Reanudar todos los medicamentos caseros seg?n lo prescrito 2. Clem un seguimiento con kong m?dico para hany evaluaci?n adicional de la funci?n renal. Regrese a la lux de emergencias si los s?ntomas empeoran. Vuelva a controlar el nivel de potasio en 2 d?as en el consultorio de kong PCP 1. Resume all home medications as prescribed 2. Follow-up with your doctor for further evaluation of kidney function. Return to the ER for any worsening symptoms. Recheck potassium level in 2 days at your PCP office Prescriptions: No Action atorvastatin 80 mg tablet 80 mg PO DAILY alprazolam 1 mg tablet 1 mg PO BID PRN (Reason: Sleep) tizanidine 4 mg tablet 4 mg PO Q6H PRN (Reason: muscle spasm) famotidine 20 mg tablet 20 mg PO DAILY tamsulosin 0.4 mg capsule 0.4 mg PO DAILY gabapentin 300 mg capsule 300 mg PO DAILY bumetanide 1 mg tablet 1 mg PO DAILY Hold Instructions: resume tuesday albuterol sulfate 90 mcg/actuation HFA aerosol inhaler 90 mcg inhalation Q6H PRN (Reason: Shortness Of Breath) fluoxetine 20 mg capsule 60 mg PO DAILY fluticasone furoate-vilanterol [Breo Ellipta] 100-25 mcg/dose blister with device 1 ea inhalation DAILY methadone 10 mg/mL Concentrate 43 mg PO DAILY insulin lispro [Humalog KwikPen Insulin] 100 unit/mL insulin pen See Protocol subcut TIDAC Protocol: Insulin Correction Scale Less than or equal to 110 ---- Give (units): 0 111 to 150 Give (units): 0 151 to 200 Give (units): 2 201 to 250 Give (units): 4 251 to 300 Give (units): 6 301 to 350 Give (units): 8 Greater than 350 Give (units): 10 Call MD if Blood Glucose > : 350 cholecalciferol (vitamin D3) [Vitamin D3] 25 mcg (1,000 unit) Tablet 25 mcg PO DAILY insulin degludec [Tresiba FlexTouch U-100] 100 unit/mL (3 mL) insulin pen 25 unit subcut BID Spiriva Respimat 1.25 mcg/actuation mist 2 puff inhalation DAILY Ozempic 0.25 mg or 0.5 mg (2 mg/3 mL) pen injector 0.25 mg subcut KONG@0900 Rx Instructions: Patient has not started yet- to be picked up at pharmacy amlodipine [Norvasc] 5 mg tablet 5 mg PO DAILY 30 Days Qty: 30 0RF Referrals: Freddy Rai III, MD [Primary Care Provider] - Print Language: Togolese
[2022-12-07 19:41] VITALS: BP 103/61; PULSE 84; RESP 18; TEMP 36.2; O2SAT 98; BMI 30.4
--- NOTE | 2022-12-07 20:13 | MHC.EDTECH ---
PATIENT EKG DONE AND WAS READ BY PROVIDER ,URINE SAMPLE COLLECTED AND BLOOD DRAWN AND SENT TO LAB .
[2022-12-07 20:16] LABS: Basophils Absolute Auto 0.1 X10*3/uL (0.0-0.2); Basophils Percent Auto 0.9 % (0-2); Eosinophils Absolute Auto 0.3 X10*3/uL (0.0-0.4); Eosinophils Percent Auto 3.4 % (0-4); Hematocrit 37.1 % (42.0-52.0); Hemoglobin 11.4 g/dl (14.0-18.0); Imm Gran Abs Auto 0.05 X10*3/uL (0.00-0.03); Imm Gran Pct Auto 0.5 % (0.0-0.4); Lymphocytes Absolute Auto 3.3 X10*3/uL (1.2-4.9); Lymphocytes Percent Auto 33.7 % (20-40); MANUAL DIFF FLAG NO; Mean Corpuscular HGB Conc 30.7 g/dl (31.0-36.0); Mean Corpuscular Hemoglobin 28.5 pg (27.0-33.0); Mean Corpuscular Volume 92.8 fL (80.0-98.0); Monocytes Absolute Auto 1.1 X10*3/uL (0.1-1.2); Monocytes Percent Auto 10.8 % (2-11); Neutrophils Percent Auto 50.7 % (45-73); Platelet Count 262 X10*3/uL (160-400); Red Cell Distribution Width 13.5 % (11.0-16.0); White Blood Count 9.8 X10*3/uL (4.8-10.8)
[2022-12-07 20:38] LABS: Alanine Aminotransferase 13 U/L (0-40); Albumin Level 3.6 g/dL (3.5-5.0); Alkaline Phosphatase 85 U/L (39-117); Anion Gap 15 (12-20); Aspartate Amino Transferase 13 U/L (5-37); Bilirubin Total 0.3 mg/dL (0.0-1.0); Blood Urea Nitrogen 45 mg/dL (9-16); Calcium 9.8 mg/dL (8.4-10.2); Carbon Dioxide 22 mmol/L (22-29); Chloride 106 mmol/L (96-108); Creatinine Clr Calc Pharmacy 47.4; Estimated Glomerular Filt Rate 36; Glucose Random 111 mg/dL (60-115); Potassium 5.2 mmol/L (3.3-5.1); Sodium 138 mmol/L (135-145); Total Protein 7.1 g/dL (6.5-8.0)
[2022-12-07 20:44] LABS: Troponin-I High Sensitivity < 2.7 ng/L (<3.5-35.0)
[2022-12-07 20:47] LABS: Appearance Urine Clear; Color Urine Yellow; Glucose Urine UA Negative (Negative); Leukocyte Esterase Urine Negative (Negative); Nitrite Urine Negative (Negative); UMIC TRIGGER UACC YES; Urine Blood Negative (Negative); Urine Ketones Negative (Negative); Urine Protein 30 (1+) mg/dL (Neg-Trace)
[2022-12-07 20:55] LABS: Bacteria Urine None Seen (None Seen); RBC Urine 0-2 /HPF (0-2); Squamous Epithelial Cell Urine 0-2 /HPF (0-2); WBC Urine 0-5 /HPF (0-5)
--- NOTE | 2022-12-07 21:35 | PC.NURSE ---
pt was sent in by PCP for elevated potassium, seen recently for similar episodes
[2022-12-07] MEDS: 0.9 % Sodium Chloride 1,000 ML 999 ML IV (22:44)
[2022-12-08 00:47] LABS: Anion Gap 13 (12-20); Blood Urea Nitrogen 42 mg/dL (9-16); Calcium 9.7 mg/dL (8.4-10.2); Carbon Dioxide 25 mmol/L (22-29); Chloride 108 mmol/L (96-108); Creatinine Clr Calc Pharmacy 57.7; Estimated Glomerular Filt Rate 45; Glucose Random 175 mg/dL (60-115); Potassium 5.6 mmol/L (3.3-5.1); Sodium 140 mmol/L (135-145)
[2022-12-08] MEDS: Sodium Zirconium Cyclosilicate 10 GM POWD.PACK PO (01:11)
--- NOTE | 2022-12-08 01:13 | PC.NURSE ---
pt K 5.6 Dr. Hernandez aware
[2022-12-08 02:46] LABS: Anion Gap 14 (12-20); Blood Urea Nitrogen 39 mg/dL (9-16); Calcium 9.8 mg/dL (8.4-10.2); Carbon Dioxide 23 mmol/L (22-29); Chloride 109 mmol/L (96-108); Creatinine Clr Calc Pharmacy 61.6; Estimated Glomerular Filt Rate 48; Glucose Random 208 mg/dL (60-115); Potassium 5.7 mmol/L (3.3-5.1); Sodium 140 mmol/L (135-145)
[2022-12-08] MEDS: Calcium Gluconate/NaCl,Iso-Osm 2 GM/100 ML PLAST..BAG IV (03:17)
[2022-12-08] MEDS: Dextrose 50 % 25 GM/50 ML SYRINGE IVPUSH (03:17)
[2022-12-08] MEDS: Insulin Regular, Human 100 UNIT/ML 3 ML VIAL IVPUSH (03:19)
--- NOTE | 2022-12-08 03:27 | PC.NURSE ---
pt lab came back K 5.7, Dr. kaba,
[2022-12-08 05:16] VITALS: BP 149/79; PULSE 70; RESP 16; TEMP 36.7; O2SAT 95
[2022-12-08 06:17] LABS: Anion Gap 13 (12-20); Carbon Dioxide 26 mmol/L (22-29); Chloride 109 mmol/L (96-108); Potassium 5.5 mmol/L (3.3-5.1); Sodium 142 mmol/L (135-145)
[2022-12-08] MEDS: Furosemide 20 MG/2 ML VIAL IVPUSH (06:30)
[2022-12-08] MEDS: Albuterol Sulfate (0.083%) 2.5 MG/3 ML VIAL.NEB INHALE (06:30)
[2022-12-08 06:33] VITALS: PULSE 76; RESP 18; O2SAT 97
[2022-12-08 06:52] LABS: Glucose, Whole Blood 163 mg/dL (60-115)
== END 2022-12-08 06:58 | disposition home or self-care (01) ==
PROVIDERS: Registered Nurse Emergency; Student in an Organized Health Care Education/Training Program; Emergency Provider Internal Medicine; PCP Internal Medicine
DX: E87.5 Hyperkalemia (principal); R79.89 Other specified abnormal findings of blood chemistry; Z79.899 Other long term (current) drug therapy; Z87.891 Personal history of nicotine dependence
CPT/HCPCS: 36415; 80048; 80051; 80053; 81001; 82947; 84484; 85025; 93005; 94640; 96361; 96365; 96366; 96375; 99285; J0613; J1940

== ENCOUNTER 2023-10-17 13:01 | Emergency (ER) | payer MEDICARE, MEDICAID, SELFPAY ==
--- NOTE | ~2023-10-17 | XR_ITS ---
EXAMINATION: XR ABDOMEN KUB CLINICAL INDICATION: Abdominal pain COMPARISON: None available. TECHNIQUE: AP view of the abdomen. FINDINGS: There is no dilatation of large or small bowel to suggest ileus or obstruction. There is a large amount of stool throughout the colon from cecum through the distal descending colon consistent with constipation. Several calcifications in the pelvis likely represent phleboliths. There is degenerative change in the lower lumbar spine. XR/XR KUB IMPRESSION: 1. No evidence of obstruction. 2. Constipation.
[2023-10-17 13:10] VITALS: BP 153/62; PULSE 90; RESP 18; TEMP 36.6; O2SAT 98; BMI 30.4
--- NOTE | 2023-10-17 13:11 | ED_ITS ---
HPI - General Adult General Chief complaint: Abdominal Pain Stated complaint: abd pain spitting up Time Seen by Provider: 10/17/23 15:07 Source: patient and family Mode of arrival: ambulatory History of Present Illness HPI narrative: 63-year-old male who presents with complaints of intermittent abdominal cramping, has known constipation at baseline and states he has been spitting more frequently than usual. Related Data Home Medications ?Medication ?Instructions ?Recorded ?Confirmed albuterol sulfate 90 mcg/actuation 90 mcg inhalation Q6H PRN 11/17/22 11/17/22 aerosol inhaler Shortness Of Breath alprazolam 1 mg tablet 1 mg PO BID PRN Sleep 11/17/22 11/17/22 atorvastatin 80 mg tablet 80 mg PO DAILY 11/17/22 11/17/22 bumetanide 1 mg tablet 1 mg PO DAILY 11/17/22 11/17/22 cholecalciferol (vitamin D3) 25 25 mcg PO DAILY 11/17/22 11/17/22 mcg (1,000 unit) tablet (Vitamin D3) famotidine 20 mg tablet 20 mg PO DAILY 11/17/22 11/17/22 fluoxetine 20 mg capsule 60 mg PO DAILY 11/17/22 11/17/22 fluticasone furoate 100 1 ea inhalation DAILY 11/17/22 11/17/22 mcg-vilanterol 25 mcg/dose inhalation powder (Breo Ellipta) gabapentin 300 mg capsule 300 mg PO DAILY 11/17/22 11/17/22 insulin degludec 100 unit/mL (3 25 unit subcut BID 11/17/22 11/17/22 mL) subcutaneous pen (Tresiba FlexTouch U-100 insulin) insulin lispro 100 unit/mL See Protocol subcut TIDAC 11/17/22 11/17/22 subcutaneous pen (Humalog KwikPen (U-100) Insulin) methadone 10 mg/mL oral concentrate 43 mg PO DAILY 11/17/22 11/17/22 semaglutide 0.25 mg or 0.5 mg (2 0.25 mg subcut KONG@0900 11/17/22 11/17/22 mg/3 mL) subcutaneous pen injector (Ozempic) tamsulosin 0.4 mg capsule 0.4 mg PO DAILY 11/17/22 11/17/22 tiotropium bromide 1.25 2 puff inhalation DAILY 11/17/22 11/17/22 mcg/actuation mist for inhalation (Spiriva Respimat) tizanidine 4 mg tablet 4 mg PO Q6H PRN muscle spasm 11/17/22 11/17/22 Previous Rx's ?Medication ?Instructions ?Recorded amlodipine 5 mg tablet (Norvasc) 5 mg PO DAILY 30 days #30 tabs 11/18/22 sodium zirconium cyclosilicate 5 5 g PO Q OTHER DAY #30 ea 10/17/23 gram oral powder packet (Lokelma) Allergies Allergy/AdvReac Type Severity Reaction Status Date / Time No Known Allergies Allergy Verified 10/17/23 13:13 [No Known Allergies*] Review of Systems 2 Review of Systems: Pertinent positives and negatives as stated in [facility] Past Medical History Source: nursing notes reviewed Medical History Mood disorder Mixed hyperlipidemia Diabetes HTN (hypertension) Social History Social History Household Members: Spouse Housing: Apartment Do you presently have visiting nurse 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 GENERAL: Well developed, well nourished, in no acute distress. HEAD: Normocephalic/atraumatic EYES: PERRLA, EOMI EARS: Ext canals without abnormality NOSE: Nares patent bilateral OROPHARYNX: no oral lesions noted, posterior pharynx clear NECK: Supple, no adenopathy LUNGS: Normal breath sounds. No adventitious sounds or accessory muscle use. SpO2<97> CARDIOVASCULAR: Regular rate and rhythm without noted murmurs ABDOMEN: Soft, mild abd pain, non-distended with bowel sounds. MUSCULOSKELETAL: No tenderness, deformities, or effusions noted on gross inspection. EXTREMITIES: No cyanosis, clubbing or edema. SKIN: Inspection of the skin reveals no rashes NEUROLOGIC: Alert and oriented x 4. Strength and sensation to light touch were grossly intact x 4. Course Course Course Narrative: RME performed by Ester Hogue PA-C. Patient is a 63 year old assigned male at presenting to the emergency department with abdominal pain and excessive saliva. Patient states that every time he eats, he has to spit up saliva immediately. Patient states that he has been dealing with this for over a month. Patient states that he is not having to vomit and no food is coming back up. Patient states that he has been having normal bowel movements. Patient states he believes he has had a colonoscopy one time but he isn't sure. Detailed physical exam and review of systems are deferred to the cotton tier. Labs and swabs ordered. Patient placed back in the waiting room pending room availability and results. Medications Administered Generic Name Dose Route Start Last Admin Trade Name Freq PRN Reason Stop Dose Admin Dextrose 250 mls @ 750 mls/hr 10/17/23 16:16 10/17/23 17:23 D10 IV Infused Q15M PRN Infusion per Hypoglycemia Standing Ord. Discontinued Medications Generic Name Dose Route Start Last Admin Trade Name Freq PRN Reason Stop Dose Admin Calcium Gluconate 2 gm in 100 mls @ 400 mls/hr 10/17/23 16:16 10/17/23 17:24 Calcium Gluconate IV 10/17/23 16:30 Infused ONCE ONE Infusion Insulin Human Regular 5 unit 10/17/23 16:16 10/17/23 16:40 Insulin Regular, Human 100 Unit/Ml 3 Ml Vial IVPUSH 10/17/23 16:17 5 unit ONCE ONE Administration Sodium Zirconium Cyclosilicate 10 gm 10/17/23 16:16 10/17/23 16:44 Sodium Zirconium Cyclosilicate 10 Gm Powd.Pack PO 10/17/23 16:17 10 gm ONCE ONE Administration Medical Decision Making Medical Decision Making MDM Narrative: 63-year-old male with history and clinical presentation, DDX: Obstruction, constipation, no historical or clinical findings to suggest intra-abdominal infection or viral infection. I reviewed all investigations and hematologic indices are grossly stable without leukocytosis and a normocytic anemia no thrombocytopenia. Chemistry indices are a variation chronic results there is worsening of renal function in conjunction with a worsening hyperkalemia and patient is noted to be hyperglycemic without evidence of DKA or HHS and there are no magnesium or liver enzyme derangements. Urinalysis is negative for UTI or hematuria. Viral testing is negative for influenza/RSV/COVID-19 and KUB demonstrates significant constipation without evidence to suggest obstruction. INTERVENTION: On review of patient's chemistry indices the decision was made to provide patient with calcium gluconate, Lokelma, D50/insulin and repeat BMP. 1619: I discussed the case with Nephrology, Dr. Peck, and recommendations are after lowering potassium level to less than 5.5 patient can be discharged with Lokelma 5 g 3 times a week and a low potassium diet. 1744: Repeat BMP demonstrates improvement in renal function as well as potassium-5.1. Patient is otherwise discharged home with instructions to follow-up with his primary care doctor, continue with stool softening agents in the outpatient setting on a daily basis and also communicated to the patient the current recommendations by Nephrology. 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 Please see the discussion above 10/17/23 13:32 10/17/23 17:44 Labs: Lab Results 10/17/23 10/17/23 10/17/23 Range/Units 13:32 13:37 17:44 WBC 8.0 (4.8-10.8) X10*3/uL RBC 3.86 L (4.60-5.80) X10*6/uL Hgb 11.2 L (14.0-18.0) g/dl Hct 35.0 L (42.0-52.0) % MCV 90.7 (80.0-98.0) fL MCH 29.0 (27.0-33.0) pg MCHC 32.0 (31.0-36.0) g/dl RDW 13.4 (11.0-16.0) % Plt Count 289 (160-400) X10*3/uL MPV 11.9 (9.4-12.4) fL Immature Gran % (Auto) 0.5 H (0.0-0.4) % Neut % (Auto) 59.6 (45-73) % Lymph % (Auto) 30.2 (20-40) % [place] % (Auto) 6.6 (2-11) % Eos % (Auto) 2.2 (0-4) % Baso % (Auto) 0.9 (0-2) % Lymph # (Auto) 2.4 (1.2-4.9) X10*3/uL [place] # (Auto) 0.5 (0.1-1.2) X10*3/uL Eos # (Auto) 0.2 (0.0-0.4) X10*3/uL Baso # (Auto) 0.1 (0.0-0.2) X10*3/uL Abs Immat Gran (auto) 0.04 H (0.00-0.03) X10*3/uL Absolute Neuts (auto) 4.8 (2.0-8.3) x10*3/uL Absolute Nucleated RBC 0.000 (0.0-0.012) X10*3/uL Nucleated RBC % (auto) 0.0 (0.0-0.2) /100WBC Sodium 137 138 (135-145) mmol/L Potassium 6.5 H* (3.3-5.1) mmol/L Chloride 106 (96-108) mmol/L Carbon Dioxide 23 (22-29) mmol/L Anion Gap 15 (12-20) BUN 35 H (9-16) mg/dL Creatinine 1.68 H (0.5-1.4) mg/dL Estim Creat Clear Calc 53.2 Estimated GFR 41 POC Glucose 282 H (60-115) mg/dL Random Glucose 313 H (60-115) mg/dL Calcium 9.7 (8.4-10.2) mg/dL Magnesium 1.8 (1.6-2.6) mg/dL Total Bilirubin 0.4 (0.0-1.0) mg/dL AST 15 (5-37) U/L ALT 20 (0-40) U/L Alkaline Phosphatase 82 (39-117) U/L Total Protein 7.3 (6.5-8.0) g/dL Albumin 3.7 (3.5-5.0) g/dL Lipase 12 (8-78) U/L Urine Color Yellow Urine Appearance Clear Urine pH 6.0 (5.0-9.0) Ur Specific [place] 1.010 (1.005-1.025) Urine Protein 100 (2+) H (Neg-Trace) mg/dL Urine Glucose (UA) Negative (Negative) mg/dL Urine Ketones Negative (Negative) mg/dL Urine Blood Negative (Negative) Urine Nitrite Negative (Negative) Ur Leukocyte Esterase Negative (Negative) Urine RBC 0-2 (0-2) /HPF Urine WBC 0-5 (0-5) /HPF Ur Squamous Epith Cells 0-2 (0-2) /HPF Urine Bacteria None Seen (None Seen) Hyaline Casts 3-5 (0-2) /LPF Influenza Type A (PCR) NEGATIVE (Negative) Influenza Type B (PCR) NEGATIVE (Negative) RSV RNA Qual (PCR) NEGATIVE (Negative) SARS-CoV-2 RNA (RT-PCR) NEGATIVE (Negative) 10/17/23 10/17/23 10/17/23 Range/Units 17:44 17:44 17:44 WBC (4.8-10.8) X10*3/uL RBC (4.60-5.80) X10*6/uL Hgb (14.0-18.0) g/dl Hct (42.0-52.0) % MCV (80.0-98.0) fL MCH (27.0-33.0) pg MCHC (31.0-36.0) g/dl RDW (11.0-16.0) % Plt Count (160-400) X10*3/uL MPV (9.4-12.4) fL Immature Gran % (Auto) (0.0-0.4) % Neut % (Auto) (45-73) % Lymph % (Auto) (20-40) % [place] % (Auto) (2-11) % Eos % (Auto) (0-4) % Baso % (Auto) (0-2) % Lymph # (Auto) (1.2-4.9) X10*3/uL [place] # (Auto) (0.1-1.2) X10*3/uL Eos # (Auto) (0.0-0.4) X10*3/uL Baso # (Auto) (0.0-0.2) X10*3/uL Abs Immat Gran (auto) (0.00-0.03) X10*3/uL Absolute Neuts (auto) (2.0-8.3) x10*3/uL Absolute Nucleated RBC (0.0-0.012) X10*3/uL Nucleated RBC % (auto) (0.0-0.2) /100WBC Sodium 139 (135-145) mmol/L Potassium 5.1 D 5.1 (3.3-5.1) mmol/L Chloride 107 107 (96-108) mmol/L Carbon Dioxide 22 (22-29) mmol/L Anion Gap (12-20) BUN (9-16) mg/dL Creatinine (0.5-1.4) mg/dL Estim Creat Clear Calc Estimated GFR POC Glucose (60-115) mg/dL Random Glucose (60-115) mg/dL Calcium (8.4-10.2) mg/dL Magnesium (1.6-2.6) mg/dL Total Bilirubin (0.0-1.0) mg/dL AST (5-37) U/L ALT (0-40) U/L Alkaline Phosphatase (39-117) U/L Total Protein (6.5-8.0) g/dL Albumin (3.5-5.0) g/dL Lipase (8-78) U/L Urine Color Urine Appearance Urine pH (5.0-9.0) Ur Specific [place] (1.005-1.025) Urine Protein (Neg-Trace) mg/dL Urine Glucose (UA) (Negative) mg/dL Urine Ketones (Negative) mg/dL Urine Blood (Negative) Urine Nitrite (Negative) Ur Leukocyte Esterase (Negative) Urine RBC (0-2) /HPF Urine WBC (0-5) /HPF Ur Squamous Epith Cells (0-2) /HPF Urine Bacteria (None Seen) Hyaline Casts (0-2) /LPF Influenza Type A (PCR) (Negative) Influenza Type B (PCR) (Negative) RSV RNA Qual (PCR) (Negative) SARS-CoV-2 RNA (RT-PCR) (Negative) 05/12/0410/17/23 10/17/23 Range/Units 17:44 17:44 17:44 WBC (4.8-10.8) X10*3/uL RBC (4.60-5.80) X10*6/uL Hgb (14.0-18.0) g/dl Hct (42.0-52.0) % MCV (80.0-98.0) fL MCH (27.0-33.0) pg MCHC (31.0-36.0) g/dl RDW (11.0-16.0) % Plt Count (160-400) X10*3/uL MPV (9.4-12.4) fL Immature Gran % (Auto) (0.0-0.4) % Neut % (Auto) (45-73) % Lymph % (Auto) (20-40) % [place] % (Auto) (2-11) % Eos % (Auto) (0-4) % Baso % (Auto) (0-2) % Lymph # (Auto) (1.2-4.9) X10*3/uL [place] # (Auto) (0.1-1.2) X10*3/uL Eos # (Auto) (0.0-0.4) X10*3/uL Baso # (Auto) (0.0-0.2) X10*3/uL Abs Immat Gran (auto) (0.00-0.03) X10*3/uL Absolute Neuts (auto) (2.0-8.3) x10*3/uL Absolute Nucleated RBC (0.0-0.012) X10*3/uL Nucleated RBC % (auto) (0.0-0.2) /100WBC Sodium (135-145) mmol/L Potassium (3.3-5.1) mmol/L Chloride (96-108) mmol/L Carbon Dioxide 22 (22-29) mmol/L Anion Gap 14 15 (12-20) BUN 38 H 38 H (9-16) mg/dL Creatinine 1.53 H (0.5-1.4) mg/dL Estim Creat Clear Calc Estimated GFR POC Glucose (60-115) mg/dL Random Glucose (60-115) mg/dL Calcium (8.4-10.2) mg/dL Magnesium (1.6-2.6) mg/dL Total Bilirubin (0.0-1.0) mg/dL AST (5-37) U/L ALT (0-40) U/L Alkaline Phosphatase (39-117) U/L Total Protein (6.5-8.0) g/dL Albumin (3.5-5.0) g/dL Lipase (8-78) U/L Urine Color Urine Appearance Urine pH (5.0-9.0) Ur Specific [place] (1.005-1.025) Urine Protein (Neg-Trace) mg/dL Urine Glucose (UA) (Negative) mg/dL Urine Ketones (Negative) mg/dL Urine Blood (Negative) Urine Nitrite (Negative) Ur Leukocyte Esterase (Negative) Urine RBC (0-2) /HPF Urine WBC (0-5) /HPF Ur Squamous Epith Cells (0-2) /HPF Urine Bacteria (None Seen) Hyaline Casts (0-2) /LPF Influenza Type A (PCR) (Negative) Influenza Type B (PCR) (Negative) RSV RNA Qual (PCR) (Negative) SARS-CoV-2 RNA (RT-PCR) (Negative) 10/17/23 10/17/23 10/17/23 Range/Units 17:44 17:44 17:44 WBC (4.8-10.8) X10*3/uL RBC (4.60-5.80) X10*6/uL Hgb (14.0-18.0) g/dl Hct (42.0-52.0) % MCV (80.0-98.0) fL MCH (27.0-33.0) pg MCHC (31.0-36.0) g/dl RDW (11.0-16.0) % Plt Count (160-400) X10*3/uL MPV (9.4-12.4) fL Immature Gran % (Auto) (0.0-0.4) % Neut % (Auto) (45-73) % Lymph % (Auto) (20-40) % [place] % (Auto) (2-11) % Eos % (Auto) (0-4) % Baso % (Auto) (0-2) % Lymph # (Auto) (1.2-4.9) X10*3/uL [place] # (Auto) (0.1-1.2) X10*3/uL Eos # (Auto) (0.0-0.4) X10*3/uL Baso # (Auto) (0.0-0.2) X10*3/uL Abs Immat Gran (auto) (0.00-0.03) X10*3/uL Absolute Neuts (auto) (2.0-8.3) x10*3/uL Absolute Nucleated RBC (0.0-0.012) X10*3/uL Nucleated RBC % (auto) (0.0-0.2) /100WBC Sodium (135-145) mmol/L Potassium (3.3-5.1) mmol/L Chloride (96-108) mmol/L Carbon Dioxide (22-29) mmol/L Anion Gap (12-20) BUN (9-16) mg/dL Creatinine 1.53 H (0.5-1.4) mg/dL Estim Creat Clear Calc 58.4 58.4 Estimated GFR 46 46 POC Glucose (60-115) mg/dL Random Glucose 219 H (60-115) mg/dL Calcium (8.4-10.2) mg/dL Magnesium (1.6-2.6) mg/dL Total Bilirubin (0.0-1.0) mg/dL AST (5-37) U/L ALT (0-40) U/L Alkaline Phosphatase (39-117) U/L Total Protein (6.5-8.0) g/dL Albumin (3.5-5.0) g/dL Lipase (8-78) U/L Urine Color Urine Appearance Urine pH (5.0-9.0) Ur Specific [place] (1.005-1.025) Urine Protein (Neg-Trace) mg/dL Urine Glucose (UA) (Negative) mg/dL Urine Ketones (Negative) mg/dL Urine Blood (Negative) Urine Nitrite (Negative) Ur Leukocyte Esterase (Negative) Urine RBC (0-2) /HPF Urine WBC (0-5) /HPF Ur Squamous Epith Cells (0-2) /HPF Urine Bacteria (None Seen) Hyaline Casts (0-2) /LPF Influenza Type A (PCR) (Negative) Influenza Type B (PCR) (Negative) RSV RNA Qual (PCR) (Negative) SARS-CoV-2 RNA (RT-PCR) (Negative) 10/17/23 10/17/23 Range/Units 17:44 17:44 WBC (4.8-10.8) X10*3/uL RBC (4.60-5.80) X10*6/uL Hgb (14.0-18.0) g/dl Hct (42.0-52.0) % MCV (80.0-98.0) fL MCH (27.0-33.0) pg MCHC (31.0-36.0) g/dl RDW (11.0-16.0) % Plt Count (160-400) X10*3/uL MPV (9.4-12.4) fL Immature Gran % (Auto) (0.0-0.4) % Neut % (Auto) (45-73) % Lymph % (Auto) (20-40) % [place] % (Auto) (2-11) % Eos % (Auto) (0-4) % Baso % (Auto) (0-2) % Lymph # (Auto) (1.2-4.9) X10*3/uL [place] # (Auto) (0.1-1.2) X10*3/uL Eos # (Auto) (0.0-0.4) X10*3/uL Baso # (Auto) (0.0-0.2) X10*3/uL Abs Immat Gran (auto) (0.00-0.03) X10*3/uL Absolute Neuts (auto) (2.0-8.3) x10*3/uL Absolute Nucleated RBC (0.0-0.012) X10*3/uL Nucleated RBC % (auto) (0.0-0.2) /100WBC Sodium (135-145) mmol/L Potassium (3.3-5.1) mmol/L Chloride (96-108) mmol/L Carbon Dioxide (22-29) mmol/L Anion Gap (12-20) BUN (9-16) mg/dL Creatinine (0.5-1.4) mg/dL Estim Creat Clear Calc Estimated GFR POC Glucose (60-115) mg/dL Random Glucose 216 H (60-115) mg/dL Calcium 9.9 10.0 (8.4-10.2) mg/dL Magnesium (1.6-2.6) mg/dL Total Bilirubin 0.2 (0.0-1.0) mg/dL AST 14 (5-37) U/L ALT 19 (0-40) U/L Alkaline Phosphatase 71 (39-117) U/L Total Protein 6.5 (6.5-8.0) g/dL Albumin 3.3 L (3.5-5.0) g/dL Lipase (8-78) U/L Urine Color Urine Appearance Urine pH (5.0-9.0) Ur Specific [place] (1.005-1.025) Urine Protein (Neg-Trace) mg/dL Urine Glucose (UA) (Negative) mg/dL Urine Ketones (Negative) mg/dL Urine Blood (Negative) Urine Nitrite (Negative) Ur Leukocyte Esterase (Negative) Urine RBC (0-2) /HPF Urine WBC (0-5) /HPF Ur Squamous Epith Cells (0-2) /HPF Urine Bacteria (None Seen) Hyaline Casts (0-2) /LPF Influenza Type A (PCR) (Negative) Influenza Type B (PCR) (Negative) RSV RNA Qual (PCR) (Negative) SARS-CoV-2 RNA (RT-PCR) (Negative) Independent Interpretation I performed an independent interpretation of an: EKG Interpretation: Normal sinus rhythm, HR-78, no STEMI, [place]/QRS/QTC is within normal limits. Radiology Impression Discussion of test interpretation with radiology: I have reviewed the radiologist's reading. Radiologist Impression: Please see the discussion above External Record Review External record reviewed: Outpatient record, Prior outpatient labs and Prior outpatient radiology Chronic Conditions Patient?s care impacted by: Diabetes CKD Critical Care Time Critical Care Time Critical Care Time: Yes Total Critical Care Time: 60 Attestation: I personally attest to this time spent taking care of the patient. Discharge Plan Discharge Clinical Impression: Hyperkalemia, Constipation, CKD (chronic kidney disease) Instructions: Constipation (ED), High Fiber Diet (ED), Potassium Content of Foods List (ED), Hyperkalemia (ED) Additional Instructions: 1. Resume all home medications as prescribed. 2. You have a new prescription for medicine that will keep your potassium under control. 3. You need to stick to a low potassium diet. 4. Follow-up with your primary care doctor and technology project manager in the next 1-2 days. Return to the ER for any worsening symptoms. Prescriptions: New Lokelma 5 gram powder in packet 5 g PO Q OTHER DAY Qty: 30 0RF Rx Instructions: 3x a week No Action atorvastatin 80 mg tablet 80 mg PO DAILY alprazolam 1 mg tablet 1 mg PO BID PRN (Reason: Sleep) tizanidine 4 mg tablet 4 mg PO Q6H PRN (Reason: muscle spasm) famotidine 20 mg tablet 20 mg PO DAILY tamsulosin 0.4 mg capsule 0.4 mg PO DAILY gabapentin 300 mg capsule 300 mg PO DAILY bumetanide 1 mg tablet 1 mg PO DAILY Hold Instructions: resume tuesday albuterol sulfate 90 mcg/actuation HFA aerosol inhaler 90 mcg inhalation Q6H PRN (Reason: Shortness Of Breath) fluoxetine 20 mg capsule 60 mg PO DAILY fluticasone furoate-vilanterol [Breo Ellipta] 100-25 mcg/dose blister with device 1 ea inhalation DAILY methadone 10 mg/mL Concentrate 43 mg PO DAILY insulin lispro [Humalog KwikPen Insulin] 100 unit/mL insulin pen See Protocol subcut TIDAC Protocol: Insulin Correction Scale Less than or equal to 110 ---- Give (units): 0 111 to 150 Give (units): 0 151 to 200 Give (units): 2 201 to 250 Give (units): 4 251 to 300 Give (units): 6 301 to 350 Give (units): 8 Greater than 350 Give (units): 10 Call MD if Blood Glucose > : 350 cholecalciferol (vitamin D3) [Vitamin D3] 25 mcg (1,000 unit) Tablet 25 mcg PO DAILY insulin degludec [Tresiba FlexTouch U-100] 100 unit/mL (3 mL) insulin pen 25 unit subcut BID Spiriva Respimat 1.25 mcg/actuation mist 2 puff inhalation DAILY Ozempic 0.25 mg or 0.5 mg (2 mg/3 mL) pen injector 0.25 mg subcut KONG@0900 Rx Instructions: Patient has not started yet- to be picked up at pharmacy amlodipine [Norvasc] 5 mg tablet 5 mg PO DAILY 30 Days Qty: 30 0RF Referrals: Freddy Rai III, MD [Primary Care Provider] - Print Language: Austrian
[2023-10-17 13:41] LABS: MANUAL DIFF FLAG NO
[2023-10-17 13:41] LABS: Glucose, Whole Blood 282 mg/dL (60-115)
[2023-10-17 13:43] LABS: Appearance Urine Clear; Color Urine Yellow; Glucose Urine UA Negative (Negative); Leukocyte Esterase Urine Negative (Negative); Nitrite Urine Negative (Negative); UMIC TRIGGER UACC YES; Urine Blood Negative (Negative); Urine Ketones Negative (Negative); Urine Protein 100 (2+) mg/dL (Neg-Trace)
[2023-10-17 13:45] LABS: Bacteria Urine None Seen (None Seen); Basophils Absolute Auto 0.1 X10*3/uL (0.0-0.2); Basophils Percent Auto 0.9 % (0-2); Eosinophils Absolute Auto 0.2 X10*3/uL (0.0-0.4); Eosinophils Percent Auto 2.2 % (0-4); Hemoglobin 11.2 g/dl (14.0-18.0); Imm Gran Abs Auto 0.04 X10*3/uL (0.00-0.03); Imm Gran Pct Auto 0.5 % (0.0-0.4); Lymphocytes Absolute Auto 2.4 X10*3/uL (1.2-4.9); Lymphocytes Percent Auto 30.2 % (20-40); Mean Corpuscular Volume 90.7 fL (80.0-98.0); Mean Platelet Volume 11.9 fL (9.4-12.4); Monocytes Absolute Auto 0.5 X10*3/uL (0.1-1.2); Monocytes Percent Auto 6.6 % (2-11); Neutrophils Absolute Auto 4.8 x10*3/uL (2.0-8.3); Neutrophils Percent Auto 59.6 % (45-73); Platelet Count 289 X10*3/uL (160-400); RBC Urine 0-2 /HPF (0-2); Red Blood Count 3.86 X10*6/uL (4.60-5.80); Red Cell Distribution Width 13.4 % (11.0-16.0); Squamous Epithelial Cell Urine 0-2 /HPF (0-2); WBC Urine 0-5 /HPF (0-5)
[2023-10-17 14:07] LABS: Alanine Aminotransferase 20 U/L (0-40); Albumin Level 3.7 g/dL (3.5-5.0); Alkaline Phosphatase 82 U/L (39-117); Anion Gap 15 (12-20); Aspartate Amino Transferase 15 U/L (5-37); Bilirubin Total 0.4 mg/dL (0.0-1.0); Blood Urea Nitrogen 35 mg/dL (9-16); Calcium 9.7 mg/dL (8.4-10.2); Carbon Dioxide 23 mmol/L (22-29); Chloride 106 mmol/L (96-108); Creatinine Clr Calc Pharmacy 53.2; Estimated Glomerular Filt Rate 41; Glucose Random 313 mg/dL (60-115); Lipase 12 U/L (8-78); Magnesium 1.8 mg/dL (1.6-2.6); Potassium 6.5 mmol/L (3.3-5.1); Sodium 137 mmol/L (135-145); Total Protein 7.3 g/dL (6.5-8.0)
--- NOTE | 2023-10-17 14:10 | ECG_ITS ---
Test Reason : HYPERKALEMIA Blood Pressure : / mmHG Vent. Rate : 078 BPM Atrial Rate : 078 BPM P-R Int : 164 ms QRS Dur : 086 ms QT Int : 372 ms P-R-T Axes : 033 -04 034 degrees QTc Int : 424 ms Normal sinus rhythm Normal ECG When compared with ECG of 07-DEC-2022 19:49, Nonspecific T wave abnormality no longer evident in Lateral leads Referred By: Ester Hogue Electronically Signed By:Isaac Guzmán
[2023-10-17 14:19] LABS: Influenza A PCR NEGATIVE (Negative); Influenza B PCR NEGATIVE (Negative); Resp Syncy Virus RNA Qual PCR NEGATIVE (Negative); SARS COV2 PCR INHOUSE NEGATIVE (Negative)
[2023-10-17 15:10] VITALS: BP 149/71; PULSE 80; RESP 13; O2SAT 97
--- NOTE | 2023-10-17 15:23 | PC.NURSE ---
PT ENDORSES LOWER ABD PAIN FOR THE PAST WK OR SO. POOR HISTORIAN, AT BEDSIDE. DENIES DYSURIA, STATES CONSTIPATION, WORSE OF LATE. DENIES N/V. STATES HE HAS BEEN TAKING LOKELMA AT HOME.
[2023-10-17] MEDS: Insulin Regular, Human 100 UNIT/ML 3 ML VIAL IVPUSH (16:40)
[2023-10-17] MEDS: Calcium Gluconate/NaCl,Iso-Osm 2 GM/100 ML PLAST..BAG IV (16:40)
[2023-10-17] MEDS: Dextrose 10 % 250 ML 750 ML IV (16:43)
[2023-10-17] MEDS: Sodium Zirconium Cyclosilicate 10 GM POWD.PACK PO (16:44)
[2023-10-17 17:41] VITALS: BP 152/83; PULSE 77; RESP 16; TEMP 36.3; O2SAT 98
--- NOTE | 2023-10-17 17:48 | MHC.EDTECH ---
1800 rounding done ,vitals taken and repeated blood drawn and sent to lab .
[2023-10-17 18:09] LABS: Anion Gap 15 (12-20); Blood Urea Nitrogen 38 mg/dL (9-16); Carbon Dioxide 22 mmol/L (22-29); Chloride 107 mmol/L (96-108); Creatinine Clr Calc Pharmacy 58.4; Estimated Glomerular Filt Rate 46; Glucose Random 216 mg/dL (60-115); Potassium 5.1 mmol/L (3.3-5.1); Sodium 139 mmol/L (135-145)
[2023-10-17 18:10] LABS: Alanine Aminotransferase 19 U/L (0-40); Albumin Level 3.3 g/dL (3.5-5.0); Alkaline Phosphatase 71 U/L (39-117); Anion Gap 14 (12-20); Aspartate Amino Transferase 14 U/L (5-37); Bilirubin Total 0.2 mg/dL (0.0-1.0); Blood Urea Nitrogen 38 mg/dL (9-16); Calcium 9.9 mg/dL (8.4-10.2); Carbon Dioxide 22 mmol/L (22-29); Chloride 107 mmol/L (96-108); Creatinine Clr Calc Pharmacy 58.4; Estimated Glomerular Filt Rate 46; Glucose Random 219 mg/dL (60-115); Potassium 5.1 mmol/L (3.3-5.1); Sodium 138 mmol/L (135-145); Total Protein 6.5 g/dL (6.5-8.0)
[2023-10-17 19:08] VITALS: BP 165/82; PULSE 77; RESP 15; TEMP 36.6; O2SAT 97
[2023-10-17 20:57] VITALS: BP 165/82; PULSE 77; RESP 15; TEMP 36.6; O2SAT 97
== END 2023-10-17 19:30 | disposition home or self-care (01) ==
PROVIDERS: Physician Assistant Medical; Emergency Provider Student in an Organized Health Care Education/Training Program; PCP Internal Medicine
DX: E87.5 Hyperkalemia (principal); I12.9 Hypertensive chronic kidney disease with stage 1 through stage 4 chronic kidney disease, or unspecified chronic kidney disease; E11.22 Type 2 diabetes mellitus with diabetic chronic kidney disease; N18.9 Chronic kidney disease, unspecified; R10.9 Unspecified abdominal pain; K59.00 Constipation, unspecified; Z79.899 Other long term (current) drug therapy; Z03.818 Encounter for observation for suspected exposure to other biological agents ruled out
CPT/HCPCS: 0241U; 36415; 74018; 80048; 80053; 81001; 82947; 83690; 83735; 85025; 93005; 96365; 96375; 99285; J0613

== ENCOUNTER → 2023-10-17 14:10 | Outpatient (BNV) | payer MEDICARE, MEDICAID, SELFPAY | PROVIDERS: Emergency Provider Student in an Organized Health Care Education/Training Program; PCP Internal Medicine; Visit Provider Internal Medicine Cardiovascular Disease | DX: E87.5 Hyperkalemia (principal) | CPT/HCPCS: 93010 ==